=== PATIENT | female | born 1955 | race Caucasian/White ===

== ENCOUNTER 2023-07-20 07:10 | Outpatient (OUT) | payer MEDICARE, SELFPAY ==
[2023-07-20 08:28] LABS: Alanine Aminotransferase 35 U/L (14-59); Albumin Globulin Ratio 1.2; Albumin Level 3.8 g/dL (3.4-5.0); Alkaline Phosphatase 61 U/L (46-116); Anion Gap 10.3; Aspartate Amino Transferase 18 U/L (15-37); BUN Creatinine Ratio 12.1; Bilirubin Total 1.4 mg/dL (0.2-1.0); Calcium 9.1 mg/dL (8.5-10.1); Carbon Dioxide 32.7 mmol/L (21.0-32.0); Chloride 104 mmol/L (98-107); Chol HDL Ratio 2.9; Cholesterol 186 mg/dL (<=200); Estimated GFR (African America >60 (>=60); Estimated GFR (Non-African Ame >60 (>=60); Globulin 3.3 g/dL; Glucose 110 mg/dL (74-106); HDL Cholesterol 65 mg/dL (40-60); Sodium 143 mmol/L (136-145); Total Protein 7.1 g/dL (6.4-8.2); Triglycerides 47 mg/dL (<=150); VLDL CHOLESTEROL 9.4 mg/dL
== END 2023-07-20 07:11 | disposition home or self-care (01) ==
PROVIDERS: Visit Provider Nurse Practitioner Family
DX: E78.2 Mixed hyperlipidemia (principal); I10 Essential (primary) hypertension
CPT/HCPCS: 36415; 80053; 80061

== ENCOUNTER 2023-07-20 07:15 | Outpatient (OUT) | payer MEDICARE, SELFPAY ==
[2023-07-20 07:34] LABS: Basophils Absolute Auto 0.1 10^3/uL (0.0-0.1); Basophils Percent Auto 1.2 % (0.2-2.0); Eosinophils Absolute Auto 0.1 10^3/uL (0.0-0.7); Eosinophils Percent Auto 3.1 % (0.9-7.0); Hematocrit 39.4 % (36.0-48.0); Hemoglobin 13.2 g/dL (12.0-16.0); Lymphocytes Absolute Auto 1.5 10^3/uL (1.2-3.8); Lymphocytes Percent Auto 35.2 % (20.5-60.0); Mean Corpuscular HGB Conc 33.5 g/dL (29.9-35.2); Mean Corpuscular Hemoglobin 32.1 pg (26.7-34.0); Mean Corpuscular Volume 95.9 fL (81.0-99.0); Mean Platelet Volume 9.4 fL (9.5-13.5); Monocytes Absolute Auto 0.4 10^3/uL (0.3-0.8); Neutrophils Absolute Auto 2.2 10^3/uL (1.4-6.5); Neutrophils Percent Auto 51.5 % (43.0-75.0); Platelet Count 215 10^3/uL (150-450); Red Blood Count 4.11 10^6/uL (4.20-5.40); White Blood Count 4.2 10^3/uL (4.0-11.0)
[2023-07-20 07:53] LABS: Estimated Average Glucose 114 mg/dL; Glycohemoglobin A1C 5.6 % (4.5-6.2)
== END 2023-07-20 07:16 | disposition home or self-care (01) ==
LOC: LAB 07:15
DX: Z00.00 Encounter for general adult medical examination without abnormal findings (principal); E78.2 Mixed hyperlipidemia; I10 Essential (primary) hypertension
CPT/HCPCS: 36415; 80053; 80061; 83036; 84443; 85025

== ENCOUNTER 2024-02-01 07:06 | Outpatient (OUT) | payer MEDICARE, SELFPAY ==
--- OUTSIDE RECORDS SUMMARY | 2024-02-01 07:11 | XMS_ITS | CCD ---
Author Organization [facility] Care Team Providers Care Video Conference Specialist Name Role Phone Becky Holder Unavailable GEORGE Holder Primary Care Provider GEORGE Holder Attending Provider [phone] MD Sylvie Merritt Emergency Provider [phone] MD Jessica Chawla Jr Emergency Provider MD Selma Almendarez Admit Provider MD Selma Almendarez Attending Provider DO Stephane Juárez Attending Provider GEORGE Holder Primary Care Provider GEORGE Holder Attending Provider [phone] MD Sylvie Merritt Emergency Provider [phone] MD Jessica Chawla Jr Emergency Provider MD Selma Almendarez Admit Provider DO Stephane Juárez Attending Provider MD Henrik Shafer V Attending Provider Chrissy Herrera Unavailable GEORGE Holder Primary Care Provider MD Henrik Shafer V Attending Provider Becky Holder Primary Care Unavailable Henrik Shafer V Admitting Unavailable Henrik Shafer V Attending Unavailable Becky Holder Admitting Unavailable Kaple, Becky Primary Care Unavailable Becky Holder Attending Unavailable Kaple, Becky Primary Care Unavailable Henrik Shafer V Admitting Unavailable Henrik Shafer V Attending Unavailable Stephane Juárez Attending Unavailable Selma Almendarez Admitting Unavailable Kaple, Becky Primary Care Unavailable Becky Holder Attending Unavailable Gallo, Becky Admitting Unavailable Kaple, Becky Primary Care Unavailable Stephane Juárez Admitting Unavailable Stephane Juárez Attending Unavailable Kaple, Becky Primary Care Unavailable KapleBecky Attending Unavailable Kaple, Becky Admitting Unavailable Kaple, Becky Primary Care Unavailable Becky Holder Attending Unavailable Gallo, Becky Admitting Unavailable Kaple, Becky Primary Care Unavailable Sylvie Merritt Admitting Unavailable Sylvie Merritt Attending Unavailable Gallo, Becky Primary Care Unavailable MIRTHA MARS Attending Unavailable MIRTHA MARS Attending Unavailable MARY CANTU Referring Unavailable MARY CANTU Attending Unavailable Medications Current Medications Medication Drug Class(es) Dates Sig (Normalized) Sig (Original) amLODIPine 5 mg oral tablet (20 sources) Dihydropyridine Calcium Channel Bella Start: 04-19-2022 take 10 mg by mouth at bedtime Amlodipine Active 10 MG PO Bedtime April 19, 2022 12:41pm Start: 04-11-2022 take 1 tablet by chay th once daily amLODIPine Besylate 10 MG 1 tablet Orally Once a day at night for 30 days Mar, Active Start: 04-11-2022 End: 04-19-2022 take 5 mg by mouth at bedtime Amlodipine Discontinued 5 MG PO Bedtime April 17, 2022 1:00am April 19, 2022 12:43pm Ascorbic Acid (10 sources) Vitamin C Vitamin C Active atorvastatin 20 mg oral tablet (20 sources) HMG-CoA Reductase Inhibitor Start: 2022 take 20 mg by mouth once daily Atorvastatin Active 20 MG PO Daily April 10, 2022 1:00am Biotin (15 sources) Biotin Active carvedilol 25 mg oral tablet (20 sources) alpha-Adrenergic Bella, beta-Adrenergic Bella Start: 2022 take 25 mg by mouth twice daily Carvedilol Active 25 MG PO Twice daily April 10, 2022 1:00am hydroCHLOROthiazide 12.5 mg oral capsule (12 sources) Thiazide Diuretic Start: 2022 take 1 capsule by mouth once daily in the morning as needed hydroCHLOROthiazide 12.5 MG 1 capsule in the morning Orally Once a day PRN ONLY for 30 days Apr, Active lisinopril 20 mg oral tablet (19 sources) Angiotensin Converting Enzyme Inhibitor Start: 2022 take 20 mg by mouth once daily Lisinopril Active 20 MG PO Daily April 19, 2022 1:00am take 1 tablet by chay th every twenty-four hours Lisinopril 30 MG 1 tablet Orally Once a day Active magnesium oxide 400 mg oral tablet (6 sources) Start: 04-19-2022 take 400 mg by mouth once daily Magnesium Oxide Active 400 MG PO Daily April 19, 2022 1:00am Multivitamin Adult - (15 sources) take 1 tablet by mouth once daily Multivitamin Adult - 1 tablet Orally Once a day Active Multivitamin Rodrick lt - as directed Orally Active Vitamin D3 (10 sources) Vitamin D3 Activ e Zinc (10 sources) Zinc Active Completed/Discontinued Medications Medication Drug Class(es) Dates Sig (Normalized) Sig (Original) hydroCHLOROthiazide 25 mg / lisinopril 20 mg oral tablet (10 sources) Thiazide Diuretic, Angiotensin Converting Enzyme Inhibitor Start: 04-10-2022 End: 04-19-2022 take 1 tablet by mouth once daily Lisinopril-Hydroc hlorothiazide Discontinued 1 TAB PO Daily April 10, 2022 1:00am April 19, 2022 12:43pm Problems Active Problems Problem Classification Problem Date Documented Da te Episodic/Chronic Conduction disorders (16 sources) Left bundle branch block; Translations: [Left bundle-branch block, unspecified] Onset: 03-26-2023 Chronic Diabetes mellitus without complication (20 sources) Prediabetes; Translations: [Other abnormal glucose] Onset: 03-06-2021 Resolved: 03-06-2021 Episodic Disorders of lipid metabolism (20 sources) Mixed hyperlipidemia; Translations: [Mixed hyperlipidemia] Onset: 03-06-2021 Resolved: 03-06-2021 Chronic Essential hypertension (20 sources) Essential hypertension; Translations: [Essential (primary) hypertension] Onset: 03-06-2021 Resolved: 03-06-2021 Chronic Osteoarthritis (15 sources) Arthritis of left knee; Translations: [Unilateral primary osteoarthritis, left knee] Chronic Other aftercare (1 source) Encounter for follow-up examination after completed treatment for conditions other than malignant neoplasm Episodic Other liver diseases (7 sources) Increased bilirubin level; Translations: [Unspecified jaundice] 04-17-2022 Episodic Other nutritional; endocrine; and metabolic disorders (15 sources) Obese class I; Translations: [Body mass index (BMI) 33.0-33.9, adult] Chronic Other nutritional; endocrine; and metabolic disorders (2 sources) Body mass index (BMI) 33.0-33.9, adult Onset: 03-06-2021 Resolved: 03-06-2021 Chronic Other nutritional; endocrine; and metabolic disorders (6 sources) Body mass index 30+ - obesity; Translations: [Obesity, unspecified] Chronic Other nutritional; endocrine; and metabolic disorders (1 source) Obesity, unspecified Chronic Other screening for suspected conditions (not mental disorders or infectious disease) (20 sources) Encounter for screening for malignant neoplasm of colon; Translations: [Encounter for screening mammogram for malignant neoplasm of breast] Onset: 03-06-2021 Resolved: 03-06-2021 Episodic Residual codes; unclassified (2 sources) Asymptomatic menopausal state Onset: 03-06-2021 Resolved: 03-06-2021 Episodic Residual codes; unclassified (2 sources) Body mass index 20-24 - normal; Translations: [Body mass index (BMI) 23.0-23.9, adult] Episodic Residual codes; unclassified (1 source) Body mass index (BMI) 23.0-23.9, adult Episodic Past or Other Problems Problem Classification Problem Date Documented Da te Episodic/Chronic Fluid and electrolyte disorders (20 sources) Acute hyponatremia; Translations: [Hypo-osmolality and hyponatremia] Onset: 04-18-2022 04-17-2022 Episodic Other liver diseases (9 sources) Unspecified jaundice; Translations: [Disorders of bilirubin excretion] Onset: 03-06-2021 Resolved: 03-06-2021 Episodic Results Test Name Value Interpretation Reference Range Facility Office Visiton 07-23-2023 Follow-up visit [id number] Elma Kessler 1955 F Date Provider Department Center 07/23/2023 MIRTHA MCCULLOUGH CARD [facility] Family History Problem Relation Age of Onset Brain cancer Mother Heart attack Father 39 Sudden Father Family Status - Relation Status Age at Mother Father Level of Service:02041 MS OFFICE/OUTPATIENT ESTABLISHED LOW MDM 20 MIN Reason for Visit and Comments: Hypertension [572665] Hyperlipidemia [182] [facility] BI MAMMOGRAM SCREENING TOMOS YNTHESIS BILATERALon 07-08-2023 BI MAMMOGRAM SCREENING TOMOSYNTHESIS BILATERAL This is a summary report. The complete report is available in the patient's medical record. If you cannot access the medical record, please contact the sending organization for a detailed fax or copy. EXAM: BI MAMMOGRAM SCREENING TOMOSYNTHESIS BILATERAL 07/08/2023 10:25 AM HISTORY: Screening. COMPARISON: 05/19/2018 TECHNIQUE: Bilateral digital tomosynthesis MLO and CC views of the breasts were obtained, with creation of synthetic 2D views. Computer aided detection was utilized using [employer]. FINDINGS: The breasts are heterogeneously dense, which may obscure small masses. No suspicious masses, architectural distortion, or calcifications in either breast. IMPRESSION: No mammographic evidence of malignancy. BI-RADS 1: Negative Recommendation: Routine Screening Mammogram in 1 Year Breast Laterality: Bilateral A letter of notification will be sent to the patient regarding the results. Electronically signed: Kavon Florence. Normal [facility] Office Visiton 05-17-2023 Follow-up visit [id number] Elma Kessler. 1955 Date Provider Department Center 05/17/2023 07032-OEIYMARY CANTU [facility] INT MED Comprehensiv Family History Problem Relation Age of Onset Brain cancer Mother Heart attack Father 39 Sudden Father Family Status - Relation Status Age at Mother Father Level of Service:07705 MS INITIAL PREVENTIVE MEDICINE NEW PATIENT 65YRS&> Reason for Visit and Comments: Establish Care [42] [facility] Office Visiton 03-26-2023 Follow-up visit [id number] Elma Kessler. 1955 F Date Provider Department Center 03/26/2023 MIRTHA MCCULLOUGH [facility] Family History Problem Relation Age of Onset Heart attack Father 39 Sudden Father Family Status - Relation Status Age at Father Level of Service:52208 MS OFFICE/OUTPATIENT ESTABLISHED LOW MDM 20 MIN Reason for Visit and Comments: Hypertension [668110] Normal [facility] A1C HEMOGLOBINon 11-12-2022 HbA1c (Bld) [Mass fraction] 5.6 % [employer] [facility] [employer] Other HbA1c (Bld) [Mass fraction]o n 11-12-2022 A1C HEMOGLOBIN [facility] [employer] Other Basic Metabolic Panelon 10-19 Anion gap [Moles/Vol] 10.7 mmol/L Normal 6.0-15.0 [facility] Comment on above: Performed By: #### C MP #### [facility] [address] Calcium [Mass/Vol] 9.5 mg/dL Normal 8.6-10.3 [facility] Comment on above: Result Comment: PERF ORMED BY: [facility] [address] [place] [address] PATHOLOGIST SOFTWARE QUALITY ENGINEER PRIYA CHERRY M.D. Performed By: #### C MP #### [facility] [address] [place] [address] [place] Chloride [Moles/Vol] 102 mmol/L Normal 98-107 [facility] Comment on above: Performed By: #### C MP #### [facility] [address] [place] [address] [place] CO2 [Moles/Vol] 32.7 mmol/L High 21.0-31.0 [facility] Comment on above: Performed By: #### C MP #### [facility] [address] [place] [address] [place] Creatinine [Mass/Vol] 0.57 mg/dL Low 0.60-1.20 [facility] Comment on above: Performed By: #### C MP #### [facility] [address] [place] [address] [place] GFR/1.73 sq M.predicted MDRD (S/P/Bld) [Vol rate/Area] mL/min/{1.73_m2} Normal [facility] Comment on above: Performed By: #### C MP #### [facility] [address] Glucose [Mass/Vol] 99 mg/dL Normal 70-100 [facility] Comment on above: Result Comment: [place] Glucose Reference Range is dependent on time and content of last meal. Glucose of more than 200 mg/dL in a nonstressed, ambulatory subject supports the diagnosis of Diabetes Mellitus. ADA recommended reference range Performed By: #### C MP #### [facility] [address] Potassium [Moles/Vol] 4.4 mmol/L Normal 3.5-5.1 [facility] Comment on above: Performed By: #### C MP #### [facility] [address] Sodium [Moles/Vol] 141 mmol/L Normal 136-145 [facility] Comment on above: Performed By: #### C MP #### [facility] [address] Urea nitrogen [Mass/Vol] 10 mg/dL Normal 7-25 [facility] Comment on above: Performed By: #### C MP #### [facility] [address] Calcium [Mass/volume] in Ser um or PlasmaOrdered By: Henrik Shafer on 10-30-2022 Calcium [Mass/Vol] 9.5 mg/dL 8.6-10.3 [facility] Carbon dioxide, total [Moles /volume] in Serum or PlasmaOrdered By: Henrik Shafer on 10-30-2022 CO2 [Moles/Vol] 32.7 mmol/L 21.0-31.0 [facility] Chloride [Moles/volume] in S raul or PlasmaOrdered By: Henrik Shafer on 10-30-2022 Chloride [Moles/Vol] 102 mmol/L 98-107 [facility] Creatinine [Mass/volume] in Serum or PlasmaOrdered By: Henrik Shafer on 10-30-2022 Creatinine [Mass/Vol] 0.57 mg/dL 0.60-1.20 [facility] Glucose [Mass/volume] in Ser um or PlasmaOrdered By: Henrik Shafer on 10-30-2022 Glucose [Mass/Vol] 99 mg/dL 70-100 [facility] Comment on above: ADA recommended refe rence rangeRandom Glucose Reference Range is dependent on time and content of last meal. Glucose of more than 200 mg/dL in a nonstressed, ambulatory subject supports the diagnosis of Diabetes Mellitus. No Panel InformationOrdered By: Henrik Shafer on 10-30-2022 Estimated GFR (CKD-EPI) > 60.0 mL/Min [facility] Creatinine Clearance (Chem N/A [facility] Potassium [Moles/volume] in Serum or PlasmaOrdered By: Henrik Shafer on 10-30-2022 Potassium [Moles/Vol] 4.4 mmol/L 3.5-5.1 [facility] Serum or plasma anion gap de terminationOrdered By: Henrik Shafer on 10-30-2022 Anion gap [Moles/Vol] 10.7 mmol/L 6.0-15.0 [facility] Sodium [Moles/volume] in Ser um or PlasmaOrdered By: Henrik Shafer on 10-30-2022 Sodium [Moles/Vol] 141 mmol/L 136-145 [facility] Urea nitrogen [Mass/volume] in Serum or PlasmaOrdered By: Henrik Shafer on 10-30-2022 Urea nitrogen [Mass/Vol] 10 mg/dL 7-25 [facility] Comprehensive Metabolic Pane nettie 07-09-2022 Albumin [Mass/Vol] 4.1 g/dL Normal 3.5-5.7 [facility] Comment on above: Order Comment: PT FA STED 12 HOURS Reason for Exam Hypertension Performed By: #### M GUERDA Young #### [address] Albumin/Globulin [Mass ratio] 1.6 {ratio} Normal [facility] Comment on above: Order Comment: PT FA STED 12 HOURS Reason for Exam Hypertension Performed By: #### M G, BMP #### [facility] [address] [place] [id number] [place] ALP [Catalytic activity/Vol] 66 U/L Normal 34-104 [facility] Comment on above: Order Comment: PT FA STED 12 HOURS Reason for Exam Hypertension Result Comment: PERF ORMED BY: [place] [address] PATHOLOGIST SOFTWARE QUALITY ENGINEER PRIYA CHERRY M.D. Performed By: #### M G, BMP #### [facility] [address] ALT [Catalytic activity/Vol] 22 U/L Normal 7-52 [facility] Comment on above: Order Comment: PT FA STED 12 HOURS Reason for Exam Hypertension Performed By: #### M G, BMP #### [address] Anion gap [Moles/Vol] 11.5 mmol/L Normal 6.0-15.0 [facility] Comment on above: Order Comment: PT FA STED 12 HOURS Reason for Exam Hypertension Performed By: #### M G, BMP #### [facility] [address] [place], [place] [id number] [place] AST [Catalytic activity/Vol] 16 U/L Normal 13-39 [facility] Comment on above: Order Comment: PT FA STED 12 HOURS Reason for Exam Hypertension Performed By: #### M G, BMP #### [facility] [address] [place] [address] [place] Bilirubin [Mass/Vol] 1.4 mg/dL High 0.3-1.0 [facility] Comment on above: Order Comment: PT FA STED 12 HOURS Reason for Exam Hypertension Result Comment: Samp les from patients who have taken Naproxen have shown spurious elevation in Total Bilirubin levels. A metabolite of Naproxen, O-desmethylnaproxen, has been shown to interfere with the Jendrnehaik-Grof method for measuring Total Bilirubin. Performed By: #### M G, BMP #### [facility] [address] [place] [address] [place] Calcium [Mass/Vol] 9.4 mg/dL Normal 8.6-10.3 [facility] Comment on above: Order Comment: PT FA STED 12 HOURS Reason for Exam Hypertension Performed By: #### M G, BMP #### [facility] [address] [place] [address] [place] Chloride [Moles/Vol] 104 mmol/L Normal 98-107 [facility] Comment on above: Order Comment: PT FA STED 12 HOURS Reason for Exam Hypertension Performed By: #### M G, BMP #### [facility] [address] [place] [address] [place] CO2 [Moles/Vol] 30.0 mmol/L Normal 21.0-31.0 [facility] Comment on above: Order Comment: PT FA STED 12 HOURS Reason for Exam Hypertension Performed By: #### M G, BMP #### [facility] [address] [place] [address] [place] Creatinine [Mass/Vol] 0.68 mg/dL Normal 0.60-1.20 [facility] Comment on above: Order Comment: PT FA STED 12 HOURS Reason for Exam Hypertension Performed By: #### M G, BMP #### [facility] [address] [place] [id number] [place] GFR/1.73 sq M.predicted MDRD (S/P/Bld) [Vol rate/Area] mL/min/{1.73_m2} [facility] Comment on above: Order Comment: PT FA STED 12 HOURS Reason for Exam Hypertension Performed By: #### M G, BMP #### [facility] [address] [place] [id number] [place] Globulin (S) [Mass/Vol] 2.5 g/dL [facility] Comment on above: Order Comment: PT FA STED 12 HOURS Reason for Exam Hypertension Performed By: #### M G, BMP #### [facility] [address] [place] [id number] [place] Glucose [Mass/Vol] 95 mg/dL Normal 70-100 [facility] Comment on above: Order Comment: PT FA STED 12 HOURS Reason for Exam Hypertension Result Comment: [place] Glucose Reference Range is dependent on time and content of last meal. Glucose of more than 200 mg/dL in a nonstressed, ambulatory subject supports the diagnosis of Diabetes Mellitus. ADA recommended reference range Performed By: #### M G, BMP #### [facility] [address] [place] [address] [place] Potassium [Moles/Vol] 4.5 mmol/L Normal 3.5-5.1 [facility] Comment on above: Order Comment: PT FA STED 12 HOURS Reason for Exam Hypertension Performed By: #### M G, BMP #### [facility] [address] [place] [address] Protein [Mass/Vol] 6.6 g/dL Normal 6.4-8.9 [facility] Comment on above: Order Comment: PT FA STED 12 HOURS Reason for Exam Hypertension Performed By: #### M G, BMP #### [facility] [address] [place] [address] [place] Sodium [Moles/Vol] 141 mmol/L Normal 136-145 [facility] Comment on above: Order Comment: PT FA STED 12 HOURS Reason for Exam Hypertension Performed By: #### M G, BMP #### [facility] [address] [place], [place] [id number] [place] Urea nitrogen [Mass/Vol] 15 mg/dL Normal 7-25 [facility] Comment on above: Order Comment: PT FA STED 12 HOURS Reason for Exam Hypertension Performed By: #### M G, BMP #### [facility] [address] [place] [address] US renal doppleron 3 US renal doppler [facility] [place] [address] [place] [address] Ultrasound Report Signed Patient: Phan Kessler MR#: [id number] : 1955 Acct:[id number] Age/Sex: 66 / F ADM Date: 05/29/22 Loc: Room: Type: [facility] Attending Dr: Henrik Shafer MD Ordering Provider: Henrik Shafer MD Date of Service: 05/29/22 US/US renal doppler: I10 Copies to: Henrik Shafer MD Bilateral renal artery duplex examination Indication for study: Hypertension PROCEDURE: Color-flow duplex scanning is used to interrogate the aorta, mesenteric, and renal arteries. The aorta is normal in diameter of 15 mm. Peak systolic velocity of the aorta is 143 cm/s. There is a crji-gv-hxdrzubu flow disturbance across the celiac origin with a peak systolic velocity of 239 cm/s. There is a yfzw-wf-fhwbrwdn flow disturbance across the superior mesenteric artery the peak systolic velocity of 387 cm/s suggesting moderate stenosis. Right renal parenchymal height is 9.6 cm with a cortical thickness of 0.9 cm. Left renal parenchymal height is 9.8 cm with a cortical thickness of just under 12 mm. Velocities across right renal artery range from a low of 148 mm midsegment to 157 in this distal segment. Velocities across the left renal artery measure from a low of 99 to a high of 190 cm/s. Arcuate artery velocities in the proximal the right kidney at between 60 and 21 cm/s. Arterial velocities in the left renal parenchyma between 19 and 24 cm/s. Both renal veins are patent. 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 Both kidneys are similar in height with no significant focal stenosis noted in either renal artery. However, the cortical thickness of the right renal kidney is slightly diminished. Impression dictated by: Yoel Bobby M.D.05/30/2022 4:23 PM Dictation Location: [place] [address] Tech: Ekta Sherman Transcribed By: RUPINDER 05/30/22 162 Dictated By: Yoel Bobby MD 05/30/22 1614 Signed By: 05/30/22 1623 Normal [facility] Alanine aminotransferase [En zymatic activity/volume] in Serum or PlasmaOrdered By: Becky Holder on 05-04-2022 ALT [Catalytic activity/Vol] 38 U/L 7-52 [facility] Albumin [Mass/volume] in Ser um or Plasma by Bromocresol green (BCG) dye binding methoOrdered By: Becky Holder on 05-04-2022 Albumin BCG dye [Mass/Vol] 4.6 g/dL 3.5-5.7 [facility] Alkaline phosphatase [Enzyma tic activity/volume] in Serum or PlasmaOrdered By: Becky Holder on 05-04-2022 ALP [Catalytic activity/Vol] 65 U/L 34-104 [facility] Aspartate aminotransferase [ Enzymatic activity/volume] in Serum or PlasmaOrdered By: Becky Holder on 05-04-2022 AST [Catalytic activity/Vol] 17 U/L 13-39 [facility] Bilirubin.total [Mass/volume ] in Serum or PlasmaOrdered By: Becky Holder on 05-04-2022 Bilirubin [Mass/Vol] 1.3 mg/dL 0.3-1.0 [facility] Comment on above: Samples from patient s who have taken Naproxen have shown spurious elevation in Total Bilirubin levels. A metabolite of Naproxen, O-desmethylnaproxen, has been shown to interfere with the Alex method for measuring Total Bilirubin. Calcium [Mass/volume] in Ser um or PlasmaOrdered By: Becky Holder on 05-04-2022 Calcium [Mass/Vol] 9.6 mg/dL 8.6-10.3 [facility] Carbon dioxide, total [Moles /volume] in Serum or PlasmaOrdered By: Becky Holder on 05-04-2022 CO2 [Moles/Vol] 28.6 mmol/L 21.0-31.0 [facility] Chloride [Moles/volume] in S raul or PlasmaOrdered By: Becky Holder on 05-04-2022 Chloride [Moles/Vol] 98 mmol/L 98-107 [facility] Comprehensive Metabolic Pane nettie 05-04-2022 Albumin [Mass/Vol] 4.766363 g/dL Normal 3.5-5.7 g/dL [employer] [facility] [employer] Other Bilirubin [Mass/Vol] 1.2904827 mg/dL High 0.3- 1.0 mg/dL [employer] Other Calcium [Mass/Vol] 9.4703929 mg/dL Normal 8.6-10 .3 mg/dL [employer] Other CO2 [Moles/Vol] 28.28143774 mmol/L Normal 21.0-3 1.0 mmol/L [employer] [facility] [employer] Other Creatinine [Mass/Vol] 0.76908610 mg/dL Normal 0. 60-1.20 mg/dL [employer] Other Potassium [Moles/Vol] 4.08391537 mmol/L Normal 3 .5-5.1 mmol/L [employer] Other Protein [Mass/Vol] 7.461034 g/dL Normal 6.4-8.9 g/dL [employer] Other Comprehensive Metabolic Panel 2.6 g/dL [facility] [employer] Other Albumin [Mass/Vol] 4.6 g/dL Normal 3.5-5.7 [place] [facility] [facility] Comment on above: Order Comment: PT NO T FASTING Reason for Exam Essential (primary) hypertension;Acute hyponatremia;Hypokale Performed By: #### C MP #### [facility] [address] Albumin/Globulin [Mass ratio] 1.8 {ratio} Normal [facility] Comment on above: Order Comment: PT NO T FASTING Reason for Exam Essential (primary) hypertension;Acute hyponatremia;Hypokale Performed By: #### C MP #### [facility] [address] ALP [Catalytic activity/Vol] 65 U/L Normal 34-104 [facility] Comment on above: Order Comment: PT NO T FASTING Reason for Exam Essential (primary) hypertension;Acute hyponatremia;Hypokale Result Comment: PERF ORMED BY: [place] [id number] PATHOLOGIST SOFTWARE QUALITY ENGINEER PRIYA CHERRY M.D. Performed By: #### C MP #### [facility] [address] ALT [Catalytic activity/Vol] 38 U/L Normal 7-52 [facility] Comment on above: Order Comment: PT NO T FASTING Reason for Exam Essential (primary) hypertension;Acute hyponatremia;Hypokale Performed By: #### C MP #### [facility] [address] Anion gap [Moles/Vol] 14.9 mmol/L Normal 6.0-15.0 [facility] Comment on above: Order Comment: PT NO T FASTING Reason for Exam Essential (primary) hypertension;Acute hyponatremia;Hypokale Performed By: #### C MP #### [facility] [address] AST [Catalytic activity/Vol] 17 U/L Normal 13-39 [facility] Comment on above: Order Comment: PT NO T FASTING Reason for Exam Essential (primary) hypertension;Acute hyponatremia;Hypokale Performed By: #### C MP #### [address] Bilirubin [Mass/Vol] 1.3 mg/dL High 0.3-1.0 [facility] Comment on above: Order Comment: PT NO T FASTING Reason for Exam Essential (primary) hypertension;Acute hyponatremia;Hypokale Result Comment: Samp les from patients who have taken Naproxen have shown spurious elevation in Total Bilirubin levels. A metabolite of Naproxen, O-desmethylnaproxen, has been shown to interfere with the Jendrnehaik-Grof method for measuring Total Bilirubin. Performed By: #### C MP #### [address] Calcium [Mass/Vol] 9.6 mg/dL Normal 8.6-10.3 [facility] Comment on above: Order Comment: PT NO T FASTING Reason for Exam Essential (primary) hypertension;Acute hyponatremia;Hypokale Performed By: #### C MP #### [facility] [address] [place] [address] [place] Chloride [Moles/Vol] 98 mmol/L Normal 98-107 [facility] Comment on above: Order Comment: PT NO T FASTING Reason for Exam Essential (primary) hypertension;Acute hyponatremia;Hypokale Performed By: #### C MP #### [address] CO2 [Moles/Vol] 28.6 mmol/L Normal 21.0-31.0 [facility] Comment on above: Order Comment: PT NO T FASTING Reason for Exam Essential (primary) hypertension;Acute hyponatremia;Hypokale Performed By: #### C MP #### [facility] [address] Creatinine [Mass/Vol] 0.70 mg/dL Normal 0.60-1.20 [facility] Comment on above: Order Comment: PT NO T FASTING Reason for Exam Essential (primary) hypertension;Acute hyponatremia;Hypokale Performed By: #### C MP #### [facility] [address] [place] [address] [place] GFR/1.73 sq M.predicted MDRD (S/P/Bld) [Vol rate/Area] mL/min/{1.73_m2} [facility] Comment on above: Order Comment: PT NO T FASTING Reason for Exam Essential (primary) hypertension;Acute hyponatremia;Hypokale Performed By: #### C MP #### [facility] [address] Globulin (S) [Mass/Vol] 2.6 g/dL [facility] Comment on above: Order Comment: PT NO T FASTING Reason for Exam Essential (primary) hypertension;Acute hyponatremia;Hypokale Performed By: #### C MP #### [facility] [address] Glucose [Mass/Vol] 109 mg/dL Normal 74-109 [facility] Comment on above: Order Comment: PT NO T FASTING Reason for Exam Essential (primary) hypertension;Acute hyponatremia;Hypokale Result Comment: [place] Glucose Reference Range is dependent on time and content of last meal. Glucose of more than 200 mg/dL in a nonstressed, ambulatory subject supports the diagnosis of Diabetes Mellitus. ADA recommended reference range Performed By: #### C MP #### [facility] [address] Potassium [Moles/Vol] 4.5 mmol/L Normal 3.5-5.1 [facility] Comment on above: Order Comment: PT NO T FASTING Reason for Exam Essential (primary) hypertension;Acute hyponatremia;Hypokale Performed By: #### C MP #### [facility] [address] Protein [Mass/Vol] 7.2 g/dL Normal 6.4-8.9 [facility] Comment on above: Order Comment: PT NO T FASTING Reason for Exam Essential (primary) hypertension;Acute hyponatremia;Hypokale Performed By: #### C MP #### [facility] [address] Sodium [Moles/Vol] 137 mmol/L Normal 136-145 [facility] Comment on above: Order Comment: PT NO T FASTING Reason for Exam Essential (primary) hypertension;Acute hyponatremia;Hypokale Performed By: #### C MP #### [facility] [address] Urea nitrogen [Mass/Vol] 13 mg/dL Normal 7-25 [facility] Comment on above: Order Comment: PT NO T FASTING Reason for Exam Essential (primary) hypertension;Acute hyponatremia;Hypokale Performed By: #### C MP #### [facility] [address] Creatinine [Mass/volume] in Serum or PlasmaOrdered By: Becky Holder on 05-04-2022 Creatinine [Mass/Vol] 0.70 mg/dL 0.60-1.20 [facility] Globulin Calc (S) [Mass/Vol] Ordered By: Becky Holder on 05-04-2022 Globulin (S) [Mass/Vol] 2.6 g/dL [facility] Glucose [Mass/volume] in Ser um or PlasmaOrdered By: Becky Holder on 05-04-2022 Glucose [Mass/Vol] 109 mg/dL 74-109 [facility] Comment on above: ADA recommended refe rence rangeRandom Glucose Reference Range is dependent on time and content of last meal. Glucose of more than 200 mg/dL in a nonstressed, ambulatory subject supports the diagnosis of Diabetes Mellitus. Laboratory - Chemistry and C hemistry - challengeOrdered By: Becky Holder on 05-04-2022 GFR/1.73 sq M.predicted MDRD (S/P/Bld) [Vol rate/Area] mL/min/{1.73_m2} [facility] No Panel InformationOrdered By: Becky Holder on 05-04-2022 Pharmacy Creatinine Clearance (Chem N/A [facility] Potassium [Moles/volume] in Serum or PlasmaOrdered By: Becky Holder on 05-04-2022 Potassium [Moles/Vol] 4.5 mmol/L 3.5-5.1 [facility] Protein [Mass/volume] in Ser um or PlasmaOrdered By: Becky Holder on 05-04-2022 Protein [Mass/Vol] 7.2 g/dL 6.4-8.9 [facility] Serum or plasma albumin/glob ulin mass ratioOrdered By: Becky Holder on 05-04-2022 Albumin/Globulin [Mass ratio] 1.8 {ratio} [facility] Serum or plasma anion gap de terminationOrdered By: Becky Holder on 05-04-2022 Anion gap [Moles/Vol] 14.9 mmol/L 6.0-15.0 [facility] Sodium [Moles/volume] in Ser um or PlasmaOrdered By: Becky Holder on 05-04-2022 Sodium [Moles/Vol] 137 mmol/L 136-145 [facility] Urea nitrogen [Mass/volume] in Serum or PlasmaOrdered By: Becky Holder on 05-04-2022 Urea nitrogen [Mass/Vol] 13 mg/dL 09-11 [facility] Alanine aminotransferase [En zymatic activity/volume] in Serum or PlasmaOrdered By: Becky Holder on 04-30-2022 ALT [Catalytic activity/Vol] 42 U/L [facility] Albumin [Mass/volume] in Ser um or Plasma by Bromocresol green (BCG) dye binding methoOrdered By: Becky Holder on 04-30-2022 Albumin BCG dye [Mass/Vol] 4.4 g/dL 3.5-5.7 [facility] Alkaline phosphatase [Enzyma tic activity/volume] in Serum or PlasmaOrdered By: Becky Holder on 04-30-2022 ALP [Catalytic activity/Vol] 65 U/L 34-104 [facility] Aspartate aminotransferase [ Enzymatic activity/volume] in Serum or PlasmaOrdered By: Becky Holder on 04-30-2022 AST [Catalytic activity/Vol] 23 U/L 13-39 [facility] Bilirubin.total [Mass/volume ] in Serum or PlasmaOrdered By: Becky Holder on 04-30-2022 Bilirubin [Mass/Vol] 1.0 mg/dL 0.3-1.0 [facility] Calcium [Mass/volume] in Ser um or PlasmaOrdered By: Becky Holder on 04-30-2022 Calcium [Mass/Vol] 9.7 mg/dL 8.6-10.3 [facility] Carbon dioxide, total [Moles /volume] in Serum or PlasmaOrdered By: Becky Holder on 04-30-2022 CO2 [Moles/Vol] 30.6 mmol/L 21.0-31.0 [facility] Chloride [Moles/volume] in S raul or PlasmaOrdered By: Becky Holder on 04-30-2022 Chloride [Moles/Vol] 102 mmol/L 98-107 [facility] Comprehensive Metabolic Pane nettie 04-30-2022 Albumin [Mass/Vol] 4.4 g/dL Normal 3.5-5.7 [facility] Comment on above: Order Comment: PT NO T FASTING Reason for Exam Essential (primary) hypertension;Acute hyponatremia;Hypokale Performed By: #### C MP #### [facility] [address] Albumin/Globulin [Mass ratio] 1.8 {ratio} Normal [facility] Comment on above: Order Comment: PT NO T FASTING Reason for Exam Essential (primary) hypertension;Acute hyponatremia;Hypokale Performed By: #### C MP #### [facility] [address] [place] [id number] [facility] ALP [Catalytic activity/Vol] 65 U/L Normal 34-104 [facility] Comment on above: Order Comment: PT NO T FASTING Reason for Exam Essential (primary) hypertension;Acute hyponatremia;Hypokale Result Comment: PERF ORMED BY: [place] [address] PATHOLOGIST SOFTWARE QUALITY ENGINEER PRIYA CHERRY M.D. Performed By: #### C MP #### [facility] [address] ALT [Catalytic activity/Vol] 42 U/L Normal 7-52 [facility] Comment on above: Order Comment: PT NO T FASTING Reason for Exam Essential (primary) hypertension;Acute hyponatremia;Hypokale Performed By: #### C MP #### [facility] [address] Anion gap [Moles/Vol] 11.8 mmol/L Normal 6.0-15.0 [facility] Comment on above: Order Comment: PT NO T FASTING Reason for Exam Essential (primary) hypertension;Acute hyponatremia;Hypokale Performed By: #### C MP #### [facility] [address] AST [Catalytic activity/Vol] 23 U/L Normal 13-39 [facility] Comment on above: Order Comment: PT NO T FASTING Reason for Exam Essential (primary) hypertension;Acute hyponatremia;Hypokale Performed By: #### C MP #### [facility] [address] Bilirubin [Mass/Vol] 1.0 mg/dL Normal 0.3-1.0 [facility] Comment on above: Order Comment: PT NO T FASTING Reason for Exam Essential (primary) hypertension;Acute hyponatremia;Hypokale Performed By: #### C MP #### [facility] [address] [place] [address] [place] Calcium [Mass/Vol] 9.7 mg/dL Normal 8.6-10.3 [facility] Comment on above: Order Comment: PT NO T FASTING Reason for Exam Essential (primary) hypertension;Acute hyponatremia;Hypokale Performed By: #### C MP #### [facility] [address] [place] [address] [place] Chloride [Moles/Vol] 102 mmol/L Normal 98-107 [facility] Comment on above: Order Comment: PT NO T FASTING Reason for Exam Essential (primary) hypertension;Acute hyponatremia;Hypokale Performed By: #### C MP #### [facility] [address] CO2 [Moles/Vol] 30.6 mmol/L Normal 21.0-31.0 [facility] Comment on above: Order Comment: PT NO T FASTING Reason for Exam Essential (primary) hypertension;Acute hyponatremia;Hypokale Performed By: #### C MP #### [facility] [address] Creatinine [Mass/Vol] 0.65 mg/dL Normal 0.60-1.20 [facility] Comment on above: Order Comment: PT NO T FASTING Reason for Exam Essential (primary) hypertension;Acute hyponatremia;Hypokale Performed By: #### C MP #### [address] GFR/1.73 sq M.predicted MDRD (S/P/Bld) [Vol rate/Area] mL/min/{1.73_m2} [facility] Comment on above: Order Comment: PT NO T FASTING Reason for Exam Essential (primary) hypertension;Acute hyponatremia;Hypokale Performed By: #### C MP #### [facility] [address] Globulin (S) [Mass/Vol] 2.5 g/dL [facility] Comment on above: Order Comment: PT NO T FASTING Reason for Exam Essential (primary) hypertension;Acute hyponatremia;Hypokale Performed By: #### C MP #### [facility] [address] Glucose [Mass/Vol] 115 mg/dL High 74-109 [facility] Comment on above: Order Comment: PT NO T FASTING Reason for Exam Essential (primary) hypertension;Acute hyponatremia;Hypokale Result Comment: [place] Glucose Reference Range is dependent on time and content of last meal. Glucose of more than 200 mg/dL in a nonstressed, ambulatory subject supports the diagnosis of Diabetes Mellitus. ADA recommended reference range Performed By: #### C MP #### [facility] [address] Potassium [Moles/Vol] 5.4 mmol/L High 3.5-5.1 [facility] Comment on above: Order Comment: PT NO T FASTING Reason for Exam Essential (primary) hypertension;Acute hyponatremia;Hypokale Performed By: #### C MP #### [facility] [address] Protein [Mass/Vol] 6.9 g/dL Normal 6.4-8.9 [facility] Comment on above: Order Comment: PT NO T FASTING Reason for Exam Essential (primary) hypertension;Acute hyponatremia;Hypokale Performed By: #### C MP #### [facility] [address] Sodium [Moles/Vol] 139 mmol/L Normal 136-145 [facility] Comment on above: Order Comment: PT NO T FASTING Reason for Exam Essential (primary) hypertension;Acute hyponatremia;Hypokale Performed By: #### C MP #### [facility] [address] [place] [address] [place] Urea nitrogen [Mass/Vol] 15 mg/dL Normal 7-25 [facility] Comment on above: Order Comment: PT NO T FASTING Reason for Exam Essential (primary) hypertension;Acute hyponatremia;Hypokale Performed By: #### C MP #### [address] Albumin [Mass/Vol] 4.675824 g/dL Normal 3.5-5.7 g/dL [employer] Other Bilirubin [Mass/Vol] 1.8359143 mg/dL Normal 0.3- 1.0 mg/dL [employer] Other Calcium [Mass/Vol] 9.7397706 mg/dL Normal 8.6-10 .3 mg/dL [employer] Other CO2 [Moles/Vol] 30.11546055 mmol/L Normal 21.0-3 1.0 mmol/L [employer] Other Creatinine [Mass/Vol] 0.44999603 mg/dL Normal 0. 60-1.20 mg/dL [employer] Other Potassium [Moles/Vol] 5.62182127 mmol/L High 3 .5-5.1 mmol/L [employer] Other Protein [Mass/Vol] 6.605606 g/dL Normal 6.4-8.9 g/dL [employer] Other Comprehensive Metabolic Panel 2.5 g/dL [employer] [facility] [employer] Other Creatinine [Mass/volume] in Serum or PlasmaOrdered By: Becky Holder on 04-30-2022 Creatinine [Mass/Vol] 0.65 mg/dL 0.60-1.20 [facility] Globulin Calc (S) [Mass/Vol] Ordered By: Becky Holder on 04-30-2022 Globulin (S) [Mass/Vol] 2.5 g/dL [facility] Glucose [Mass/volume] in Ser um or PlasmaOrdered By: Becky Holder on 04-30-2022 Glucose [Mass/Vol] 115 mg/dL 74-109 [facility] Comment on above: ADA recommended refe rence rangeRandom Glucose Reference Range is dependent on time and content of last meal. Glucose of more than 200 mg/dL in a nonstressed, ambulatory subject supports the diagnosis of Diabetes Mellitus. Laboratory - Chemistry and C hemistry - challengeOrdered By: Becky Holder on 04-30-2022 GFR/1.73 sq M.predicted MDRD (S/P/Bld) [Vol rate/Area] mL/min/{1.73_m2} [facility] No Panel InformationOrdered By: Becky Holder on 04-30-2022 Pharmacy Creatinine Clearance (Chem N/A [facility] Potassium [Moles/volume] in Serum or PlasmaOrdered By: Becky Holder on 04-30-2022 Potassium [Moles/Vol] 5.4 mmol/L 3.5-5.1 [facility] Protein [Mass/volume] in Ser um or PlasmaOrdered By: Becky Holder on 04-30-2022 Protein [Mass/Vol] 6.9 g/dL 6.4-8.9 [facility] Serum or plasma albumin/glob ulin mass ratioOrdered By: Becky Holder on 04-30-2022 Albumin/Globulin [Mass ratio] 1.8 {ratio} [facility] Serum or plasma anion gap de terminationOrdered By: Becky Holder on 04-30-2022 Anion gap [Moles/Vol] 11.8 mmol/L 6.0-15.0 [facility] Sodium [Moles/volume] in Ser um or PlasmaOrdered By: Becky Holder on 04-30-2022 Sodium [Moles/Vol] 139 mmol/L 136-145 [facility] Urea nitrogen [Mass/volume] in Serum or PlasmaOrdered By: Becky Holder on 04-30-2022 Urea nitrogen [Mass/Vol] 15 mg/dL 7-25 [facility] Basic Metabolic Panelon Anion gap [Moles/Vol] 13.4 mmol/L Normal 6.0-15.0 [facility] Comment on above: Order Comment: PT IS NON FASTING Performed By: #### Sushil Young, BMP #### [facility] [address] [place] [address] Calcium [Mass/Vol] 9.3 mg/dL Normal 8.2-10.2 [facility] Comment on above: Order Comment: PT IS NON FASTING Result Comment: PERF ORMED BY: [facility] [address] [place] [address] PATHOLOGIST SOFTWARE QUALITY ENGINEER PRIYA CHERRY M.D. Performed By: #### Sushil Young, BMP #### [facility] [address] Chloride [Moles/Vol] 100 mmol/L Normal 95-114 [facility] Comment on above: Order Comment: PT IS NON FASTING Performed By: #### Sushil Young, BMP #### [facility] [address] [place] [id number] [facility] CO2 [Moles/Vol] 29.9 mmol/L Normal 22.0-30.0 [facility] Comment on above: Order Comment: PT IS NON FASTING Performed By: #### M G, BMP #### [facility] [address] Creatinine [Mass/Vol] 0.67 mg/dL Normal 0.44-1.03 [facility] Comment on above: Order Comment: PT IS NON FASTING Performed By: #### M G, BMP #### [facility] [address] Estimated GFR ( Inessa > 60 [facility] Comment on above: Order Comment: PT IS NON FASTING Result Comment: GFR estimated reference range: According to KDOQI guidelines, <60 ml/min/1.73m2 is sufficient to diagnose a patient with chronic kidney disease. Performed By: #### M G, BMP #### [facility] [address] Estimated GFR (Non- Am > 60 [facility] Comment on above: Order Comment: PT IS NON FASTING Performed By: #### M G, BMP #### [facility] [address] Glucose [Mass/Vol] 111 mg/dL High 70-100 [facility] Comment on above: Order Comment: PT IS NON FASTING Result Comment: [place] om Glucose Reference Range is dependent on time and content of last meal. Glucose of more than 200 mg/dL in a nonstressed, ambulatory subject supports the diagnosis of Diabetes Mellitus. ADA recommended reference range Performed By: #### M G, BMP #### [facility] [address] [place] [id number] [place] Potassium [Moles/Vol] 5.3 mmol/L High 3.5-5.1 [facility] Comment on above: Order Comment: PT IS NON FASTING Performed By: #### M G, BMP #### [facility] [address] [place] [id number] [place] Sodium [Moles/Vol] 138 mmol/L Normal 136-146 [facility] Comment on above: Order Comment: PT IS NON FASTING Performed By: #### M G, BMP #### [facility] [address] [place] [id number] [place] Urea nitrogen [Mass/Vol] 11 mg/dL Normal 9-23 [facility] Comment on above: Order Comment: PT IS NON FASTING Performed By: #### M G, BMP #### [facility] [address] [place] [id number] [place] Calcium [Mass/volume] in Ser um or PlasmaOrdered By: Stephane Juárez on 04-23-2022 Calcium [Mass/Vol] 9.3 mg/dL 8.2-10.2 [facility] Carbon dioxide, total [Moles /volume] in Serum or PlasmaOrdered By: Stephane Juárez on 04-23-2022 CO2 [Moles/Vol] 29.9 mmol/L 22.0-30.0 [facility] Chloride [Moles/volume] in S raul or PlasmaOrdered By: Stephane Juárez on 04-23-2022 Chloride [Moles/Vol] 100 mmol/L 95-114 [facility] Creatinine and Glomerular fi ltration rate.predicted panel (S/P/Bld)Ordered By: Stephane Juárez on 04-23-2022 Creatinine [Mass/Vol] 0.67 mg/dL 0.44-1.03 [facility] Estimated glomerular filtrat ion rate (GFR) non- AmericanOrdered By: Stephane Juárez on 04-23-2022 GFR/1.73 sq M.predicted among non-blacks MDRD (S/P/Bld) [Vol rate/Area] > 60 mL/Min [facility] Glucose [Mass/volume] in Ser um or PlasmaOrdered By: Stephane Juárez on 04-23-2022 Glucose [Mass/Vol] 111 mg/dL 70-100 [facility] Comment on above: ADA recommended refe rence rangeRandom Glucose Reference Range is dependent on time and content of last meal. Glucose of more than 200 mg/dL in a nonstressed, ambulatory subject supports the diagnosis of Diabetes Mellitus. No Panel InformationOrdered By: Stephane Juárez on 04-23-2022 Estimated GFR () > 60 mL/Min [facility] Comment on above: GFR estimated refere nce range: According to KDOQI guidelines, <60 ml/min/1.73m2 is sufficient to diagnose a patient with chronic kidney disease. Pharmacy Creatinine Clearance (Chem N/A [facility] Potassium [Moles/volume] in Serum or PlasmaOrdered By: Stephane Juárez on 04-23-2022 Potassium [Moles/Vol] 5.3 mmol/L 3.5-5.1 [facility] Serum or plasma anion gap de terminationOrdered By: Stephane Juárez on 04-23-2022 Anion gap [Moles/Vol] 13.4 mmol/L 6.0-15.0 [facility] Sodium [Moles/volume] in Ser um or PlasmaOrdered By: Stephane Juárez on 04-23-2022 Sodium [Moles/Vol] 138 mmol/L 136-146 [facility] Urea nitrogen [Mass/volume] in Serum or PlasmaOrdered By: Stephane Juárez on 04-23-2022 Urea nitrogen [Mass/Vol] 11 mg/dL 9-23 [facility] Basic Metabolic Panelon Anion gap [Moles/Vol] 12.0 mmol/L Normal 6.0-15.0 [facility] Comment on above: Performed By: #### Sushil Young, BMP #### [facility] [address] [place] [id number] [place] Calcium [Mass/Vol] 8.9 mg/dL Normal 8.2-10.2 [facility] Comment on above: Performed By: #### Sushil Young, BMP #### [facility] [address] [place] [address] [place] Chloride [Moles/Vol] 96 mmol/L Normal 95-114 [facility] Comment on above: Performed By: #### Sushil Young, BMP #### [facility] [address] [place] [address] [place] CO2 [Moles/Vol] 29.6 mmol/L Normal 22.0-30.0 [facility] Comment on above: Performed By: #### Sushil Young, BMP #### [facility] [address] Creatinine [Mass/Vol] 0.71 mg/dL Normal 0.44-1.03 [facility] Comment on above: Performed By: #### Sushil Young, BMP #### [facility] [address] [place] [id number] [place] Creatinine Clr Calc Pharmacy 71.72 [facility] Comment on above: Performed By: #### Sushil Young, BMP #### [place] [address] [place] Estimated GFR ( Inessa > 60 [facility] Comment on above: Result Comment: GFR estimated reference range: According to KDOQI guidelines, <60 ml/min/1.73m2 is sufficient to diagnose a patient with chronic kidney disease. Performed By: #### Sushil Young, BMP #### [address] Estimated GFR (Non- Am > 60 [facility] Comment on above: Performed By: #### Sushil Young, BMP #### [place] [address] [place] Glucose [Mass/Vol] 108 mg/dL High 70-100 [facility] Comment on above: Result Comment: [place] Glucose Reference Range is dependent on time and content of last meal. Glucose of more than 200 mg/dL in a nonstressed, ambulatory subject supports the diagnosis of Diabetes Mellitus. ADA recommended reference range Performed By: #### Sushil Young, BMP #### [place] [address] [place] Potassium [Moles/Vol] 4.6 mmol/L Normal 3.5-5.1 [facility] Comment on above: Performed By: #### Sushil Young, BMP #### [address] Sodium [Moles/Vol] 133 mmol/L Significant change down 136-146 [facility] Comment on above: Performed By: #### Sushil Young, BMP #### [place] [address] [place] Urea nitrogen [Mass/Vol] 11 mg/dL Normal 11-10 [facility] Comment on above: Performed By: #### M G, BMP #### [address] Calcium [Mass/volume] in Ser um or PlasmaOrdered By: Stephane Juárez on 04-19-2022 Calcium [Mass/Vol] 8.9 mg/dL 8.2-10.2 [facility] Carbon dioxide, total [Moles /volume] in Serum or PlasmaOrdered By: Stephane Juárez on 04-19-2022 CO2 [Moles/Vol] 29.6 mmol/L 22.0-30.0 [facility] Chloride [Moles/volume] in S raul or PlasmaOrdered By: Stephane Juárez on 04-19-2022 Chloride [Moles/Vol] 96 mmol/L 95-114 [facility] Creatinine and Glomerular fi ltration rate.predicted panel (S/P/Bld)Ordered By: Stephane Juárez on 04-19-2022 Creatinine [Mass/Vol] 0.71 mg/dL 0.44-1.03 [facility] ECG 12 lead ECGon 04-19-2022 ECG 12 lead ECG [facility] Main [place] [address] [place] [address] Electrocardiograph Report Signed Patient: Phan Kessler MR#: [id number] : 1955 Acct:[id number] Age/Sex: 66 / F ADM Date: 04/17/22 Loc: Room: [address] [place] [address] Type: DIS INOo Attending Dr: Stephane Juárez DO Ordering Provider: Stephane Juárez DO Date of Service: 04/19/2204/12/499 ECG/ECG 12 lead ECG: abn Copies to: Test Reason : Blood Pressure : / mmHG Vent. Rate : 065 BPM Atrial Rate : 065 BPM P-R Int : 192 ms QRS Dur : 162 ms QT Int : 460 ms P-R-T Axes : 047 -22 125 degrees QTc Int : 478 ms Normal sinus rhythm Left bundle branch block Abnormal ECG When compared with ECG of 18-APR-2022 15:37, (Unconfirmed) No significant change was found Confirmed by JESSICA MADRID MD ([id number]) on 04/19/2022 9:30:45 PM Referred By: Electronically Signed By:JESSICA MADRID MD Transcribed By: MUS Signed By Jessica Madrid MD 2130 Normal [facility] Estimated glomerular filtrat ion rate (GFR) non- AmericanOrdered By: Stephane Juárez on 04-19-2022 GFR/1.73 sq M.predicted among non-blacks MDRD (S/P/Bld) [Vol rate/Area] > 60 mL/Min [facility] Glucose [Mass/volume] in Ser um or PlasmaOrdered By: Stephane Juárez on 04-19-2022 Glucose [Mass/Vol] 108 mg/dL 70-100 [facility] Comment on above: ADA recommended refe rence rangeRandom Glucose Reference Range is dependent on time and content of last meal. Glucose of more than 200 mg/dL in a nonstressed, ambulatory subject supports the diagnosis of Diabetes Mellitus. Laboratory - Chemistry and C hemistry - challengeOrdered By: Stephane Juárez on 04-19-2022 Magnesium [Mass/Vol] 2.2 mg/dL 1.6-2.6 [facility] Magnesiumon 04-19-2022 Magnesium [Mass/Vol] 2.2 mg/dL Normal 1.6-2.6 [facility] Comment on above: Result Comment: PERF ORMED BY: [place] [id number] PATHOLOGIST SOFTWARE QUALITY ENGINEER PRIYA CHERRY M.D. Performed By: #### M Hector, BMP #### [address] No Panel InformationOrdered By: Stephane Juárez on 04-19-2022 Estimated GFR () > 60 mL/Min [facility] Comment on above: GFR estimated refere nce range: According to KDOQI guidelines, <60 ml/min/1.73m2 is sufficient to diagnose a patient with chronic kidney disease. Pharmacy Creatinine Clearance (Chem 71.72 [facility] Potassium [Moles/volume] in Serum or PlasmaOrdered By: Stephane Juárez on 04-19-2022 Potassium [Moles/Vol] 4.6 mmol/L 3.5-5.1 [facility] Serum or plasma anion gap de terminationOrdered By: Stephane Juárez on 04-19-2022 Anion gap [Moles/Vol] 12.0 mmol/L 6.0-15.0 [facility] Sodium [Moles/volume] in Ser um or PlasmaOrdered By: Stephane Juárez on 04-19-2022 Sodium [Moles/Vol] 133 mmol/L 136-146 [facility] Comment on above: Delta: 125 on Urea nitrogen [Mass/volume] in Serum or PlasmaOrdered By: Stephane Juárez on 04-19-2022 Urea nitrogen [Mass/Vol] 11 mg/dL 11-10 [facility] Aldosteroneon 04-18-2022 Aldosterone 10.7 ng/dL Normal 0.0-30.0 [facility] Comment on above: Result Comment: This test was developed and its performance characteristics determined by [employer]. It has not been cleared or approved by the Food and Drug Administration. Performed at: [address] [id number] Crew Attendant: Fatemeh Ramíerz MD, Phone: [phone] PERFORMED BY: [place] [id number] PATHOLOGIST SOFTWARE QUALITY ENGINEER PRIYA CHERRY M.D. Performed By: #### U A #### [facility] [address] [place] [address] Basic Metabolic Panelon Anion gap [Moles/Vol] 14.5 mmol/L Normal 6.0-15.0 [facility] Comment on above: Performed By: #### R ENACT, ALD #### [facility] , #### BMP, MG, JB, BILTD #### [facility] [address] [place] [address] Calcium [Mass/Vol] 8.6 mg/dL Normal 8.2-10.2 [facility] Comment on above: Performed By: #### R ENACT, ALD #### [facility] , #### BMP, MG, JB, BILTD #### [facility] [address] Chloride [Moles/Vol] 86 mmol/L Low 95-114 [facility] Comment on above: Performed By: #### R ENACT, ALD #### [facility] , #### BMP, MG, JB, BILTD #### [facility] [address] [place] [address] CO2 [Moles/Vol] 27.5 mmol/L Normal 22.0-30.0 [facility] Comment on above: Performed By: #### R ENACT, ALD #### [facility] , #### BMP, MG, JB, BILTD #### [facility] [address] [place] [address] Creatinine [Mass/Vol] 0.53 mg/dL Normal 0.44-1.03 [facility] Comment on above: Performed By: #### R ENACT, ALD #### [facility] , #### BMP, MG, JB, BILTD #### [facility] [address] [place] [address] Creatinine Clr Calc Pharmacy 72.03 [facility] Comment on above: Performed By: #### R ENACT, ALD #### [facility] , #### BMP, MG, JB, BILTD #### [facility] [address] [place] [address] Estimated GFR ( Inessa > 60 [facility] Comment on above: Result Comment: GFR estimated reference range: According to KDOQI guidelines, <60 ml/min/1.73m2 is sufficient to diagnose a patient with chronic kidney disease. Performed By: #### R ENACT, ALD #### [facility] , #### BMP, MG, JB, BILTD #### [facility] [address] [place] [address] Estimated GFR (Non- Am > 60 Normal [facility] Comment on above: Performed By: #### R ENACT, ALD #### [facility] , #### BMP, MG, JB, BILTD #### [address] Glucose [Mass/Vol] 106 mg/dL High 70-100 [facility] Comment on above: Result Comment: [facility] Glucose Reference Range is dependent on time and content of last meal. Glucose of more than 200 mg/dL in a nonstressed, ambulatory subject supports the diagnosis of Diabetes Mellitus. ADA recommended reference range Performed By: #### R ENACT, ALD #### [facility] , #### BMP, MG, JB, BILTD #### [address] Potassium [Moles/Vol] 3.0 mmol/L Low 3.5-5.1 [facility] Comment on above: Performed By: #### R ENACT, ALD #### [facility] , #### BMP, MG, JB, BILTD #### [facility] [address] [place] [address] Sodium [Moles/Vol] 125 mmol/L Low 136-146 [facility] Comment on above: Performed By: #### R ENACT, ALD #### [facility] , #### BMP, MG, JB, BILTD #### [facility] [address] [place] [address] Urea nitrogen [Mass/Vol] 8 mg/dL Low 9-23 [facility] Comment on above: Performed By: #### R ENACT, ALD #### [facility] , #### BMP, MG, JB, BILTD #### [address] Anion gap [Moles/Vol] 16.7 mmol/L High 6.0-15.0 [facility] Comment on above: Performed By: #### B MP #### [address] Calcium [Mass/Vol] 8.5 mg/dL Normal 8.2-10.2 [facility] Comment on above: Performed By: #### B MP #### [address] Chloride [Moles/Vol] 84 mmol/L Low 95-114 [facility] Comment on above: Performed By: #### B MP #### [address] CO2 [Moles/Vol] 25.3 mmol/L Normal 22.0-30.0 [facility] Comment on above: Performed By: #### B MP #### [address] Creatinine [Mass/Vol] 0.64 mg/dL Normal 0.44-1.03 [facility] Comment on above: Performed By: #### B MP #### [address] Creatinine Clr Calc Pharmacy 70.81 [facility] Comment on above: Result Comment: PERF ORMED BY: [place] [id number] PATHOLOGIST SOFTWARE QUALITY ENGINEER PRIYA CHERRY M.D. Performed By: #### B MP #### [address] Estimated GFR ( Inessa > 60 [facility] Comment on above: Result Comment: GFR estimated reference range: According to KDOQI guidelines, <60 ml/min/1.73m2 is sufficient to diagnose a patient with chronic kidney disease. Performed By: #### B MP #### [address] Estimated GFR (Non- Am > 60 [facility] Comment on above: Performed By: #### B MP #### [facility] [address] Glucose [Mass/Vol] 104 mg/dL High 70-100 [facility] Comment on above: Result Comment: [facility] Glucose Reference Range is dependent on time and content of last meal. Glucose of more than 200 mg/dL in a nonstressed, ambulatory subject supports the diagnosis of Diabetes Mellitus. ADA recommended reference range Performed By: #### B MP #### [facility] [address] Potassium [Moles/Vol] 3.0 mmol/L Low 3.5-5.1 [facility] Comment on above: Performed By: #### B MP #### [address] Sodium [Moles/Vol] 123 mmol/L Off scale low 136-146 [facility] Comment on above: Performed By: #### B MP #### [address] Urea nitrogen [Mass/Vol] 9 mg/dL Normal 9-23 [facility] Comment on above: Performed By: #### B MP #### [address] Bilirubin, Total and Directo n 04-18-2022 Bilirubin [Mass/Vol] 1.5 mg/dL High 0.3-1.2 [facility] Comment on above: Result Comment: Samp les from patients who have taken Naproxen have shown spurious elevation in Total Bilirubin levels. A metabolite of Naproxen, O-desmethylnaproxen, has been shown to interfere with the Jendrnehaik-Nicole method for measuring Total Bilirubin. Performed By: #### R ENACT, ALD #### [facility] , #### BMP, MG, JB, BILTD #### [facility] [address] Bilirubin,Indirect 1.3 mg/dL Normal [facility] Comment on above: Performed By: #### R ENACT, ALD #### [facility] , #### BMP, MG, JB, BILTD #### [facility] [address] [place] [address] Bilirubin.indirect [Mass/Vol] 0.2 mg/dL Normal 0.0-0.4 [facility] Comment on above: Performed By: #### R ENACT, ALD #### [facility] , #### BMP, MG, JB, BILTD #### [facility] [address] [place] [address] Bilirubin.direct [Mass/volum e] in Serum or PlasmaOrdered By: Selma Almendarez on 04-18-2022 Bilirubin.direct [Mass/Vol] 0.2 mg/dL 0.0-0.4 [facility] Bilirubin.total [Mass/volume ] in Serum or PlasmaOrdered By: Selma Almendarez on 04-18-2022 Bilirubin [Mass/Vol] 1.5 mg/dL 0.3-1.2 [facility] Comment on above: Samples from patient s who have taken Naproxen have shown spurious elevation in Total Bilirubin levels. A metabolite of Naproxen, O-desmethylnaproxen, has been shown to interfere with the Jendrnehaik-Grof method for measuring Total Bilirubin. Cortisolon 04-18-2022 Cortisol 11.0 ug/dL Normal [facility] Comment on above: Result Comment: Refe rence range: AM 6 - 24 ug/dl PM <10 ug/dl PERFORMED BY: [place] [id number] PATHOLOGIST SOFTWARE QUALITY ENGINEER PRIYA CHERRY M.D. Performed By: #### R ENACT, ALD #### [facility] , #### BMP, MG, JB, BILTD #### [facility] [address] [place] [address] ECG 12 lead ECGon 04-18-2022 ECG 12 lead ECG [facility] Main [place] [address] [place] [address] Electrocardiograph Report Signed Patient: Phan Kessler MR#: [id number] : 1955 Acct:[id number] Age/Sex: 66 / F ADM Date: 04/17/22 Loc: 3T Room: [address] [place] [address] Type: DIS INOo Attending Dr: Stephane Juárez DO Ordering Provider: Stephane Juárez DO Date of Service: 04/18/2203/12/1517 ECG/ECG 12 lead ECG: qtc measurement Copies to: Test Reason : Blood Pressure : / mmHG Vent. Rate : 073 BPM Atrial Rate : 073 BPM P-R Int : 156 ms QRS Dur : 152 ms QT Int : 442 ms P-R-T Axes : 059 -29 119 degrees QTc Int : 486 ms Normal sinus rhythm Left bundle branch block Abnormal ECG When compared with ECG of 18-APR-2022 08:37, No significant change was found Confirmed by JESSICA MADRID MD ([id number]) on 04/19/2022 9:30:34 PM Referred By: Electronically Signed By:JESSICA MADRID MD Transcribed By: MUS Signed By Jessica Madrid MD 2130 Normal [facility] ECG 12 lead ECG [facility] Main [place] [address] [place] [address] Electrocardiograph Report Signed Patient: Phan Kessler MR#: [id number] : 1955 Acct:[id number] Age/Sex: 66 / F ADM Date: 04/17/22 Loc: Room: [address] [place] [address] Type: ADM INOo Attending Dr: Stephane Juárez DO Ordering Provider: Selma Almendarez MD Date of Service: 04/18/2203/12/499 ECG/ECG 12 lead ECG: follow up Copies to: Test Reason : Blood Pressure : / mmHG Vent. Rate : 078 BPM Atrial Rate : 078 BPM P-R Int : 168 ms QRS Dur : 172 ms QT Int : 452 ms P-R-T Axes : 051 -24 124 degrees QTc Int : 515 ms Normal sinus rhythm Left bundle branch block Abnormal ECG When compared with ECG of 17-APR-2022 21:39, No significant change was found Confirmed by JESSICA MADRID MD ([id number]) on 04/18/2022 10:34:37 AM Referred By: Electronically Signed By:JESSICA MADRID MD Transcribed By: MUS Signed By Jessica Madrid MD 1034 Normal [facility] echo transthoracicon [facility] echo transthoracic [facility] Main [place] [address] [place] [address] Echocardiogram Signed Patient: Phan Kessler MR#: [id number] : 1955 Acct:[id number] Age/Sex: 66 / F ADM Date: 04/17/22 Loc: Room: [address] [place] [address] Type: ADM INOo Attending Dr: Stephane Juárez DO Ordering Provider: Selma Almendarez MD Date of Service: 04/17/22 [facility] echo transthoracic: uncontrolled hypertension, lbbb Copies to: MD Ricky Gore MD BSA: 1.9 m2 BP: 137/83 mmHg HR: 95 Reason For Study: uncontrolled hypertension, lbbb History: HTN. HLD. Family history of CAD. Interpretation Summary Ejection Fraction = 55-60%. The left ventricular size, thickness and function are normal The left ventricular wall motion is normal. There is trace mitral regurgitation. There is trace tricuspid regurgitation. A variety of Doppler measurements indicate impaired left ventricular relaxation, which is associated with grade I/IV or mild diastolic dysfunction. There is no comparison study available. Procedure/Quality: A two-dimensional transthoracic echocardiogram with color flow, Doppler and injection of contrast agent Definity was performed. A two- dimensional transthoracic echocardiogram with color flow and Doppler was performed. Left Ventricle: The left ventricular size, thickness and function are normal. Ejection Fraction = 55-60%. A variety of Doppler measurements indicate impaired left ventricular relaxation, which is associated with grade I/IV or mild diastolic dysfunction. The left ventricular wall motion is normal. Left Atrium: The left atrium appears normal in size. Right Atrium: The right atrium appears normal in size. Right Ventricle: The right ventricular size, thickness and function are normal. Aortic Valve: The aortic valve is normal in structure and function. No aortic regurgitation is present. Mitral Valve: The mitral valve is normal in structure and function. There is trace mitral regurgitation. Tricuspid Valve: The tricuspid valve is normal in structure and function. There is trace tricuspid regurgitation. Pulmonic Valve: The pulmonic valve is normal in structure and function. Arteries: The aortic root is normal size. Pericardium/Pleura: No pericardial effusion seen. There is no pleural effusion. IVC/Hepatic Viens: The inferior vena cava is normal in size, with a normal collapsibility index. Measurements with Normals IVSd: 1.3 cm (0.7-1.1 cm)LVIDd: 3.9 cm (3.7-5.4 cm) LVPWd: 1.1 cm (0.7-1.1 cm)LVIDs: 2.5 cm (2.3-3.6 cm) LA dimension: 3.5 cm (2.3-4.0 cm)Ao root diam: 2.4 cm(2.0-3.6 cm) asc Aorta Diam: 2.7 cm(2.1-3.4cm) Doppler with Normals RVSP(TR): 31.7 mmHg (18-35mmHg) MV E max carlo: 67.7 cm/sec(0.8-1.3m/s) MV A max carlo: 89.5 cm/sec(0.0-0.0m/s) MV E/A: 0.76 (<1.5) MMode/2D Measurements Calculations RVDd: 3.3 cm FS: 37.3 % Ao root area: LVLd ap4: 7.9 cm TAPSE: 2.5 cm EDV(Teich): 4.6 cm2 EDV(MOD-sp4): RV S Carlo: 66.8 ml 62.1 ml 14.3 cm/sec ESV(Teich): LVLs ap4: 6.4 cm 21.4 ml ESV(MOD-sp4): EF(Teich): 67.9 % 20.1 ml EF(MOD-sp4): 67.6 % __ SV(MOD-sp4): LAV(MOD-sp4): LA A4 area: 13.8 cm2 42.0 ml 31.3 ml LA length (vol): 4.6 cm Doppler Measurements Calculations MV dec time: 0.17 sec E/E' lat: MV dec slope: TV max P.0 29.0 mmHg E/E' med: 388.4 cm/sec2 9.4 __ TR max carlo: 267.9 cm/sec TR max P.7 mmHg RAP systole: 3.0 mmHg Transcribed By: SCV Performed At: 04/18/22 1100 Signed By: Ricky Hart MD 04/18/22 1211 Normal [facility] Magnesiumon 04-18-2022 Magnesium [Mass/Vol] 2.0 mg/dL Normal 1.6-2.6 [facility] Comment on above: Performed By: #### R ENACT, ALD #### [facility] , #### BMP, MG, JB, BILTD #### [facility] [address] [place] [address] [place] Osmolality, Urineon 04-19-19 23 Osmolality, Urine 312 mosm Normal 250-900 [facility] Comment on above: Result Comment: PERF ORMED BY: [address] [place] [address] PATHOLOGIST SOFTWARE QUALITY ENGINEER PRIYA CHERRY M.D. Performed By: #### U A #### [facility] [address] Potassiumon 04-18-2022 Potassium [Moles/Vol] 4.5 mmol/L Significan t change down 3.5-5.1 [facility] Comment on above: Result Comment: PERF ORMED BY: [place] [id number] PATHOLOGIST SOFTWARE QUALITY ENGINEER PRIYA CHERRY M.D. Performed By: #### K #### [facility] [address] [place] [id number] [facility] Random cortisol measurementO rdered By: Selma Almendarez on 04-18-2022 Cortisol [Mass/Vol] 11.0 ug/dL [facility] Comment on above: Reference range: AM 6 - 24 ug/dl PM <10 ug/dl Renin Activityon 04-18-2022 Renin Activity 36.286 High 0.167-5.38 0 [facility] Comment on above: Result Comment: This test was developed and its performance characteristics determined by [employer]. It has not been cleared or approved by the Food and Drug Administration. Performed at: [place] [id number] Crew Attendant: Fatemeh Ramírez MD, Phone: [phone] Performed By: #### U A #### [place] [id number] [facility] Renin activityOrdered By: Shilo Almendarez on 04-18-2022 Renin (P) [Catalytic activity/Vol] 36.286 ng/mL/hr 0.167-5.38 0 [facility] Comment on above: This test was develo ped and its performance characteristicsdetermined by [employer]. It has not been cleared orapproved by the Food and Drug Administration.Performed at: [address] [id number] Director: Fatemeh Ramírez MD, Phone: [phone] Serum or plasma aldosterone measurement (mass/volume)Ordered By: Selma Almendarez on 04-18-2022 Aldosterone [Mass/Vol] 10.7 ng/dL 0.0-30.0 [facility] Comment on above: This test was develo ped and its performance characteristicsdetermined by [employer]. It has not been cleared orapproved by the Food and Drug Administration.Performed at: [address] [id number] Director: Fatemeh Ramírez MD, Phone: [phone] Serum or plasma non-glucuron idated bilirubin measurement (mass/volume)Ordered By: Selma Almendarez on 04-18-2022 Bilirubin.indirect [Mass/Vol] 1.3 mg/dL [facility] Sodium, Urineon 04-18-2022 Sodium (U) [Moles/Vol] 46.0 mmol/L Normal [facility] Comment on above: Result Comment: No r eference range established PERFORMED BY: [place] [id number] PATHOLOGIST SOFTWARE QUALITY ENGINEER PRIYA CHERRY M.D. Performed By: #### U A #### [facility] [address] [place] [address] Urinalysison 04-18-2022 Appearance (U) Clear Normal Clear [facility] Comment on above: Order Comment: Name Collection Type:: Clean-Voided Midstream Performed By: #### U A #### [address] Bilirubin,Urine Negative Normal Negative [facility] Comment on above: Order Comment: Name Collection Type:: Clean-Voided Midstream Performed By: #### U A #### [address] Color (U) Yellow Normal Yellow [facility] Comment on above: Order Comment: Name Collection Type:: Clean-Voided Midstream Performed By: #### U A #### [facility] [address] [place] [address] Glucose Ql (U) Normal Normal Normal [facility] Comment on above: Order Comment: Name Collection Type:: Clean-Voided Midstream Performed By: #### U A #### [facility] [address] [place] [address] Ketones Ql (U) 4+ High Negative [facility] Comment on above: Order Comment: Name Collection Type:: Clean-Voided Midstream Performed By: #### U A #### [facility] [address] [place] [address] Leukocyte esterase Test strip Ql (U) Negative Normal Negative [facility] Comment on above: Order Comment: Name Collection Type:: Clean-Voided Midstream Performed By: #### U A #### [facility] [address] [place] [address] [place] Nitrite,Urine Negative Normal Negative [facility] Comment on above: Order Comment: Name Collection Type:: Clean-Voided Midstream Performed By: #### U A #### [address] Occult Blood,Urine Negative Normal Negative [facility] Comment on above: Order Comment: Name Collection Type:: Clean-Voided Midstream Result Comment: PERF ORMED BY: [place] [id number] PATHOLOGIST SOFTWARE QUALITY ENGINEER PRIYA CHERRY M.D. Performed By: #### U A #### [address] pH (U) 5.5 [pH] Normal 5.0-9.0 [facility] Comment on above: Order Comment: Name Collection Type:: Clean-Voided Midstream Performed By: #### U A #### [address] Protein,Urine Negative Normal Negative [facility] Comment on above: Order Comment: Name Collection Type:: Clean-Voided Midstream Performed By: #### U A #### [address] Specificy [place],Urine 1.008 Normal 1.001-1.03 0 [facility] Comment on above: Order Comment: Name Collection Type:: Clean-Voided Midstream Performed By: #### U A #### [address] Urobilinogen,Urine Normal Normal Normal [facility] Comment on above: Order Comment: Name Collection Type:: Clean-Voided Midstream Performed By: #### U A #### [place] [address] [place] Albumin [Mass/volume] in Bod y fluidOrdered By: Jessica Chawla on 04-17-2022 Albumin (Body fld) [Mass/Vol] 4.2 g/dL 3.2-5.5 [facility] Alkaline phosphatase [Enzyma tic activity/volume] in Serum or PlasmaOrdered By: Jessica Chawla on 04-17-2022 ALP [Catalytic activity/Vol] 66 U/L 32-92 [facility] Aspartate aminotransferase [ Enzymatic activity/volume] in Serum or PlasmaOrdered By: Jessica Chawla on 04-17-2022 AST [Catalytic activity/Vol] 22 U/L 10-42 [facility] Basophils Auto (Bld) [#/Vol] Ordered By: Jessica Chawla on 04-17-2022 Basophils (Bld) [#/Vol] 0.0 10*3/uL 0.0-0.2 [facility] Basophils/100 WBC Auto (Bld) Ordered By: Jessica Chawla on 04-17-2022 Basophils/100 WBC (Bld) 0.4 % . [facility] Bilirubin Test strip Ql (U)O rdered By: Jessica Chawla on 04-17-2022 Bilirubin Ql (U) Negative Negative [facility] Bilirubin.total [Mass/volume ] in Serum or PlasmaOrdered By: Jessica Chawla on 04-17-2022 Bilirubin [Mass/Vol] 1.9 mg/dL 0.3-1.2 [facility] Comment on above: Samples from patient s who have taken Naproxen have shown spurious elevation in Total Bilirubin levels. A metabolite of Naproxen, O-desmethylnaproxen, has been shown to interfere with the Sharlene-Nicole method for measuring Total Bilirubin. Calcium [Mass/volume] in Ser um or PlasmaOrdered By: Jessica Chawla on 04-17-2022 Calcium [Mass/Vol] 9.3 mg/dL 8.2-10.2 [facility] Carbon dioxide, total [Moles /volume] in Serum or PlasmaOrdered By: Jessica Chawla on 04-17-2022 CO2 [Moles/Vol] 25.5 mmol/L 22.0-30.0 [facility] Chloride [Moles/volume] in S raul or PlasmaOrdered By: Jessica Chawla on 04-17-2022 Chloride [Moles/Vol] 80 mmol/L 95-114 [facility] Color Auto (U)Ordered By: Juli Chawla on 04-17-2022 Color (U) Yellow Yellow [facility] Complete Blood Count Auto Di ffon 04-17-2022 Basophils (Bld) [#/Vol] 0.0 10*3/uL Normal 0.0-0.2 [facility] Comment on above: Result Comment: PERF ORMED BY: [place] [id number] PATHOLOGIST SOFTWARE QUALITY ENGINEER PRIYA CHERRY M.D. Performed By: #### C MP #### [address] Basophils/100 WBC (Bld) 0.4 % Normal . [facility] Comment on above: Performed By: #### C MP #### [address] Eosinophils (Bld) [#/Vol] 0.0 10*3/uL Normal 0.0-0.45 [facility] Comment on above: Performed By: #### C MP #### [address] Eosinophils/100 WBC (Bld) 0.4 % Normal . [facility] Comment on above: Performed By: #### C MP #### [address] Erythrocyte distribution width (RBC) [Ratio] 12.2 % Normal 11.9-15.3 [facility] Comment on above: Performed By: #### C MP #### [address] Hematocrit (Bld) [Volume fraction] 45.0 % Normal 34.0-46.4 [facility] Comment on above: Performed By: #### C MP #### [address] Hemoglobin (Bld) [Mass/Vol] 15.2 g/dL Normal 11.8-15.4 [facility] Comment on above: Performed By: #### C MP #### [address] Lymphocytes (Bld) [#/Vol] 1.4 10*3/uL Normal 1.00-4.8 [facility] Comment on above: Performed By: #### C MP #### [address] Lymphocytes/100 WBC (Bld) 18.4 % Normal . [facility] Comment on above: Performed By: #### C MP #### [address] MCH (RBC) [Entitic mass] 30.9 pg Normal 24.7-34.3 [facility] Comment on above: Performed By: #### C MP #### [address] MCV (RBC) [Entitic vol] 91.6 fL Normal 80-100 [facility] Comment on above: Performed By: #### C MP #### [address] Mean Corpuscular HGB Conc 33.8 g/dL Normal 32.0-35.0 [facility] Comment on above: Performed By: #### C MP #### [address] Monocytes (Bld) [#/Vol] 0.8 10*3/uL Normal 0.0-0.8 [facility] Comment on above: Performed By: #### C MP #### [address] Monocytes/100 WBC (Bld) 20.03 % High 0.00-20.00 [facility] Comment on above: Result Comment: For adults in ED, MDW > 20.0 may be associated with a higher risk of sepsis during the first 12 hrs of hospital admission Performed By: #### C MP #### [place] [address] [place] Monocytes/100 WBC (Bld) 10.8 % Normal . [facility] Comment on above: Performed By: #### C MP #### [address] Neutrophils (Bld) [#/Vol] 5.3 10*3/uL Normal 1.8-7.7 [facility] Comment on above: Performed By: #### C MP #### [address] Neutrophils/100 WBC (Bld) 70.0 % Normal . [facility] Comment on above: Performed By: #### C MP #### [address] NRBC% 0.1 /100{WBC} Normal 0-0.5 [facility] Comment on above: Performed By: #### C MP #### [address] Platelet mean volume (Bld) [Entitic vol] 8.2 fL Normal 6.3-10.7 [facility] Comment on above: Performed By: #### C MP #### [address] Platelets (Bld) [#/Vol] 242 10*3/uL Normal 150-450 [facility] Comment on above: Performed By: #### C MP #### [address] RBC (Bld) [#/Vol] 4.91 10*6/uL Normal 3.60-5.00 [facility] Comment on above: Performed By: #### C MP #### [address] WBC (Bld) [#/Vol] 7.5 10*3/uL Normal 3.8-11.6 [facility] Comment on above: Performed By: #### C MP #### [address] Comprehensive Metabolic Pane nettie 04-17-2022 Albumin [Mass/Vol] 4.2 g/dL Normal 3.2-5.5 [facility] Comment on above: Performed By: #### C MP #### [address] Albumin/Globulin [Mass ratio] 1.4 {ratio} Normal [facility] Comment on above: Performed By: #### C MP #### [address] ALP [Catalytic activity/Vol] 66 U/L Normal 32-92 [facility] Comment on above: Performed By: #### C MP #### [address] ALT [Catalytic activity/Vol] 29 U/L Normal 10-60 [facility] Comment on above: Performed By: #### C MP #### [address] Anion gap [Moles/Vol] 20.8 mmol/L High 6.0-15.0 [facility] Comment on above: Performed By: #### C MP #### [address] AST [Catalytic activity/Vol] 22 U/L Normal 10-42 [facility] Comment on above: Performed By: #### C MP #### [address] Bilirubin [Mass/Vol] 1.9 mg/dL High 0.3-1.2 [facility] Comment on above: Result Comment: Samp les from patients who have taken Naproxen have shown spurious elevation in Total Bilirubin levels. A metabolite of Naproxen, O-desmethylnaproxen, has been shown to interfere with the Jendrassik-Grof method for measuring Total Bilirubin. Performed By: #### C MP #### [address] Calcium [Mass/Vol] 9.3 mg/dL Normal 8.2-10.2 [facility] Comment on above: Performed By: #### C MP #### [place] [address] [place] Chloride [Moles/Vol] 80 mmol/L Low 95-114 [facility] Comment on above: Performed By: #### C MP #### [address] CO2 [Moles/Vol] 25.5 mmol/L Normal 22.0-30.0 [facility] Comment on above: Performed By: #### C MP #### [facility] [address] Creatinine [Mass/Vol] 0.64 mg/dL Normal 0.44-1.03 [facility] Comment on above: Performed By: #### C MP #### [facility] [address] Creatinine Clr Calc Pharmacy 70.81 [facility] Comment on above: Result Comment: PERF ORMED BY: [place] [id number] PATHOLOGIST SOFTWARE QUALITY ENGINEER PRIYA CHERRY M.D. Performed By: #### C MP #### [address] Estimated GFR ( Inessa > 60 [facility] Comment on above: Result Comment: GFR estimated reference range: According to KDOQI guidelines, <60 ml/min/1.73m2 is sufficient to diagnose a patient with chronic kidney disease. Performed By: #### C MP #### [address] Estimated GFR (Non- Am > 60 [facility] Comment on above: Performed By: #### C MP #### [address] Globulin (S) [Mass/Vol] 3.0 g/dL [facility] Comment on above: Performed By: #### C MP #### [address] Glucose [Mass/Vol] 107 mg/dL High 70-100 [facility] Comment on above: Result Comment: [place] om Glucose Reference Range is dependent on time and content of last meal. Glucose of more than 200 mg/dL in a nonstressed, ambulatory subject supports the diagnosis of Diabetes Mellitus. ADA recommended reference range Performed By: #### C MP #### [address] Potassium [Moles/Vol] 3.3 mmol/L Low 3.5-5.1 [facility] Comment on above: Performed By: #### C MP #### [facility] [address] [place] [address] [place] Protein [Mass/Vol] 7.2 g/dL Normal 6.1-7.9 [facility] Comment on above: Performed By: #### C MP #### [facility] [address] [place] [address] [place] Sodium [Moles/Vol] 123 mmol/L Off scale low 136-146 [facility] Comment on above: Result Comment: Critical value result called at 2155 on 04/17/22 Performed By: #### C MP #### [facility] [address] Urea nitrogen [Mass/Vol] 11 mg/dL Normal - [facility] Comment on above: Performed By: #### C MP #### [address] Creatinine and Glomerular fi ltration rate.predicted panel (S/P/Bld)Ordered By: Jessica Chawla on 04-17-2022 Creatinine [Mass/Vol] 0.64 mg/dL 0.44-1.03 [facility] ECG 12 lead ECGon 04-17-2022 ECG 12 lead ECG [facility] [place] [address] [place] [address] Electrocardiograph Report Signed Patient: Phan Kessler MR#: [id number] : 1955 Acct:[id number] Age/Sex: 66 / F ADM Date: 04/17/22 Loc: Room: [address] [place] [address] Type: ADM INOo Attending Dr: Stephane Juárez DO Ordering Provider: Jessica Chawla Jr, MD Date of Service: 04/17/22 ECG/ECG 12 lead ECG: Recheck/Abnormal Lab/Rx Copies to: Test Reason : Blood Pressure : / mmHG Vent. Rate : 074 BPM Atrial Rate : 074 BPM P-R Int : 176 ms QRS Dur : 174 ms QT Int : 464 ms P-R-T Axes : 052 -09 105 degrees QTc Int : 515 ms Normal sinus rhythm Left bundle branch block Abnormal ECG When compared with ECG of 10-APR-2022 21:15, ST more depressed in Lateral leads Confirmed by JESSICA CHAWLA MD ([id number]) on 04/17/2022 10:59:42 PM Referred By: Electronically Signed By:JESSICA CHAWLA MD Transcribed By: MUS Signed By Jessica Chawla Jr, MD [id number] Normal [facility] Eosinophils Auto (Bld) [#/Vo l]Ordered By: Jessica Chawla on 04-17-2022 Eosinophils (Bld) [#/Vol] 0.0 10*3/uL 0.0-0.45 [facility] Eosinophils/100 WBC Auto (Bl d)Ordered By: Jessica Chawla on 04-17-2022 Eosinophils/100 WBC (Bld) 0.4 % . [facility] Erythrocyte distribution wid th Auto (RBC) [Ratio]Ordered By: Jessica Chawla on 04-17-2022 Erythrocyte distribution width (RBC) [Ratio] 12.2 % 11.9-15.3 [facility] Estimated glomerular filtrat ion rate (GFR) non- AmericanOrdered By: Jessica Chawla on 04-17-2022 GFR/1.73 sq M.predicted among non-blacks MDRD (S/P/Bld) [Vol rate/Area] > 60 mL/Min [facility] Globulin Calc (S) [Mass/Vol] Ordered By: Jessica Chawla on 04-17-2022 Globulin (S) [Mass/Vol] 3.0 g/dL [facility] Glucose [Mass/volume] in Ser um or PlasmaOrdered By: Jessica Chawla on 04-17-2022 Glucose [Mass/Vol] 107 mg/dL 70-100 [facility] Comment on above: ADA recommended refe rence rangeRandom Glucose Reference Range is dependent on time and content of last meal. Glucose of more than 200 mg/dL in a nonstressed, ambulatory subject supports the diagnosis of Diabetes Mellitus. Hematocrit Auto (Bld) [Volum e fraction]Ordered By: Jessica Chawla on 04-17-2022 Hematocrit (Bld) [Volume fraction] 45.0 % 34.0-46.4 [facility] Hemoglobin [Mass/volume] in BloodOrdered By: Jessica Chawla on 04-17-2022 Hemoglobin (Bld) [Mass/Vol] 15.2 g/dL 11.8-15.4 [facility] Ketones Auto test strip (U) [Mass/Vol]Ordered By: Jessica Chawla on 04-17-2022 Ketones (U) [Mass/Vol] 4+ Negative [facility] Leukocytes [#/volume] correc arcelia for nucleated erythrocytes in Blood by Automated counOrdered By: Jessica Chawla on 04-17-2022 WBC corrected for nucl RBC Auto (Bld) [#/Vol] 7.5 10*3/uL 3.8-11.6 [facility] Lymphocytes Auto (Bld) [#/Vo l]Ordered By: Jessica Chawla on 04-17-2022 Lymphocytes (Bld) [#/Vol] 1.4 10*3/uL 1.00-4.8 [facility] Lymphocytes/100 WBC Auto (Bl d)Ordered By: Jessica Chawla on 04-17-2022 Lymphocytes/100 WBC (Bld) 18.4 % . [facility] MCH Auto (RBC) [Entitic mass ]Ordered By: Jessica Chawla on 04-17-2022 MCH (RBC) [Entitic mass] 30.9 pg 24.7-34.3 [facility] MCHC Auto (RBC) [Mass/Vol]Or dered By: Jessica Chawla on 04-17-2022 MCHC (RBC) [Mass/Vol] 33.8 g/dL 32.0-35.0 [facility] MCV Auto (RBC) [Entitic vol] Ordered By: Jessica Chawla on 04-17-2022 MCV (RBC) [Entitic vol] 91.6 fL 80-100 [facility] Monocyte distribution width [Entitic volume] in Blood by AutomatedOrdered By: Jessica Chawla on 04-17-2022 Monocyte distribution width Auto (Bld) [Entitic vol] 20.03 % 0.00-20.00 [facility] Comment on above: For adults in ED, MD W > 20.0 may be associated with a higher risk of sepsis during the first 12 hrs of hospital admission Monocytes Auto (Bld) [#/Vol] Ordered By: Jessica Chawla on 04-17-2022 Monocytes (Bld) [#/Vol] 0.8 10*3/uL 0.0-0.8 [facility] Monocytes/100 WBC Auto (Bld) Ordered By: Jessica Chawla on 04-17-2022 Monocytes/100 WBC (Bld) 10.8 % . [facility] Neutrophils Auto (Bld) [#/Vo l]Ordered By: Jessica Chawla on 04-17-2022 Neutrophils (Bld) [#/Vol] 5.3 10*3/uL 1.8-7.7 [facility] Neutrophils/100 WBC Auto (Bl d)Ordered By: Jessica Chawla on 04-17-2022 Neutrophils/100 WBC (Bld) 70.0 % . [facility] Nitrite Test strip Ql (U)Ord ered By: Jessica Chawla on 04-17-2022 Nitrite Ql (U) Negative Negative [facility] No Panel InformationOrdered By: Selma Almendarez on 04-17-2022 Urine Osmolality 312 mosm 250-900 [facility] No Panel InformationOrdered By: Jessica Chawla on 04-17-2022 Estimated GFR () > 60 mL/Min [facility] Comment on above: GFR estimated refere nce range: According to KDOQI guidelines, <60 ml/min/1.73m2 is sufficient to diagnose a patient with chronic kidney disease. Pharmacy Creatinine Clearance (Chem 70.81 [facility] Nucleated erythrocytes [Pres ence] in Blood by Automated countOrdered By: Jessica Chawla on 04-17-2022 Nucleated RBC Auto Ql (Bld) 0.1 /100{WBC} 0-0.5 [facility] Platelet mean volume Auto (B ld) [Entitic vol]Ordered By: Jessica Chawla on 04-17-2022 Platelet mean volume (Bld) [Entitic vol] 8.2 fL 6.3-10.7 [facility] Platelets Auto (Bld) [#/Vol] Ordered By: Jessica Chawla on 04-17-2022 Platelets (Bld) [#/Vol] 242 10*3/uL 150-450 [facility] Potassium [Moles/volume] in Serum or PlasmaOrdered By: Jessica Chawla on 04-17-2022 Potassium [Moles/Vol] 3.3 mmol/L 3.5-5.1 [facility] Protein Auto test strip (U) [Mass/Vol]Ordered By: Jessica Chawla on 04-17-2022 Protein (U) [Mass/Vol] Negative Negative [facility] Protein [Mass/volume] in Ser um or PlasmaOrdered By: Jessica Chawla on 04-17-2022 Protein [Mass/Vol] 7.2 g/dL 6.1-7.9 [facility] RBC Auto (Bld) [#/Vol]Ordere d By: Jessica Chawla on 04-17-2022 RBC (Bld) [#/Vol] 4.91 10*6/uL 3.60-5.00 [facility] Serum or plasma alanine sherman otransferase measurement without P-5'-P (enzymatic activiOrdered By: Jessica Chawla on 04-17-2022 ALT No additional P-5'-P [Catalytic activity/Vol] 29 U/L 10-60 [facility] Serum or plasma albumin/glob ulin mass ratioOrdered By: Jessica Chawla on 04-17-2022 Albumin/Globulin [Mass ratio] 1.4 {ratio} [facility] Serum or plasma anion gap de terminationOrdered By: Jessica Chawla on 04-17-2022 Anion gap [Moles/Vol] 20.8 mmol/L 6.0-15.0 [facility] Sodium [Moles/volume] in Ser um or PlasmaOrdered By: Jessica Chawla on 04-17-2022 Sodium [Moles/Vol] 123 mmol/L 136-146 [facility] Comment on above: Critical valueresult calledat 2154 on 04/17/22 Sodium [Moles/volume] in Uri neOrdered By: Selma Almendarez on 04-17-2022 Sodium (U) [Moles/Vol] 46.0 mmol/L [facility] Comment on above: No reference range e stablished Specific gravity Auto test s trip (U) [Rel density]Ordered By: Jessica Chawla on 04-17-2022 Specific gravity (U) [Rel density] 1.008 1.001-1.03 0 [facility] Troponin I High Sensitivityo n 04-17-2022 Troponin I High Sensitivity 8 pg/mL Normal 0-15 [facility] Comment on above: Result Comment: PERF ORMED BY: [place] [id number] PATHOLOGIST SOFTWARE QUALITY ENGINEER PRIYA CHERRY M.D. Performed By: #### C MP #### [address] Troponin I.cardiac [Mass/vol ume] in Serum or Plasma by High sensitivity methodOrdered By: Jessica Chawla on 04-17-2022 Troponin I.cardiac High sensitivity method [Mass/Vol] 8 pg/mL 0-15 [facility] Urea nitrogen [Mass/volume] in Serum or PlasmaOrdered By: Jessica Chawla on 04-17-2022 Urea nitrogen [Mass/Vol] 11 mg/dL 11-10 [facility] Urine clarity by refractomet ry automatedOrdered By: Jessica Chawla on 04-17-2022 Clarity Refractometry automated (U) Clear Clear [facility] Urine glucose measurement by automated test strip (mass/volume)Ordered By: Jessica Chawla on 04-17-2022 Glucose Auto test strip (U) [Mass/Vol] Normal mg/dL Normal [facility] Urine hemoglobin detection b y automated test stripOrdered By: Jessica Chawla on 04-17-2022 Hemoglobin Auto test strip Ql (U) Negative Negative [facility] Urine leukocyte esterase det ection by automated test stripOrdered By: Jessica Chawla on 04-17-2022 Leukocyte esterase Auto test strip Ql (U) Negative Negative [facility] Urobilinogen Auto test strip (U) [Mass/Vol]Ordered By: Jessica Chawla on 04-17-2022 Urobilinogen (U) [Mass/Vol] Normal mg/dL Normal [facility] WBC Auto (Bld) [#/Vol]Ordere d By: Jessica Chawla on 04-17-2022 WBC (Bld) [#/Vol] 7.5 10*3/uL 3.8-11.6 [facility] pH Auto test strip (U)Ordere d By: Jessica Chawla on 04-17-2022 pH (U) 5.5 [pH] 5.0-9.0 [facility] ECG 12 lead ECGon 02-21-2023 ECG 12 lead ECG [facility] [place] [address] [place] [address] Electrocardiograph Report Signed Patient: Phan Kessler MR#: [id number] : 1955 Acct:[id number] Age/Sex: 66 / F ADM Date: 04/10/22 Loc: ER Room: Type: [facility] ER Attending Dr: Ordering Provider: Sylvie Merritt MD Date of Service: 04/10/22 ECG/ECG 12 lead ECG: Recheck/Abnormal Lab/Rx Copies to: Test Reason : Blood Pressure : 196/083 mmHG Vent. Rate : 079 BPM Atrial Rate : 079 BPM P-R Int : 156 ms QRS Dur : 156 ms QT Int : 428 ms P-R-T Axes : 057 -39 090 degrees QTc Int : 490 ms Normal sinus rhythm Left axis deviation Left bundle branch block Abnormal ECG No previous ECGs available Confirmed by SYLVIE MERRITT MD ([id number] on 04/11/2022 12:16:56 AM Referred By: Electronically Signed By:SYLVIE MERRITT MD Transcribed By: MUS Signed By Sylvie Merritt MD 04/11/22 0016 Normal [facility] A1C HEMOGLOBINon 04-09-2022 HbA1c (Bld) [Mass fraction] 6.4 % [employer] Other HbA1c (Bld) [Mass fraction]o n 04-09-2022 A1C HEMOGLOBIN [facility] [employer] Other Albumin [Mass/volume] in Ser um or PlasmaOrdered By: Becky Holder on 04-07-2022 Albumin [Mass/Vol] 4.0 g/dL 3.2-5.5 [facility] Basophils Auto (Bld) [#/Vol] Ordered By: Becky Holder on 04-07-2022 Basophils (Bld) [#/Vol] 0.0 10*3/uL 0.0-0.2 [facility] Basophils/100 WBC Auto (Bld) Ordered By: Becky Holder on 04-07-2022 Basophils/100 WBC (Bld) 0.7 % . [facility] Cholesterol [Mass/volume] in Serum or PlasmaOrdered By: Becky Holder on 04-07-2022 Cholesterol [Mass/Vol] 174 mg/dL 140-200 [facility] Comment on above: Chol less than 200 m g/dl low riskChol 201-239 mg/dl borderline riskChol 240 mg/dl and greater high risk Cholesterol in LDL Calc [Mas s/Vol]Ordered By: Becky Holder on 04-07-2022 Cholesterol in LDL [Mass/Vol] 104 mg/dL 0-100 [facility] Comment on above: LDL ATP III CLASSIFI CATIONLDL less than 100 mg/dL OptimalLDL 100-129 mg/dL Near or above optimalLDL 130-159 mg/dL Borderline highLDL 160-189 mg/dL HighLDL greater than 189 mg/dL Very high Cholesterol in VLDL Calc [Ma ss/Vol]Ordered By: Becky Holder on 04-07-2022 Cholesterol in VLDL [Mass/Vol] 28 mg/dL [facility] Complete Blood Count Auto Di ffon 04-07-2022 Basophils (Bld) [#/Vol] 0.477064021 10*3/uL Normal 0.0-0.2 10*3/uL [employer] Other Basophils/100 WBC (Bld) 0.700 % . % [employer] Other Eosinophils (Bld) [#/Vol] 0.875264424 10*3/uL Normal 0.0-0.45 10*3/uL [employer] Other Eosinophils/100 WBC (Bld) 1.500 % . % [employer] Other Erythrocyte distribution width (RBC) [Ratio] 12.800 % Normal 11.9-15.3 % [employer] Other Hematocrit (Bld) [Volume fraction] 44.700 % Normal 34.0-46.4 % [employer] Other Hemoglobin (Bld) [Mass/Vol] 14.366018 g/dL Normal 11.8-15.4 g/dL [employer] Other Lymphocytes (Bld) [#/Vol] 1.247941118 10*3/uL Normal 1.00-4.8 10*3/uL [employer] Other Lymphocytes/100 WBC (Bld) 24.300 % . % [employer] Other MCH (RBC) [Entitic mass] 31.2000 pg Normal 24.7-34.3 pg [employer] Other MCV (RBC) [Entitic vol] 94.3000 fL Normal 80-100 fL [employer] Other Monocytes (Bld) [#/Vol] 0.556314285 10*3/uL Normal 0.0-0.8 10*3/uL [employer] Other Monocytes/100 WBC (Bld) 8.600 % . % [employer] Other Neutrophils (Bld) [#/Vol] 4.136982202 10*3/uL Normal 1.8-7.7 10*3/uL [employer] Other Neutrophils/100 WBC (Bld) 64.900 % . % [employer] Other Platelet mean volume (Bld) [Entitic vol] 8.2000 fL Normal 6.3-10.7 fL [employer] Other WBC (Bld) [#/Vol] 7.572777060 10*3/uL Normal 3.8 -11.6 10*3/uL [employer] Other Complete Blood Count Auto Diff 7.0 10*3/uL Normal 3.8-11.6 10*3/uL [employer] Other Complete Blood Count Auto Diff 33.0 g/dL Normal 32.0-35.0 g/dL [employer] Other Complete Blood Count Auto Diff 0.1 /100{WBC} Normal 0-0.5 /100{WBC} [employer] Other Basophils (Bld) [#/Vol] 0.0 10*3/uL Normal 0.0-0.2 [facility] Comment on above: Order Comment: PT NO T FASTING Reason for Exam Essential (primary) hypertension;Acute hyponatremia;Hypokale Result Comment: PERF ORMED BY: [place] [id number] PATHOLOGIST SOFTWARE QUALITY ENGINEER PRIYA CHERRY M.D. Performed By: #### C MP #### [address] Basophils/100 WBC (Bld) 0.7 % Normal . [facility] Comment on above: Order Comment: PT NO T FASTING Reason for Exam Essential (primary) hypertension;Acute hyponatremia;Hypokale Performed By: #### C MP #### [address] Eosinophils (Bld) [#/Vol] 0.1 10*3/uL Normal 0.0-0.45 [facility] Comment on above: Order Comment: PT NO T FASTING Reason for Exam Essential (primary) hypertension;Acute hyponatremia;Hypokale Performed By: #### C MP #### [address] Eosinophils/100 WBC (Bld) 1.5 % Normal . [facility] Comment on above: Order Comment: PT NO T FASTING Reason for Exam Essential (primary) hypertension;Acute hyponatremia;Hypokale Performed By: #### C MP #### [address] Erythrocyte distribution width (RBC) [Ratio] 12.8 % Normal 11.9-15.3 [facility] Comment on above: Order Comment: PT NO T FASTING Reason for Exam Essential (primary) hypertension;Acute hyponatremia;Hypokale Performed By: #### C MP #### [address] Hematocrit (Bld) [Volume fraction] 44.7 % Normal 34.0-46.4 [facility] Comment on above: Order Comment: PT NO T FASTING Reason for Exam Essential (primary) hypertension;Acute hyponatremia;Hypokale Performed By: #### C MP #### [address] Hemoglobin (Bld) [Mass/Vol] 14.8 g/dL Normal 11.8-15.4 [facility] Comment on above: Order Comment: PT NO T FASTING Reason for Exam Essential (primary) hypertension;Acute hyponatremia;Hypokale Performed By: #### C MP #### [address] Lymphocytes (Bld) [#/Vol] 1.7 10*3/uL Normal 1.00-4.8 [facility] Comment on above: Order Comment: PT NO T FASTING Reason for Exam Essential (primary) hypertension;Acute hyponatremia;Hypokale Performed By: #### C MP #### [address] Lymphocytes/100 WBC (Bld) 24.3 % Normal . [facility] Comment on above: Order Comment: PT NO T FASTING Reason for Exam Essential (primary) hypertension;Acute hyponatremia;Hypokale Performed By: #### C MP #### [address] MCH (RBC) [Entitic mass] 31.2 pg Normal 24.7-34.3 [facility] Comment on above: Order Comment: PT NO T FASTING Reason for Exam Essential (primary) hypertension;Acute hyponatremia;Hypokale Performed By: #### C MP #### [address] MCV (RBC) [Entitic vol] 94.3 fL Normal 80-100 [facility] Comment on above: Order Comment: PT NO T FASTING Reason for Exam Essential (primary) hypertension;Acute hyponatremia;Hypokale Performed By: #### C MP #### [address] Mean Corpuscular HGB Conc 33.0 g/dL Normal 32.0-35.0 [facility] Comment on above: Order Comment: PT NO T FASTING Reason for Exam Essential (primary) hypertension;Acute hyponatremia;Hypokale Performed By: #### C MP #### [facility] [address] Monocytes (Bld) [#/Vol] 0.6 10*3/uL Normal 0.0-0.8 [facility] Comment on above: Order Comment: PT NO T FASTING Reason for Exam Essential (primary) hypertension;Acute hyponatremia;Hypokale Performed By: #### C MP #### [facility] [address] Monocytes/100 WBC (Bld) 8.6 % Normal . [facility] Comment on above: Order Comment: PT NO T FASTING Reason for Exam Essential (primary) hypertension;Acute hyponatremia;Hypokale Performed By: #### C MP #### [address] Neutrophils (Bld) [#/Vol] 4.5 10*3/uL Normal 1.8-7.7 [facility] Comment on above: Order Comment: PT NO T FASTING Reason for Exam Essential (primary) hypertension;Acute hyponatremia;Hypokale Performed By: #### C MP #### [address] Neutrophils/100 WBC (Bld) 64.9 % Normal . [facility] Comment on above: Order Comment: PT NO T FASTING Reason for Exam Essential (primary) hypertension;Acute hyponatremia;Hypokale Performed By: #### C MP #### [place] [address] [place] NRBC% 0.1 /100{WBC} Normal 0-0.5 [facility] Comment on above: Order Comment: PT NO T FASTING Reason for Exam Essential (primary) hypertension;Acute hyponatremia;Hypokale Performed By: #### C MP #### [address] Platelet mean volume (Bld) [Entitic vol] 8.2 fL Normal 6.3-10.7 [facility] Comment on above: Order Comment: PT NO T FASTING Reason for Exam Essential (primary) hypertension;Acute hyponatremia;Hypokale Performed By: #### C MP #### [facility] [address] Platelets (Bld) [#/Vol] 253 10*3/uL Normal 150-450 [facility] Comment on above: Order Comment: PT NO T FASTING Reason for Exam Essential (primary) hypertension;Acute hyponatremia;Hypokale Performed By: #### C MP #### [facility] [address] RBC (Bld) [#/Vol] 4.74 10*6/uL Normal 3.60-5.00 [facility] Comment on above: Order Comment: PT NO T FASTING Reason for Exam Essential (primary) hypertension;Acute hyponatremia;Hypokale Performed By: #### C MP #### [facility] [address] WBC (Bld) [#/Vol] 7.0 10*3/uL Normal 3.8-11.6 [facility] Comment on above: Order Comment: PT NO T FASTING Reason for Exam Essential (primary) hypertension;Acute hyponatremia;Hypokale Performed By: #### C MP #### [address] Comprehensive Metabolic Pane [facility] 04-07-2022 Albumin [Mass/Vol] 4.580316 g/dL Normal 3.2-5.5 g/dL [employer] Other Bilirubin [Mass/Vol] 1.3421099 mg/dL High 0.3- 1.2 mg/dL [employer] Other Calcium [Mass/Vol] 9.8984207 mg/dL Normal 8.2-10 .2 mg/dL [employer] Other CO2 [Moles/Vol] 30.91290124 mmol/L High 22.0-3 0.0 mmol/L [employer] Other Creatinine [Mass/Vol] 0.22543919 mg/dL Normal 0. 44-1.03 mg/dL [employer] Other Potassium [Moles/Vol] 4.19839615 mmol/L Normal 3 .5-5.1 mmol/L [employer] [facility] [employer] Other Protein [Mass/Vol] 6.886731 g/dL Normal 6.1-7.9 g/dL [employer] Other Comprehensive Metabolic Panel > 60 [employer] [facility] [employer] Other Comprehensive Metabolic Panel 2.8 g/dL [employer] [facility] [employer] Other Albumin [Mass/Vol] 4.0 g/dL Normal 3.2-5.5 [facility] Comment on above: Order Comment: PT NO T FASTING Reason for Exam Essential (primary) hypertension;Acute hyponatremia;Hypokale Performed By: #### C MP #### [address] Albumin/Globulin [Mass ratio] 1.4 {ratio} Normal [facility] Comment on above: Order Comment: PT NO T FASTING Reason for Exam Essential (primary) hypertension;Acute hyponatremia;Hypokale Performed By: #### C MP #### [facility] [address] [place] [id number] [facility] ALP [Catalytic activity/Vol] 76 U/L Normal 32-92 [facility] Comment on above: Order Comment: PT NO T FASTING Reason for Exam Essential (primary) hypertension;Acute hyponatremia;Hypokale Performed By: #### C MP #### [facility] [address] [place] [id number] [place] ALT [Catalytic activity/Vol] 55 U/L Normal 10-60 [facility] [employer] Other Comment on above: Order Comment: PT NO T FASTING Reason for Exam Essential (primary) hypertension;Acute hyponatremia;Hypokale Performed By: #### C MP #### [place] [id number] [facility] Anion gap [Moles/Vol] 12.7 mmol/L Normal 6.0-15.0 [facility] Comment on above: Order Comment: PT NO T FASTING Reason for Exam Essential (primary) hypertension;Acute hyponatremia;Hypokale Performed By: #### C MP #### [facility] [address] [place] [id number] [facility] AST [Catalytic activity/Vol] 23 U/L Normal 10-42 [facility] Comment on above: Order Comment: PT NO T FASTING Reason for Exam Essential (primary) hypertension;Acute hyponatremia;Hypokale Performed By: #### C MP #### [facility] [address] Bilirubin [Mass/Vol] 1.5 mg/dL High 0.3-1.2 [facility] Comment on above: Order Comment: PT NO T FASTING Reason for Exam Essential (primary) hypertension;Acute hyponatremia;Hypokale Result Comment: Samp les from patients who have taken Naproxen have shown spurious elevation in Total Bilirubin levels. A metabolite of Naproxen, O-desmethylnaproxen, has been shown to interfere with the Jendrassik-Grof method for measuring Total Bilirubin. Performed By: #### C MP #### [address] Calcium [Mass/Vol] 9.8 mg/dL Normal 8.2-10.2 [facility] Comment on above: Order Comment: PT NO T FASTING Reason for Exam Essential (primary) hypertension;Acute hyponatremia;Hypokale Performed By: #### C MP #### [address] Chloride [Moles/Vol] 101 mmol/L Normal 95-114 [facility] Comment on above: Order Comment: PT NO T FASTING Reason for Exam Essential (primary) hypertension;Acute hyponatremia;Hypokale Performed By: #### C MP #### [facility] [address] [place] [id number] [place] CO2 [Moles/Vol] 30.7 mmol/L High 22.0-30.0 [facility] Comment on above: Order Comment: PT NO T FASTING Reason for Exam Essential (primary) hypertension;Acute hyponatremia;Hypokale Performed By: #### C MP #### [address] Creatinine [Mass/Vol] 0.67 mg/dL Normal 0.44-1.03 [facility] Comment on above: Order Comment: PT NO T FASTING Reason for Exam Essential (primary) hypertension;Acute hyponatremia;Hypokale Performed By: #### C MP #### [facility] [address] [place] [address] [place] Estimated GFR ( [place] > 60 [facility] Comment on above: Order Comment: PT NO T FASTING Reason for Exam Essential (primary) hypertension;Acute hyponatremia;Hypokale Result Comment: GFR estimated reference range: According to KDOQI guidelines, <60 ml/min/1.73m2 is sufficient to diagnose a patient with chronic kidney disease. Performed By: #### C MP #### [address] Estimated GFR (Non- Am > 60 [facility] Comment on above: Order Comment: PT NO T FASTING Reason for Exam Essential (primary) hypertension;Acute hyponatremia;Hypokale Performed By: #### C MP #### [address] Globulin (S) [Mass/Vol] 2.8 g/dL [facility] Comment on above: Order Comment: PT NO T FASTING Reason for Exam Essential (primary) hypertension;Acute hyponatremia;Hypokale Performed By: #### C MP #### [address] Glucose [Mass/Vol] 116 mg/dL High 70-100 [facility] Comment on above: Order Comment: PT NO T FASTING Reason for Exam Essential (primary) hypertension;Acute hyponatremia;Hypokale Result Comment: [place] Glucose Reference Range is dependent on time and content of last meal. Glucose of more than 200 mg/dL in a nonstressed, ambulatory subject supports the diagnosis of Diabetes Mellitus. ADA recommended reference range Performed By: #### C MP #### [address] Potassium [Moles/Vol] 4.4 mmol/L Normal 3.5-5.1 [facility] Comment on above: Order Comment: PT NO T FASTING Reason for Exam Essential (primary) hypertension;Acute hyponatremia;Hypokale Performed By: #### C MP #### [facility] [address] [place] [address] [place] Protein [Mass/Vol] 6.8 g/dL Normal 6.1-7.9 [facility] Comment on above: Order Comment: PT NO T FASTING Reason for Exam Essential (primary) hypertension;Acute hyponatremia;Hypokale Performed By: #### C MP #### [facility] [address] Sodium [Moles/Vol] 140 mmol/L Normal 136-146 [facility] Comment on above: Order Comment: PT NO T FASTING Reason for Exam Essential (primary) hypertension;Acute hyponatremia;Hypokale Performed By: #### C MP #### [facility] [address] Urea nitrogen [Mass/Vol] 12 mg/dL Normal 9-23 [facility] Comment on above: Order Comment: PT NO T FASTING Reason for Exam Essential (primary) hypertension;Acute hyponatremia;Hypokale Performed By: #### C MP #### [facility] [address] Creatinine [Mass/volume] in UrineOrdered By: Becky Holder on 04-07-2022 Creatinine (U) [Mass/Vol] 234.8 mg/dL [facility] Comment on above: No reference range e stablished Creatinine and Glomerular fi ltration rate.predicted panel (S/P/Bld)Ordered By: Becky Holder on 04-07-2022 Creatinine [Mass/Vol] 0.67 mg/dL 0.44-1.03 [facility] Eosinophils Auto (Bld) [#/Vo l]Ordered By: Becky Holder on 04-07-2022 Eosinophils (Bld) [#/Vol] 0.1 10*3/uL 0.0-0.45 [facility] Eosinophils/100 WBC Auto (Bl d)Ordered By: Becky Holder on 04-07-2022 Eosinophils/100 WBC (Bld) 1.5 % . [facility] Erythrocyte distribution wid th Auto (RBC) [Ratio]Ordered By: Becky Holder on 04-07-2022 Erythrocyte distribution width (RBC) [Ratio] 12.8 % 11.9-15.3 [facility] Erythrocytes [#/volume] in B lood by Automated countOrdered By: Becky Holder on 04-07-2022 RBC (Bld) [#/Vol] 4.74 10*6/uL 3.60-5.00 [facility] Estimated glomerular filtrat ion rate (GFR) non- AmericanOrdered By: Becky Holder on 04-07-2022 GFR/1.73 sq M.predicted among non-blacks MDRD (S/P/Bld) [Vol rate/Area] > 60 mL/Min [facility] Folate [Mass/volume] in Seru m or PlasmaOrdered By: Becky Holder on 04-07-2022 Folate [Mass/Vol] ng/mL >5.9 [facility] Comment on above: Folate reference ran ge: >5.9 ng/mlThe WHO technical consultation on folate and vitamin [id number] has determined that folate concentrations lessthan 4 ng/ml are considered deficient. Globulin Calc (S) [Mass/Vol] Ordered By: Becky Holder on 04-07-2022 Globulin (S) [Mass/Vol] 2.8 g/dL [facility] Hematocrit Auto (Bld) [Volum e fraction]Ordered By: Becky Holder on 04-07-2022 Hematocrit (Bld) [Volume fraction] 44.7 % 34.0-46.4 [facility] Hemoglobin [Mass/volume] in BloodOrdered By: Becky Holder on 04-07-2022 Hemoglobin (Bld) [Mass/Vol] 14.8 g/dL 11.8-15.4 [facility] Leukocytes [#/volume] correc arcelia for nucleated erythrocytes in Blood by Automated counOrdered By: Becky Holder on 04-07-2022 WBC corrected for nucl RBC Auto (Bld) [#/Vol] 7.0 10*3/uL 3.8-11.6 [facility] Lipid Panelon 04-07-2022 Cholesterol in LDL Elph Qn 104 mg/dL High 0-100 mg/dL [facility] [employer] Other Lipid Panel 142 mg/dL Normal 35-149 mg/dL [employer] Other Lipid Panel 28 mg/dL [employer] Other Cholesterol [Mass/Vol] 174 mg/dL Normal 140-200 [facility] Comment on above: Order Comment: PT NO T FASTING Reason for Exam Essential (primary) hypertension;Acute hyponatremia;Hypokale Result Comment: Chol less than 200 mg/dl low risk Chol 201-239 mg/dl borderline risk Chol 240 mg/dl and greater high risk Performed By: #### C MP #### [facility] [address] Cholesterol in HDL [Mass/Vol] 42 mg/dL Normal 35-85 [facility] Comment on above: Order Comment: PT NO T FASTING Reason for Exam Essential (primary) hypertension;Acute hyponatremia;Hypokale Result Comment: HDL CHOL ATP-III CLASSIFICATION Cardiovascular Risk HDL > or equal to 60 mg/dL LOW HDL < 40 mg/dL HIGH Performed By: #### C MP #### [facility] [address] [place] [address] [place] Cholesterol.total/Cho lesterol in HDL [Mass ratio] 4.1 {ratio} Normal <5.0 [facility] Comment on above: Order Comment: PT NO T FASTING Reason for Exam Essential (primary) hypertension;Acute hyponatremia;Hypokale Performed By: #### C MP #### [facility] [address] [place] [id number] [place] LDL Cholesterol,Calculate d 104 mg/dL High 0-100 [facility] Comment on above: Order Comment: PT NO T FASTING Reason for Exam Essential (primary) hypertension;Acute hyponatremia;Hypokale Result Comment: LDL ATP III CLASSIFICATION LDL less than 100 mg/dL Optimal LDL 100-129 mg/dL Near or above optimal LDL 130-159 mg/dL Borderline high LDL 160-189 mg/dL High LDL greater than 189 mg/dL Very high Performed By: #### C MP #### [facility] [address] [place] [id number] [place] Triglyceride w/Reflex 142 mg/dL Normal 35-149 [facility] Comment on above: Order Comment: PT NO T FASTING Reason for Exam Essential (primary) hypertension;Acute hyponatremia;Hypokale Result Comment: TRIG ATP III CLASSIFICATION TRIG less than 150 mg/dL Normal TRIG 150-199 mg/dL Borderline high TRIG 200-500 mg/dL High TRIG greater than 500 mg/dL Very high Standard traceable to the Center for Disease Conrtrol and Prevention (CDC) test method. Performed By: #### C MP #### [facility] [address] VLDL CHOLESTEROL 28 mg/dL Normal [facility] Comment on above: Order Comment: PT NO T FASTING Reason for Exam Essential (primary) hypertension;Acute hyponatremia;Hypokale Performed By: #### C MP #### [facility] [address] [place] [id number] [facility] Lymphocytes Auto (Bld) [#/Vo l]Ordered By: Becky Holder on 04-07-2022 Lymphocytes (Bld) [#/Vol] 1.7 10*3/uL 1.00-4.8 [facility] Lymphocytes/100 WBC Auto (Bl d)Ordered By: Becky Holder on 04-07-2022 Lymphocytes/100 WBC (Bld) 24.3 % . [facility] MCH Auto (RBC) [Entitic mass ]Ordered By: Becky Holder on 04-07-2022 MCH (RBC) [Entitic mass] 31.2 pg 24.7-34.3 [facility] MCHC Auto (RBC) [Mass/Vol]Or dered By: Becky Holder on 04-07-2022 MCHC (RBC) [Mass/Vol] 33.0 g/dL 32.0-35.0 [facility] MCV Auto (RBC) [Entitic vol] Ordered By: Becky Holder on 04-07-2022 MCV (RBC) [Entitic vol] 94.3 fL 80-100 [facility] MicroAlb Creat Ratio,Uon Albumin DL <= 20 mg/L (U) [Mass/Vol] 0.6711212 mg/dL Normal 0.0-1.8 mg/dL [facility] [employer] Other Albumin/Creatinine DL <= 20 mg/L (U) [Mass ratio] 3.402733 mg/g Normal 0.0-30.0 mg/g [facility] [employer] Other Creatinine (U) [Mass/Vol] 225.6833587 mg/dL [facility] [employer] Other Albumin DL <= 20 mg/L (U) [Mass/Vol] 0.9 mg/dL Normal 0.0-1.8 [facility] Comment on above: Order Comment: PT NO T FASTING Reason for Exam Essential (primary) hypertension;Acute hyponatremia;Hypokale Performed By: #### C MP #### [address] Creatinine, Urine (Random) 234.8 mg/dL Normal [facility] Comment on above: Order Comment: PT NO T FASTING Reason for Exam Essential (primary) hypertension;Acute hyponatremia;Hypokale Result Comment: No r eference range established Performed By: #### C MP #### [address] Microalbumin/Creatini ne Ratio 3.0 mg/g Normal 0.0-30.0 [facility] Comment on above: Order Comment: PT NO T FASTING Reason for Exam Essential (primary) hypertension;Acute hyponatremia;Hypokale Result Comment: 30-3 00 mg/g indicates an increased risk for diabetic nephropathy. Greater than 300 mg/g is consistent with clinical nephropathy. (Am. J. Kidney Disease 1995, 25:107) PERFORMED BY: [place] [address] PATHOLOGIST SOFTWARE QUALITY ENGINEER PRIYA CHERRY M.D. Performed By: #### C MP #### [address] Monocytes Auto (Bld) [#/Vol] Ordered By: Becky Holder on 04-07-2022 Monocytes (Bld) [#/Vol] 0.6 10*3/uL 0.0-0.8 [facility] Monocytes/100 WBC Auto (Bld) Ordered By: Becky Holder on 04-07-2022 Monocytes/100 WBC (Bld) 8.6 % . [facility] Neutrophils Auto (Bld) [#/Vo l]Ordered By: Becky Holder on 04-07-2022 Neutrophils (Bld) [#/Vol] 4.5 10*3/uL 1.8-7.7 [facility] Neutrophils/100 WBC Auto (Bl d)Ordered By: Becky Holder on 04-07-2022 Neutrophils/100 WBC (Bld) 64.9 % . [facility] No Panel InformationOrdered By: Becky Holder on 04-07-2022 25-Hydroxy Vitamin D Total 57.0 ng/mL 30-100 [facility] Comment on above: VITAMIN D STATUS 25( [place])VITAMIN D RANGE (ng/mL) Deficient <20 Insufficient 20 to <30Sufficient 30 to 100Reference: Mono MF,Lois BORJA, Radha SHANKAR, et al. Evaluation,treatment, and prevention of vitamin D deficiency; an Endocrine Society clinical practice guideline. JCEM. 2010; 96(7):1911-30. Estimated GFR () > 60 mL/Min [facility] Comment on above: GFR estimated refere nce range: According to KDOQI guidelines, <60 ml/min/1.73m2 is sufficient to diagnose a patient with chronic kidney disease. Pharmacy Creatinine Clearance (Chem N/A [facility] Nucleated erythrocytes [Pres ence] in Blood by Automated countOrdered By: Becky Holder on 04-07-2022 Nucleated RBC Auto Ql (Bld) 0.1 /100{WBC} 0-0.5 [facility] Platelet mean volume Auto (B ld) [Entitic vol]Ordered By: Becky Holder on 04-07-2022 Platelet mean volume (Bld) [Entitic vol] 8.2 fL 6.3-10.7 [facility] Platelets [#/volume] in Bloo d by Automated countOrdered By: Becky Holder on 04-07-2022 Platelets (Bld) [#/Vol] 253 10*3/uL 150-450 [facility] Protein [Mass/volume] in Ser um or PlasmaOrdered By: Becky Holder on 04-07-2022 Protein [Mass/Vol] 6.8 g/dL 6.1-7.9 [facility] Serum or plasma alanine sherman otransferase measurement without P-5'-P (enzymatic activiOrdered By: Becky Holder on 04-07-2022 ALT No additional P-5'-P [Catalytic activity/Vol] 55 U/L 10-60 [facility] Serum or plasma albumin/glob ulin mass ratioOrdered By: Becky Holder on 04-07-2022 Albumin/Globulin [Mass ratio] 1.4 {ratio} [facility] Serum or plasma alkaline shashi sphatase measurement (enzymatic activity/volume)Ordered By: Becky Holder on 04-07-2022 ALP [Catalytic activity/Vol] 76 U/L 32-92 [facility] Serum or plasma anion gap de terminationOrdered By: Becky Holder on 04-07-2022 Anion gap [Moles/Vol] 12.7 mmol/L 6.0-15.0 [facility] Serum or plasma aspartate am inotransferase measurement (enzymatic activity/volume)Ordered By: Becky Holder on 04-07-2022 AST [Catalytic activity/Vol] 23 U/L 10-42 [facility] Serum or plasma calcium celestine urement (mass/volume)Ordered By: Becky Holder on 04-07-2022 Calcium [Mass/Vol] 9.8 mg/dL 8.2-10.2 [facility] Serum or plasma chloride cassidy surement (moles/volume)Ordered By: Becky Holder on 04-07-2022 Chloride [Moles/Vol] 101 mmol/L 95-114 [facility] Serum or plasma glucose celestine urement (mass/volume)Ordered By: Becky Holder on 04-07-2022 Glucose [Mass/Vol] 116 mg/dL 70-100 [facility] Comment on above: ADA recommended refe rence rangeRandom Glucose Reference Range is dependent on time and content of last meal. Glucose of more than 200 mg/dL in a nonstressed, ambulatory subject supports the diagnosis of Diabetes Mellitus. Serum or plasma high density lipoprotein (HDL) cholesterol measurementOrdered By: Becky Holder on 04-07-2022 Cholesterol in HDL [Mass/Vol] 42 mg/dL 35-85 [facility] Comment on above: HDL CHOL ATP-III CLA SSIFICATION Cardiovascular RiskHDL > or equal to 60 mg/dL LOWHDL < 40 mg/dL HIGH Serum or plasma potassium me asurement (moles/volume)Ordered By: Becky Holder on 04-07-2022 Potassium [Moles/Vol] 4.4 mmol/L 3.5-5.1 [facility] Serum or plasma sodium measu rement (moles/volume)Ordered By: Becky Holder on 04-07-2022 Sodium [Moles/Vol] 140 mmol/L 136-146 [facility] Serum or plasma total biliru bin measurement (mass/volume)Ordered By: Becky Holder on 04-07-2022 Bilirubin [Mass/Vol] 1.5 mg/dL 0.3-1.2 [facility] [facility] Comment on above: Samples from patient s who have taken Naproxen have shown spurious elevation in Total Bilirubin levels. A metabolite of Naproxen, O-desmethylnaproxen, has been shown to interfere with the Alex method for measuring Total Bilirubin. Serum or plasma total carbon dioxide measurement (moles/volume)Ordered By: Becky Holder on 04-07-2022 CO2 [Moles/Vol] 30.7 mmol/L 22.0-30.0 [facility] Serum or plasma total choles terol/high density lipoprotein (HDL) cholesterol mass ratOrdered By: Becky Holder on 04-07-2022 Cholesterol.total/Cho lesterol in HDL [Mass ratio] 4.1 {ratio} <5.0 [facility] Serum or plasma urea nitroge n measurement (mass/volume)Ordered By: Becky Holder on 04-07-2022 Urea nitrogen [Mass/Vol] 12 mg/dL 9-23 [facility] TSH DL <= 0.005 mIU/L QnOrde red By: Becky Holder on 04-07-2022 TSH Qn 1.27 m[IU]/L 0.45-5.33 [facility] Thyroid Stimulating Hormoneo n 04-07-2022 TSH Qn [id number] m[IU]/L Normal 0.45-5 .33 u[iU]/mL [employer] Other TSH Qn 1.27 m[IU]/L Normal 0.45-5.33 [facility] Comment on above: Order Comment: Reaso n for Exam Essential (primary) hypertension;Mixed hyperlipidemia;Predia Performed By: #### M G, BMP #### [facility] [address] Triglyceride [Mass/volume] i n Serum or PlasmaOrdered By: Becky Holder on 04-07-2022 Triglyceride [Mass/Vol] 142 mg/dL 35-149 [facility] Comment on above: TRIG ATP III CLASSIF ICATIONTRIG less than 150 mg/dL NormalTRIG 150-199 mg/dL Borderline highTRIG 200-500 mg/dL High TRIG greater than 500 mg/dL Very highStandard traceable to the Center for Disease Conrtrol and Prevention (CDC) test method. Urine microalbumin measureme nt with detection limit of 20 mg/L or less (mass/volume)Ordered By: Becky Holder on 04-07-2022 Albumin DL <= 20 mg/L (U) [Mass/Vol] 0.9 mg/dL 0.0-1.8 [facility] Urine microalbumin/creatinin e mass ratioOrdered By: Becky Holder on 04-07-2022 Albumin/Creatinine DL <= 20 mg/L (U) [Mass ratio] 3.0 mg/g 0.0-30.0 [facility] Comment on above: 30-300 mg/g indicate s an increased risk for diabetic nephropathy. Greater than 300 mg/g is consistent with clinical nephropathy. (Am. J. Kidney Disease 1995, 25:107) Vit. B12/Folate Profileon Vit. B12/Folate Profile > 22.3 >5.9 [employer] Other Cobalamin (Vitamin B12) [Mass/Vol] 512 pg/mL Normal 180-914 [facility] Comment on above: Order Comment: Reaso n for Exam Essential (primary) hypertension;Mixed hyperlipidemia;Predia Performed By: #### Sushil Young, BMP #### [facility] [address] [place] [address] Folate > 22.3 Normal >5.9 [facility] Comment on above: Order Comment: Reaso n for Exam Essential (primary) hypertension;Mixed hyperlipidemia;Predia Result Comment: Elena te reference range: >5.9 ng/ml The WHO technical consultation on folate and vitamin b12 deficiencies has determined that folate concentrations less than 4 ng/ml are considered deficient. Performed By: #### Sushil Young, BMP #### [facility] [address] [place] [address] Vit. B12/Folate ProfileOrder ed By: Becky Holder on 04-07-2022 Cobalamin (Vitamin B12) [Mass/Vol] 512 pg/mL 180-914 [facility] Vitamin D 25 Hydroxy Totalon 04-07-2022 Vitamin D 25 Hydroxy Total 57.0 ng/mL Normal 30-100 ng/mL [employer] Other Vitamin D 25 Hydroxy Total 57.0 ng/mL Normal 30-100 [facility] Comment on above: Order Comment: Reaso n for Exam Essential (primary) hypertension;Mixed hyperlipidemia;Predia Result Comment: CLARE MIN D STATUS 25(OH)VITAMIN D RANGE (ng/mL) Deficient <20 Insufficient 20 to <30 Sufficient 30 to 100 Reference: Mono MF,Lois NC, Radha SHANKAR, et al. Evaluation,treatment, and prevention of vitamin D deficiency; an Endocrine Society clinical practice guideline. JCEM. 2010; 96(7):1911-30. PERFORMED BY: [place] [id number] PATHOLOGIST SOFTWARE QUALITY ENGINEER PRIYA CHERRY M.D. Performed By: #### Sushil Young, BMP #### [facility] [address] [place] [address] WBC Auto (Bld) [#/Vol]Ordere d By: Becky Holder on 02-18-2023 WBC (Bld) [#/Vol] 7.0 10*3/uL 3.8-11.6 [facility] A1C HEMOGLOBINon 03-06-2021 HbA1c (Bld) [Mass fraction] 5.9 % [employer] Other HbA1c (Bld) [Mass fraction]o n 03-06-2021 A1C HEMOGLOBIN [facility] [employer] Other Vital Signs Date Time Vital Sign Value Performing Clinician Facility 11-12-2022 09:00-0400 Body height 158.12 cm Becky Holder Other [employer] Other 11-12-2022 09:00-0400 Body mass index (BMI) [Ratio] 23.57 kg/m2 Becky Holder Other [employer] Other 11-12-2022 09:00-0400 Body weight 58.92 kg Becky Holder Other [employer] Other 11-12-2022 09:00-0400 Diastolic blood pressure 70 mm[Hg] Becky Holder Other [employer] Other 11-12-2022 09:00-0400 Respiratory rate 18 /min Becky Holder Other [employer] Other 11-12-2022 09:00-0400 SaO2% (BldA) [Mass fraction] 98 % Becky Holder Other [employer] Other 11-12-2022 09:00-0400 Systolic blood pressure 118 mm[Hg] Becky Holder Other [employer] Other 06-20-2022 15:20-0400 Body height 158.12 cm Chrissy Javier Other [employer] Other 06-20-2022 15:20-0400 Body mass index (BMI) [Ratio] 28.66 kg/m2 Chrissy Javier Other [employer] Other 06-20-2022 15:20-0400 Body temperature 97.3 [degF] Chrissy Javier Other [employer] Other 06-20-2022 15:20-0400 Body weight 71.67 kg Chrissy Javier Other [employer] Other 06-20-2022 15:20-0400 Diastolic blood pressure 79 mm[Hg] Chrissy Javier Other [employer] Other 06-20-2022 15:20-0400 Respiratory rate 18 /min Chrissy Javier Other [employer] Other 06-20-2022 15:20-0400 SaO2% (BldA) [Mass fraction] 98 % Chrissy Javier Other [employer] Other 06-20-2022 15:20-0400 Systolic blood pressure 121 mm[Hg] Chrissy Javier Other [employer] Other 05-25-2022 09:30-0400 Body height 158.12 cm Becky Holder Other [employer] Other 05-25-2022 09:30-0400 Body mass index (BMI) [Ratio] 30.12 kg/m2 Becky Holder Other [employer] Other 05-25-2022 09:30-0400 Body weight 75.3 kg Becky Holder Other [employer] Other 05-25-2022 09:30-0400 Diastolic blood pressure 70 mm[Hg] Becky Holder Other [employer] Other 05-25-2022 09:30-0400 Respiratory rate 18 /min Becky Holder Other [employer] Other 05-25-2022 09:30-0400 SaO2% (BldA) [Mass fraction] 96 % Becky Holder Other [employer] Other 05-25-2022 09:30-0400 Systolic blood pressure 120 mm[Hg] Becky Holder Other [employer] Other 04-25-2022 09:30-0500 Body height 158.12 cm Becky Gallo Other [employer] Other 04-25-2022 09:30-0500 Body mass index (BMI) [Ratio] 32.02 kg/m2 Becky Gallo Other [employer] Other 04-25-2022 09:30-0500 Body weight 80.06 kg Becky Holder Other [employer] Other 04-25-2022 09:30-0500 Diastolic blood pressure 80 mm[Hg] Becky Holder Other [employer] Other 04-25-2022 09:30-0500 Respiratory rate 18 /min Becky Holder Other [employer] Other 04-25-2022 09:30-0500 SaO2% (BldA) [Mass fraction] 98 % Becky Kaple Other [facility] [employer] Other 04-25-2022 09:30-0500 Systolic blood pressure 160 mm[Hg] Becky Kaple Other [facility] [employer] Other 04-19-2022 08:00-0500 Body temperature 97.7 [degF] DNP Becky Kaple Work Phone: [facility] 04-19-2022 08:00-0500 Diastolic blood pressure 80 mm[Hg] DNP Becky Kaple Work Phone: [facility] 04-19-2022 08:00-0500 Heart rate 75 /min DNP Becky Kaple Work Phone: [facility] 04-19-2022 08:00-0500 Respiratory rate 18 /min DNP Becky Kaple Work Phone: [facility] 04-19-2022 08:00-0500 SaO2% (BldA) [Mass fraction] 98 % DNP Becky Kaple Work Phone: [facility] 04-19-2022 08:00-0500 Systolic blood pressure 121 mm[Hg] DNP Becky Kaple Work Phone: [facility] 04-19-2022 06:00-0500 Body weight 83.4 kg DNP Becky Kaple Work Phone: [facility] 04-18-2022 16:09-0500 Body height 161.29 cm DNP Becky Kaple Work Phone: [facility] 04-17-2022 23:54-0500 Diastolic blood pressure 68 mm[Hg] DNP Becky Kaple Work Phone: [phone] [place] [address] 04-17-2022 23:54-0500 Heart rate 72 /min DNP Becky Kaple Work Phone: [facility] 04-17-2022 23:54-0500 Respiratory rate 18 /min DNP Becky Kaple Work Phone: [facility] 04-17-2022 23:54-0500 SaO2% (BldA) [Mass fraction] 97 % DNP Becky Kaple Work Phone: [facility] 04-17-2022 23:54-0500 Systolic blood pressure 152 mm[Hg] DNP Becky Kaple Work Phone: [phone] [place] [address] 04-17-2022 18:59-0500 Body height 161.29 cm DNP Becky Kaple Work Phone: 5(285)[phone] [place] [address] 04-17-2022 18:59-0500 Body temperature 98.3 [degF] DNP Becky Kaple Work Phone: 6(677)[phone] [place] [address] 04-17-2022 18:59-0500 Body weight 81.35 kg DNP Becky Kaple Work Phone: [facility] 04-10-2022 22:30-0500 Diastolic blood pressure 70 mm[Hg] DNP Becky Kaple Work Phone: [facility] 04-10-2022 22:30-0500 Systolic blood pressure 151 mm[Hg] DNP Becky Kaple Work Phone: [facility] 04-10-2022 22:15-0500 Heart rate 79 /min DNP Becky Kaple Work Phone: [facility] 04-10-2022 22:15-0500 Respiratory rate 14 /min DNP Becky Kaple Work Phone: [facility] 04-10-2022 22:15-0500 SaO2% (BldA) [Mass fraction] 94 % DNP Becky Kaple Work Phone: [facility] 04-10-2022 20:25-0500 Body height 160.02 cm DNP Becky Holder Work Phone: [facility] 04-10-2022 20:25-0500 Body temperature 97.8 [degF] DNP Becky Holder Work Phone: [facility] 04-10-2022 20:25-0500 Body weight 83.3 kg DNP Becky Holder Work Phone: [facility] 04-09-2022 11:15-0500 Body height 158.12 cm Becky Rojastulio Other [employer] Other 04-09-2022 11:15-0500 Body mass index (BMI) [Ratio] 33.67 kg/m2 Becky Gallo Other [employer] Other 04-09-2022 11:15-0500 Body weight 84.19 kg Becky Rojastulio Other [employer] Other 04-09-2022 11:15-0500 Diastolic blood pressure 82 mm[Hg] Becky Gallo Other [employer] Other 04-09-2022 11:15-0500 Respiratory rate 18 /min Becky Kaptulio Other [employer] Other 04-09-2022 11:15-0500 SaO2% (BldA) [Mass fraction] 98 % Becky Gallo Other [employer] Other 04-09-2022 11:15-0500 Systolic blood pressure 160 mm[Hg] Becky Holder Other [employer] Other 03-06-2021 11:15-0500 Body height 158.12 cm Becky Gallo Other [employer] Other 03-06-2021 11:15-0500 Body mass index (BMI) [Ratio] 33.62 kg/m2 Becky Gallo Other [employer] Other 03-06-2021 11:15-0500 Body temperature 96.4 [degF] Becky Gallo Other [employer] Other 03-06-2021 11:15-0500 Body weight 84.05 kg Becky Gallo Other [employer] Other 03-06-2021 11:15-0500 Diastolic blood pressure 88 mm[Hg] Becky Holder Other [employer] Other 03-06-2021 11:15-0500 Respiratory rate 18 /min Becky Holder Other [employer] Other 03-06-2021 11:15-0500 SaO2% (BldA) [Mass fraction] 98 % Becky Holder Other [employer] Other 03-06-2021 11:15-0500 Systolic blood pressure 138 mm[Hg] Becky Holder Other [employer] Other Encounters Encounter Date Encounter Type Care Provider Facility Start: 07-23-2023 End: 07-23-2023 ambulatory MIRTHA MARS [facility] Start: 07-08-2023 End: 07-08-2023 ambulatory MARY CANTU [facility] Start: 05-17-2023 End: [facility]: 05-17-[facility]23 End: 05-17-2023 Encounter for general adult medical examination without abnormal findings MARY CANTU [facility] Start: 03-26-2023 [facility] Start: 12-12-2022 End: 12-12-2022 ambulatory Becky Holder Other [employer] Other Start: 12-12-2022 Telephone encounter Becky Holder [facility] [place] Start: 11-12-2022 End: 11-12-2022 ambulatory Becky Rojasle Other [employer] Other Start: 11-12-2022 Office outpatient vi sit 25 minutes Becky Holder [facility] [place] Start: 10-30-2022 End: 10-30-2022 ambulatory Becky Boble Facility:[facility] Start: 10-30-2022 End: 10-30-2022 ambulatory DNP Becky Boble Work Phone: [facility] Work Phone: Start: 10-30-2022 End: 10-30-2022 Patient encounter procedure DNP Becky Boble Work Phone: [facility] [place] Work Phone: Start: 08-02-2022 End: 08-02-2022 ambulatory Beckyzuly Rojasle Other [employer] Other Start: 08-02-2022 Telephone encounter Becky Holder [facility] [place] Start: 07-09-2022 End: 07-09-2022 ambulatory Beckyzuly Holder Facility:[facility] Start: 06-21-2022 End: 06-21-2022 ambulatory Chrissy Javier Other [employer] Other Start: 06-21-2022 Telephone encounter Chrissy Javier [facility] Start: 06-20-2022 End: 06-20-2022 ambulatory Chrissy Javier Other [employer] Other Start: 06-20-2022 Office outpatient ne w 45 minutes Chrissy Javier [facility] Start: 05-29-2022 End: 05-29-2022 ambulatory Becky Kaple Facility:[facility] Start: 05-29-2022 End: 05-29-2022 ambulatory DNP Becky Kaple Work Phone: [phone] Work Phone: Start: 05-29-2022 End: 05-29-2022 Patient encounter procedure DNP Becky Kaple Work Phone: [facility]ound [place] Work Phone: Start: 05-25-2022 End: 05-25-2022 ambulatory Becky Kaple Other [employer] Other Start: 05-25-2022 Office outpatient vi sit 25 minutes Becky Kaple [facility] [place] Start: 05-04-2022 End: 05-04-2022 ambulatory Becky Kaple Facility:[facility] Start: 05-04-2022 End: 05-04-2022 ambulatory DNP Becky Kaple Work Phone: [facility] Work Phone: Start: 05-04-2022 End: 05-04-2022 Patient encounter procedure DNP Becky Kaple Work Phone: [facility] [place] Work Phone: Start: 05-01-2022 End: 05-01-2022 ambulatory Becky Kaple Other [employer] Other Start: 05-01-2022 Telephone encounter Becky Gallo [facility] Start: 04-30-2022 End: 04-30-2022 ambulatory Becky Holder Facility:[facility] Start: 04-30-2022 End: 04-30-2022 ambulatory DNP Becyk Rojasle Work Phone: [facility] Work Phone: Start: 04-30-2022 End: 04-30-2022 Patient encounter procedure DNP Becky Holder Work Phone: [facility] [place] Work Phone: Start: 04-26-2022 End: 04-26-2022 ambulatory Becky Holder Other [employer] Other Start: 04-26-2022 Telephone encounter Becky Holder [facility] [place] Start: 04-25-2022 End: 04-25-2022 ambulatory Beckyzuly Holder Other [employer] Other Start: 04-25-2022 Transitional care shilo shepherd srvc 14 day discharge Beckyzuly Rojastulio [facility] [place] Start: 04-23-2022 End: 04-23-2022 ambulatory Stephane Juárez Facility:[facility] Start: 04-23-2022 End: 04-23-2022 ambulatory DNP Becky Holder Work Phone: [facility] Work Phone: Start: 04-23-2022 End: 04-23-2022 Patient encounter procedure DNP Becky Holder Work Phone: [facility] [place] Work Phone: Start: 04-20-2022 End: 04-20-2022 ambulatory Becky Kaple Other [employer] Other Start: 04-20-2022 Telephone encounter Becky Rojastulio [facility] [place] Start: 04-17-2022 End: 04-19-2022 Evaluation and management of inpatient DNP Becky Holder Work Phone: [facility] [place] [facility] Work Phone: Start: 04-17-2022 End: 04-19-2022 observation encounter DNP Becky Holder Work Phone: [facility] Work Phone: Start: 04-17-2022 End: 04-19-2022 ambulatory Stephane Owen Juárez [place] [employer] Other Start: 04-17-2022 Telephone encounter Becky Rojastulio [facility] [place] Start: 04-11-2022 End: 04-11-2022 ambulatory Becky Holder Other [employer] Other Start: 04-11-2022 Telephone encounter Beckyzuly Rojastulio [facility] [place] Start: 04-10-2022 End: 04-11-2022 Emergency department patient visit Sylvie Merritt Facility:[facility] Start: 04-10-2022 End: 04-10-2022 Emergency department patient visit DNP Becky Holder Work Phone: [facility] Work Phone: Start: 04-09-2022 End: 04-09-2022 ambulatory Becky Holder Other [employer] Other Start: 04-09-2022 Patient encounter procedure Becky Holder [facility] [place] Start: 04-07-2022 End: 04-07-2022 ambulatory Becky Holder Facility:[facility] Start: 04-07-2022 End: 04-07-2022 ambulatory DNP Becky Holder Work Phone: [facility] Work Phone: Start: 04-07-2022 End: 04-07-2022 Patient encounter procedure DNP Becky Holder Work Phone: [facility] [place] Work Phone: Start: 03-22-2022 End: 03-22-2022 ambulatory Becky Rojastulio Other [employer] Other Start: 03-22-2022 Telephone encounter Becky Rojas [facility] Start: 03-06-2021 End: 03-06-2021 ambulatory Becky Gallo Other [employer] Other Start: 03-06-2021 Encounter for genera l adult medical examination without abnormal findings Becky Holder [facility] [place] Start: 03-06-2021 Periodic preventive med est patient 40-64yrs Becky Holder [facility] Plan of Treatment Date Care Activity Detail Author Start: 05-29-2022 Doppler ultrasonogra phy of kidney US renal doppler [facility] Start: 05-29-2022 US Unspecified body region [facility] Start: 04-19-2022 [facility] Start: 04-18-2022 Blood chemistry [facility] Start: 04-18-2022 Magnesium measurement [facility] Start: 04-18-2022 [facility] Start: 04-18-2022 Blood chemistry [facility] Start: 04-17-2022 End: 04-18-2022 [facility] Start: 04-17-2022 Hospital admission [facility] Aldosterone [Mass/vo lume] in Serum or Plasma [facility] Blood chemistry [facility] Patient Education [facility] Work Phone: Patient referral [facility] Work Phone: Renin [Enzymatic activity/volume] in Plasma [facility] Immunizations Immunization Date Immunization Notes Care Provider Fa edin 01-31-2022 influenza, seasonal, injectable Becky Holder Other [employer] Other 12-04-2020 influenza, seasonal, injectable Becky Holder Other [employer] Other 04-16-2020 COVID-19 Vaccine Pfi zer - Documentation Purposes Only Becky Holder Other [employer] Other Payers Date Payer Category Payer Self-pay [id number] 2022 Unknown [id number] 2021 Medicare [id number] [facility] [id number] Unknown [id number] 2. [id number] Unknown [id number] 2.16.8 [id number] Unknown [id number] 2.16.8 [id number] Unknown [id number] 2.16.8 [id number] Unknown [id number] 2.16.8 [id number] Unknown [id number] 2.16.8 [id number] Unknown [id number] 2.16.8 [id number] Unknown [id number] 2.16.8 [id number] Unknown [id number] 2.16.8 [id number] Unknown [id number] 2.16.8 [id number] Social History Date Type Detail Facility Sex Assigned At [employer] Other Start: 1955 Sex Assigned At Female F [facility] Start: 04-10-2022 End: 04-18-2022 Tobacco smoking status NHIS Never smoked tobacco (finding) [facility] Goals Date Patient Goal Desired Activity /State Functional Status Date Assessment Result Facility 04-19-2022 Functional status Patient at Baseline [facility] Work Phone: Mental Status Date Assessment Result Facility 04-19-2022 Cognitive function Cognitive Sta tus Patient at Baseline [facility] Work Phone: Clinical Notes 03-06-2021 to 07-23-2023 Note Date & Type Note Facility 07-23-2023 Note Patient here for 4 m o follow up hypertension, hyperlipidemia, and LBBB. She had lipid panel a few days ago. She denies chest pain, SOB, palpitations, and lightheadedness/syncope. Review of Systems All other systems reviewed and are negative. [facility] 07-23-2023 Note Cardiovascular Medic [facility] SUBJECTIVE Chief Complaint Patient presents with Hypertension Hyperlipidemia Phan Kessler is a 68 y.o. female here for follow-up. Her Oj accompanied her today. HPI PMHx: HTN (longstanding), LBBB, HLD 07/23/2023 She has been feeling well, enjoying the warm weather. BP at home has been running 100-115/60s Denies c/o CP, dyspnea, orthopnea, PND, LE edema, dizziness/LH, palpitations, syncope. ------ She has been feeling well since last seen. Her hydrochlorothiazide was held after her follow-up BMP after last visit due to low sodium. BP at home has been running high 90s-120s/50-60s. She's asking to go back on her hydrochlorothiazide as she feels she doesn't urinate as often as before during the day and gets up a couple times at night to urinate. She denies any issues with weight gain, leg swelling, SOB, orthopnea, PND. Denies c/o CP, dizziness/LH, palpitations, syncope. ------ Last HPI per Dr. Shafer: She is a 66-year-old woman with history of hypertension and left bundle branch block. The following is from review of outside records: She was admitted on 04/17/2022 to an outside hospital with complaints of hypertension and headache. She was previously maintained on amlodipine, carvedilol and lisinopril/hydrochlorothiazide combination. On admission her blood pressure was 195/90. Her echocardiogram showed mild diastolic dysfunction. She had hypokalemia with a potassium of 3. She was also noted to have hyponatremia that was attributed to her high water intake and low salt intake in an attempt to lose weight. Her hydrochlorothiazide was held. Her electrolytes normalized. Her ECG showed prolonged QT. She was recently seen at her primary care provider's office and the repeat K was elevated and then hydrochlorothiazide was resumed at 12.5 mg daily [she previously was taking 25 mg daily.] A follow-up blood testing showed that renal function and potassium were in normal range. she denies chest pain, shortness of breath, palpitations, dizziness, syncope and leg edema. she has good exercise tolerance. There is no claudication. Patient Active Problem List Diagnosis Essential hypertension Long QT interval Hypokalemia Acute hyponatremia Elevated bilirubin No past medical history on file. Family History Problem Relation Name Age of Onset Brain cancer Mother Heart attack Father 39 Sudden Father Social History Tobacco Use Smoking status: Never Smokeless tobacco: Never Vaping Use Vaping Use: Never used Substance Use Topics Alcohol use: Not Currently Comment: very rarely Drug use: Never No Known Allergies Review of Systems Constitutional: Negative for chills, decreased appetite, fever, malaise/fatigue and weight gain. Cardiovascular: Negative for chest pain, dyspnea on exertion, irregular heartbeat, leg swelling, near-syncope, orthopnea, palpitations, paroxysmal nocturnal dyspnea and syncope. Hematologic/Lymphatic: Negative for bleeding problem. Does not bruise/bleed easily. OBJECTIVE Visit Vitals BP 132/76 (BP Location: Right arm, Patient Position: Sitting) Pulse 64 Ht 1.6 m (5' 3 ) Wt 52.6 kg (116 lb) SpO2 100% BMI 20.55 kg/m??? OB Status Postmenopausal Smoking Status Never BSA 1.53 m??? Medications: Current Outpatient Medications: amLODIPine (Norvasc) 10 mg tablet, Take 1 tablet (10 mg) by mouth at bedtime., Disp: 90 tablet, Rfl: 3 carvedilol (Coreg) 25 mg tablet, Take 1 tablet (25 mg) by mouth with breakfast and with evening meal., Disp: 180 tablet, Rfl: 3 lisinopril 30 mg tablet, Take 1 tablet (30 mg) by mouth in the morning., Disp: 90 tablet, Rfl: 3 atorvastatin (Lipitor) 40 mg tablet, Take 1 tablet (40 mg) by mouth in the morning., Disp: 90 tablet, Rfl: 3 Physical Exam Vitals reviewed. Constitutional: Appearance: Normal appearance. She is normal weight. HENT: Head: Normocephalic and atraumatic. Right Ear: External ear normal. Left Ear: External ear normal. Eyes: Extraocular Movements: Extraocular movements intact. Conjunctiva/sclera: Conjunctivae normal. Pupils: Pupils are equal, round, and reactive to light. Neck: Vascular: No carotid bruit. Cardiovascular: Rate and Rhythm: Normal rate and regular rhythm. Pulses: Normal pulses. Heart sounds: Normal heart sounds. Pulmonary: Effort: Pulmonary effort is normal. Breath sounds: Normal breath sounds. Abdominal: General: Bowel sounds are normal. Palpations: Abdomen is soft. Musculoskeletal: Cervical back: Neck supple. Right lower leg: No edema. Left lower leg: No edema. Skin: General: Skin is warm and dry. Neurological: General: No focal deficit present. Mental Status: She is alert and oriented to person, place, and time. Psychiatric: Mood and Affect: Mood normal. Behavior: Behavio (more content not included)... [facility] 07-08-2023 Note Pt was informed. [facility] 05-17-2023 Note Subjective Patient ID: Phan Kessler is a 67 y.o. female who presents for Establish Care. HPI Pt. Here to establish care. [place] . He is having treatment here for lung cancer at [facility]. They would like all their doctors to be in the same place for continuity of care. She has had hx of severe hypertension and had been hospitalized for it. After complete work up was done it was determined to be due to stress. She was dealing with figuring out insurance for her since she had just retired, and dealing with her 's recent cancer diagnosis. Currently her BP is elevated 144/74. She monitors it twice a day at home and has been well controlled 110-120's/70's. States she also had a 72 lb weight loss. She used to weigh 189 and is now 117 lb. Has no voiced concerns or complaints today. Denies any pain. 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 HENT: Negative. Eyes: Negative. Respiratory: Negative. Cardiovascular: Negative for chest pain and palpitations. Gastrointestinal: Negative. Endocrine: Negative. Genitourinary: Negative. Musculoskeletal: Negative. Skin: Negative. Allergic/Immunologic: Negative. Neurological: Negative. Hematological: Negative. Psychiatric/Behavioral: Negative. Objective Temp: [36.8 ???C (98.2 ???F)] 36.8 ???C (98.2 ???F) Heart Rate: [60] 60 BP: (143-144)/(74-77) 144/74 Physical Exam Constitutional: Appearance: She is normal weight. HENT: Head: Normocephalic. Right Ear: External ear normal. Left Ear: External ear normal. Nose: Nose normal. Mouth/Throat: Pharynx: Oropharynx is clear. Eyes: Extraocular Movements: Extraocular movements intact. Conjunctiva/sclera: Conjunctivae normal. Cardiovascular: Rate and Rhythm: Normal rate and regular rhythm. Pulses: Normal pulses. Heart sounds: Normal heart sounds. Pulmonary: Effort: Pulmonary effort is normal. Breath sounds: Normal breath sounds. Abdominal: General: Bowel sounds are normal. Palpations: Abdomen is soft. Musculoskeletal: General: Normal range of motion. Cervical back: Normal range of motion. Right lower leg: No edema. Left lower leg: No edema. Skin: General: Skin is warm. Neurological: Mental Status: She is oriented to person, place, and time. Psychiatric: Behavior: Behavior normal. Assessment/Plan Pt. Will continue to monitor BP at home. Will follow for now and not make any changes to hypertension meds. of amlodipine, carvedilol and lisinopril. She follows with cardiology as well. She has pending labs for CMP and lipid panel, will also order CBC, TSH and HGB A1C for baseline. She has never had a colonoscopy and will order it to be done. She is also due for a mammogram. Will follow up in 6 months for her MAWV. Diagnoses and all orders for this visit: Wellness examination - Hemoglobin A1c; Future - Screening Colonoscopy; Future - CBC and differential; Future - TSH; Future Encounter for screening mammogram for malignant neoplasm of breast - Bilateral screening mammogram with tomosynthesis; Future Orders Placed This Encounter Procedures Bilateral screening mammogram with tomosynthesis Standing Status: Future Standing Expiration Date: 07/16/2024 Scheduling Instructions: The phone number to contact [facility] Radiology is Once you have been placed into the phone tree, it will prompt with the following options. 1 - CT scheduling 2 - MRI scheduling 3 - Ultrasound scheduling 4 - X-ray, Nuclear Medicine, Mammograms scheduling 5 - Reports/Image requests or general questions Order Specific Question: May perform additional testing - diagnostic imaging, ultrasound and biopsy at the Radiologist discretion? Answer: Yes Order Specific Question: Release to Patient Answer: Immediately Hemoglobin A1c Standing Status: Future Standing Expiration Date: 05/16/2024 Order Specific Question: Release to Patient Answer: Immediately CBC and differential Standing Status: Future Standing Expiration Date: 05/16/2024 Order Specific Question: Release to Patient Answer: Immediately TSH Standing Status: Future Standing Expiration Date: 05/16/2024 Order Specif (more content not included)... [facility] 03-26-2023 Note [facility] SUBJECTIVE Chief Complaint Patient presents with Hypertension Phan Kessler is a 67 y.o. female here for follow-up. Her Oj accompanied her today. HPI PMHx: HTN (longstanding), LBBB, HLD She has been feeling well since last seen. Her hydrochlorothiazide was held after her follow-up BMP after last visit due to low sodium. BP at home has been running high 90s-120s/50-60s. She's asking to go back on her hydrochlorothiazide as she feels she doesn't urinate as often as before during the day and gets up a couple times at night to urinate. She denies any issues with weight gain, leg swelling, SOB, orthopnea, PND. Denies c/o CP, dizziness/LH, palpitations, syncope. ------ Last HPI per Dr. Shafer: She is a 66-year-old woman with history of hypertension and left bundle branch block. The following is from review of outside records: She was admitted on 04/17/2022 to an outside hospital with complaints of hypertension and headache. She was previously maintained on amlodipine, carvedilol and lisinopril/hydrochlorothiazide combination. On admission her blood pressure was 195/90. Her echocardiogram showed mild diastolic dysfunction. She had hypokalemia with a potassium of 3. She was also noted to have hyponatremia that was attributed to her high water intake and low salt intake in an attempt to lose weight. Her hydrochlorothiazide was held. Her electrolytes normalized. Her ECG showed prolonged QT. She was recently seen at her primary care provider's office and the repeat K was elevated and then hydrochlorothiazide was resumed at 12.5 mg daily [she previously was taking 25 mg daily.] A follow-up blood testing showed that renal function and potassium were in normal range. she denies chest pain, shortness of breath, palpitations, dizziness, syncope and leg edema. she has good exercise tolerance. There is no claudication. Patient Active Problem List Diagnosis Essential hypertension Long QT interval Hypokalemia No past medical history on file. Family History Problem Relation Name Age of Onset Heart attack Father 39 Sudden Father Social History Tobacco Use Smoking status: Never Smokeless tobacco: Never Substance Use Topics Alcohol use: Not Currently Drug use: Never No Known Allergies Review of Systems Constitutional: Negative for chills, decreased appetite, fever, malaise/fatigue and weight gain. Cardiovascular: Negative for chest pain, dyspnea on exertion, irregular heartbeat, leg swelling, near-syncope, orthopnea, palpitations, paroxysmal nocturnal dyspnea and syncope. Hematologic/Lymphatic: Negative for bleeding problem. Does not bruise/bleed easily. OBJECTIVE Visit Vitals BP 139/64 (BP Location: Right arm, Patient Position: Sitting, BP Cuff Size: Adult) Pulse 68 Ht 1.6 m (5' 3 ) Wt 53.5 kg (118 lb) BMI 20.90 kg/m??? Smoking Status Never BSA 1.54 m??? Medications: Current Outpatient Medications: amLODIPine (Norvasc) 10 mg tablet, Take 1 tablet (10 mg) by mouth at bedtime., Disp: 90 tablet, Rfl: 3 atorvastatin (Lipitor) 20 mg tablet, Take 1 tablet (20 mg) by mouth in the morning., Disp: 90 tablet, Rfl: 3 carvedilol (Coreg) 25 mg tablet, Take 1 tablet (25 mg) by mouth with breakfast and with evening meal., Disp: 180 tablet, Rfl: 3 lisinopril 30 mg tablet, Take 1 tablet (30 mg) by mouth in the morning., Disp: 90 tablet, Rfl: 3 Physical Exam Cardiovascular: Rate and Rhythm: Normal rate. Labs: Office Visit on 05/09/2022 Component Date Value Ref Range Status Sodium 05/24/2022 131 (L) 136 - 145 mmol/L Final Potassium 05/24/2022 4.5 3.5 - 5.1 mmol/L Final Chloride 05/24/2022 92 (L) 98 - 107 mmol/L Final CO2 05/24/2022 31 21 - 31 mmol/L Final BUN 05/24/2022 18 7 - 25 mg/dL Final Creatinine 05/24/2022 0.77 0.60 - 1.20 mg/dL Final Glucose 05/24/2022 113 (H) 70 - 100 mg/dL Final Calcium 05/24/2022 9.8 8.6 - 10.3 mg/dL Final Anion Gap 05/24/2022 13 7 - 20 mmol/L Final eGFR 05/24/2022 85.6 >60.0 mL/min/1.73m*2 Final BUN/Creatinine Ratio 05/24/2022 23.4 Final No results found for: EXTCMP , BMPR1A , CBCDIF , BNP , LASAP , RED 10/30/2022 Cr 0.57, BUN 10, K 4.4, eGFR >60 07/09/2022 Cr 0.68, BUN 15, K 4.5, eGFR >60, AST 16, ALT 22 Blood testing 05/04/2022: BUN 13, Cr 0.7, Na 137, K 4.5. (after 4 days of resuming hydrochlorothiazide at 12.5 mg daily). 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 Both kidneys are similar in height with no significant focal stenosis noted in either renal artery. However, the cortical thickness of the right renal kidney is slightly diminished ECG 04/10/2022: Normal sinus rhythm, left axis deviation, left bundle branch block. QTc 490 ms ECG 05/09/2022: Normal sinus rhythm, left bundle branch block. QTc 4 (more content not included)... [facility] 11-12-2022 Evaluation note Encounter Date Diagnosis Assessment Notes Oct, Essential (primary) hypertension (ICD-10 - I10) Blood pressure well controlled with Lisinopril, Coreg, Amlodipine, and HCTZ; however, she is getting some low readings at home 90-100s systolically. She is following with [place] [facility] pathologist and will call them and update them with her bp readings since she has lost weight and likely BP medication has to be titrated to reflect this weight loss. UTD with lab work. She will check BP at home and notify office should BP > 140/90. Specialty notes reviewed as received. Take medication as prescribed, keep follow up appointments, get any testing that's been ordered done in a timely fashion. Do not smoke. Call if any questions or problems. For Hypertension: Patient is advised to work on healthy diet choices and appropriate servings, weight control, regular exercise as directed, and salt avoidance. Monitor blood pressures at home and call if above target. Oct, Mixed hyperlipidemia (ICD-10 - E78.2) UTD with lab work. Continue Lipitor 20 mg daily. Will continue current treatment plan. , Take medication as prescribed, keep follow up appointments, get any testing that's been ordered done in a timely fashion. Do not smoke. Call if any questions or problems. For Cholesterol: Patient is advised to work on healthy diet choices and appropriate servings, weight control, regular exercise as directed, and reduce fat intake. Oct, Prediabetes (ICD-10 - R73.09) Hgba1c shows great control of prediabetes with diet and exercise changes. Patient is advised to work on healthy diet choices and appropriate servings, weight control, regular exercise as directed, and reduce fat intake. Follow up in 6 months to recheck hgba1c. Oct, BMI 23.0-23.9, adult (ICD-10 - Z68.23) Patient is advised to work on healthy diet choices and appropriate servings, weight control, regular exercise as directed, reduced fat intake, and salt avoidance. Patient voiced understanding of this and agrees to this plan. [employer] Other 06-15-2023 Evaluation note* Encounter Date Diagnosis Assessment Notes Treatment Notes Treatment Clinical Notes Jul, Essential (primary) hypertension (ICD-10 - I10) [employer] Other 05-03-2023 Evaluation note* Encounter Date Diagnosis Assessment Notes Treatment Notes Treatment Clinical Notes June, Hypertension (ICD-10 - I10) It was a pleasure to see Mr. Kessler in our office for an evaluation management of the hypertension and high renin level. As you know she has a high renin with normal aldosterone it may be likely due to the DAMON inhibitor. She likely has essential hypertension. She has unremarkable renal artery Doppler. Her blood pressure is controlled on current regimen. I will continue that. Advised low salt diet. June, Hyperkalemia (ICD-10 - E87.5) She had hyperkalemia likely due to the lisinopril. Her dose was recently increased. Advised her to have a repeat testing done with the PCP. I would recommend that if she has hyperkalemia then reduce the dose of the lisinopril to 20 mg daily. She can also be restarted on the low-dose hydrochlorothiazide with the fluid restriction 50 to 60 ounces a day if needed for uncontrolled hypertension or hyperkalemia. Her BP can be checked 1 week after the change in the medications for monitoring of the serum sodium and potassium. June, Hyponatremia (ICD-10 - E87.1) She had hyponatremia likely due to the excessive fluid intake and HCTZ. She has unremarkable work-up for hypothyroidism and renal insufficiency with normal TSH and cortisol level. Her serum sodium is back to normal with the fluid restriction and discontinuation of the hydrochlorothiazide. I have advised her to stay on the fluid restriction 50 to 60 ounces a day. June, Dyslipidemia (ICD-10 - E78.5) Continue statins. Continue to monitor lipid profile and LFTs. [employer] Other 04-07-2023 Evaluation note* Encounter Date Diagnosis Assessment Notes Treatment Notes Treatment Clinical Notes May, Essential (primary) hypertension (ICD-10 - I10) She is doing very well. Blood pressure is much better controlled on HCTZ, Lisinopril, Amlodipine, and Coreg. Lab work done by voice pathologist reviewed today. She will continue to monitor her blood pressures. She will continue to follow with [place] cardi[facility]. She will keep her upcoming appointment with Dr. Herrera for elevated renin levels and complete renal us ordered by cardiology. Specialty notes reviewed as received. Take medication as prescribed, keep follow up appointments, get any testing that's been ordered done in a timely fashion. Do not smoke. Call if any questions or problems. For Hypertension: Patient is advised to work on healthy diet choices and appropriate servings, weight control, regular exercise as directed, and salt avoidance. Monitor blood pressures at home and call if above target. May, Obesity (BMI 30-39.9) (ICD-10 - E66.9) Continue with weight loss and watching diet and exercise. Patient is advised to work on healthy diet choices and appropriate servings, weight control, regular exercise as directed, reduced fat intake, and salt avoidance. Patient voiced understanding of this and agrees to this plan. [employer] Other 03-14-2023 Evaluation note* Encounter Date Diagnosis Assessment Notes Treatment Notes Treatment Clinical Notes Apr, Essential (primary) hypertension (ICD-10 - I10) [employer] Other 03-08-2023 Evaluation note* Encounter Date Diagnosis Assessment Notes Treatment Notes Treatment Clinical Notes Apr, Hospital discharge follow-up (ICD-10 - Z09) She is seen today for hospital follow up for HTN, hypokalemia and hyponatremia due to HCTZ, drinking a lot of water, and sodium restriction in diet. She has since stopped the HCTZ. Her Lisinopril, Amlodipine and Coreg were continued. Blood pressures continue to improve and are starting to return to baseline since changes to medications have been done. Repeat CMP shows increase in K slightly with normal Na. Will stop her Mg as this is likely increasing her K with it. Recheck CMP on Saturday of next week. Continue DASH diet. She will check bp and log. She will continue current HTN medications including Lisinopril, Coreg and Amlodipine. She will keep her follow up with [place] [facility] [employer] [facility] on 05/09/22 for HTN, hyponatremia, hypokalemia and prolonged QT that did improve at hospital discharge. Will await renin and aldosterone levels as they are still pending from hospital discharge. Specialty notes reviewed as received. She will follow up in our office in 4 weeks, sooner if needed. Apr, Essential (primary) hypertension (ICD-10 - I10) See above treatment plan. Apr, Acute hyponatremia (ICD-10 - E87.1) See above treatment plan. Apr, Hypokalemia (ICD-10 - E87.6) See above treatment plan. Apr, Elevated bilirubin (ICD-10 - R17) See above treatment plan. Apr, Long QT interval (ICD-10 - R94.31) See above treatment plan. [employer] Other 03-01-2023 Progress note Author Stephane Juárez [facility] April 18, 2022 4:00pm Note Date/Time April 18, 2022 4:00 pm [facility] [address] [place] [address] Hospitalist Progress Note Signed Patient: Phan Kessler MR#: [id number] : 1955 Acct:[id number] Age/Sex: 66 / F Adm Date: 3 Loc: 3T Room: [address] [place] [address] Type: ADM INOo Attending Dr: Stephane Juárez DO Copies to: ~ Date of Service: 04/18/2022 Subjective Subjective Narrative: Seen and evaluated at bedside, states she has had elevated blood pressure on andoff for most of her life, most recently the amlodipine 10mg was added to her medications. HCTZ held as noted. Her QTc was prolonged on initial and repeat EKG, >500 and 488 later on today. Exam Physical Exam Vital Signs: Temp Pulse Resp BP Pulse Ox O2 Del Method 97.2 F L 75 16 137/83 98 Room Air 04/18/22 00:30 04/18/22 11:12 04/18/22 11:12 04/18/22 11:12 04/18/22 11:12 04/18/22 11:12 Narrative: General: Awake alert, no acute distress HEENT: head atraumatic, normocephalic, moist mucous membranes Neck: supple no masses, no lymphadenopathy CVS: regular rate and rhythm, no murmurs or gallops Respiratory: clear to auscultation bilaterally, no wheezing or crackles, symmetric expansion GI: soft, nondistended, nontender, positive bowel sounds with no organomegaly Extremity: moves all extremities, no restrictions of movements, no calf tenderness, no edema Neuro: AOx3, CN II-VII intact. Moves all extremities in all planes of motion. Skin: dry, intact no rashes or lesions Objective Lab Results 04/17/22 21:26 04/18/22 05:36 Meds Allergies and Active Meds Allergies No Known Allergies Allergy (Verified 04/17/22 18:54) Active Meds: Active Medications Generic Name Dose Route Start Last Admin Trade Name Freq PRN Reason Stop Dose Admin Acetaminophen 650 mg 04/17/22 23:50 04/18/22 01:59 Acetaminophen 325 Mg Tablet PO 04/17/23 23:49 650 mg Q6HR PRN Administration Pain Scale 1 - 3 or fever Amlodipine Besylate 10 mg 04/18/22 22:00 Amlodipine 10 Mg Tablet PO 04/18/23 08:59 QHS JUMA Atorvastatin Calcium 20 mg 04/18/22 21:00 Atorvastatin 20 Mg Tablet PO 04/18/23 20:59 QPM JUMA Carvedilol 25 mg 04/18/22 08:00 04/18/22 08:14 Carvedilol 25 Mg Tablet PO 04/18/23 07:59 25 mg BID.WITH.MEALS JUMA Administration Enoxaparin Sodium 40 mg 04/18/22 10:00 04/18/22 10:51 Enoxaparin 40 Mg/0.4 Ml Syringe SUBCUT 04/18/23 09:59 40 mg DAILY@10 JUMA Administration Hydralazine HCl 10 mg 04/17/22 23:50 Hydralazine 20 Mg/Ml Vial IV-PUSH 04/17/23 23:49 Q4H PRN Hypertension Labetalol HCl 5 mg 04/17/22 23:50 Labetalol 100 Mg/20 Ml Vial IV-PUSH 04/17/23 23:49 Q4H PRN Hypertension Lisinopril 20 mg 04/18/22 09:00 04/18/22 08:14 Lisinopril 20 Mg Tablet PO 04/18/23 08:59 20 mg BID JUMA Administration Potassium Chloride 40 meq 04/18/22 09:00 04/18/22 08:14 Potassium Chloride Er 20 Meq Tab.Er.Prt PO 04/18/23 08:59 40 meq DAILY JUMA Administration A&P - Hospitalist Assessment/Plan (1) Acute hyponatremia: Plan: ? Likely secondary to increase fluid intake with decrease salt intake recently and attempt to lose weight and control blood pressure ? I have been normal previously (2) Hypokalemia: Plan: Replenish as needed ? Checking magnesium, morning BMP ?Plan to discharge with p.o. magnesium and potassium (3) Elevated bilirubin: (4) Resistant hypertension: Plan: Continue amlodipine, lisinopril, Coreg as needed ? Discussed with patient likely be giving her clonidine to use on a as needed basis as she checks her blood pressure often at home ?Renal and aldosterone levels pending ? Total cortisol normal (5) Long QT interval: Plan: Elevated, first EKG on febrile was 490 ? EKG on admission last night showed TC of 515 ? Repeat EKG today shows QTc of 488 ? Checking electrolytes in the morning, she is not on any QT prolonging drugs ? Morning EKG ? We will likely refer to cardiology in the outpatient for further management. Plan Patient with history of resistant hypertension has developed uncontrolled hypertension for last 1 week. Amlodipine was added on last Saturday without much improvement. Patient presented to ER for accelerated hypertension along with mild headache. In the ER her labs showed hyponatremia and hypokalemia. Her labs from previous ER visit on 04/07/2022 showed normal sodium and potassium level. Concern for hyperaldosteronism is low since her labs were normal previously and did not have hypokalemia in the past. List of medication does include hydrochlorothiazide which can likely contribute to hyponatremia and hypokalemia. Patient also has changed her diet and has been avoiding salt and increase water intake likely causing hyponatremia. She did mention having stress with her being diagnosed with cancer for a year now. Given recently accelerated hypertension will send for aldosterone renin level in the morning and need to be followed by her primary care provider. She might requirefurther work-up for secondary hypertension if remains uncontrolled. Replace potassium. She received normal saline in the ER and will recheck sodium level. Avoid rapid correction since she is not symptomatic. Check urine sodium and osmolality. Check cortisol level. TSH was normal 10 days ago. Devious EKG showing left bundle branch block and will obtain echocardiogram to assess LV function and wall motion given her uncontrolled hypertension. Will increase dose of amlodipine to 10 mg and continue carvedilol and lisinopril. Hold hydrochlorothiazide. Continue statin. Her labs also showing elevated total bilirubin which has been chronically elevated. Suspecting Gilbert syndrome. Wewill check total and direct bilirubin in morning labs. She denies abdominal pain. She might benefit from ambulatory BP monitoring while at home to accurately measure blood pressure. DVT prophylaxis. At this time she will require less than 2 midnights of hospital stay as expecting her sodium and potassium level to improve and since she has chronic hypertension. She will be kept under observation. Documented By: Stephane Juárez DO 04/18/22 1554 Signed By: <Electronically signed by Stephane Juárez DO> 04/18/22 1600 [facility] Work Phone: 1(412) 853-905603-01-2023 History and physical note Author Selma Almendarez [facility] April 17, 2022 11:50pm Note Date/Time April 17, 2022 11:28pm [facility] [address] [place] [address] Hospitalist H&P Signed Patient: Phan Kessler MR#: [id number] : 1955 Acct:[id number] Age/Sex: 66 / F Adm Date: 3 Loc: Room: [address] [place] [address] Type: ADM INOo Attending Dr: Selma Almendarez MD Copies to: GEORGE Higgins MD~ HPI DATE OF EXAMINATION: 04/17/22 CHIEF COMPLAINT: Elevated blood pressure and headache. HISTORY OF PRESENT ILLNESS: Patient is a pleasant 66-year-old female with past medical history of hypertension diagnosed around 42 years ago and hyperlipidemia. Patient presented to ER with complaint of uncontrolled hypertension and headache. She has been in her normal state of health and had wellbeing checkup a week ago and was noted to have elevated blood pressure. Since then she has been checking herblood pressure at home and noticed to be on the higher range. She went to see anurse practitioner and amlodipine was added and continues to have elevated bloodpressure. She is also modified her diet and has been avoiding salt altogether and trying to lose weight. Due to elevated blood pressure she presented to the emergency room. In the ER noted to have blood pressure in 180s systolic and herlabs showed sodium of 123, potassium 3.3 which were normal on 04/07/2022. He wasseen in the emergency room on 04/07 for elevated blood pressure and was discharged home. Patient denies recent infection, fever, chills, chest pain, shortness of breath, cough, visual disturbance or numbness/weakness in extremities. Mentioned having mild headache today. She did mention having stress at home as her has been diagnosed with cancer for a year now. Denies change in medications or taking any new supplement. She has been on carvedilol, atorvastatin and lisinopril/hydrochlorothiazide for long period of time. She has moderate intake of coffee but denies smoking or drinking alcohol or any other recreational drug. She did mention father of [place] at the age of39 and blood pressure runs in the family. During my evaluation she was sitting comfortably and complaining of mild headache. Her EKG from 04/10/2022 showed left bundle branch block with no prior EKG to compare. She denies any known history of heart disease. Review of Systems Review of Systems All other systems reviewed & are negative unless noted below or in HPI PMFSH Vaccinated for COVID-19?: Yes Medical History (Updated 04/17/22 @ 23:43 by Selma Almendarez MD) Hypertension Surgical History History of Family History Father Heart disease Other Hypertension Social History Smoking Status: Never smoker Substance Use Type: None Meds Medications and Allergies Allergies No Known Allergies Allergy (Verified 04/17/22 18:54) Home Medications atorvastatin 20 mg tablet 20 mg PO DAILY 04/10/22 [History Confirmed 04/17/22] carvedilol 25 mg tablet 25 mg PO BID 04/10/22 [History Confirmed 04/17/22] lisinopril 20 mg-hydrochlorothiazide 25 mg tablet 1 tab PO DAILY 04/10/22 [History Confirmed 04/17/22] amlodipine 5 mg tablet 5 mg PO HS 04/17/22 [History Confirmed 04/17/22] Exam Physical Exam Vital Signs: Temp Pulse Resp BP Pulse Ox O2 Del Method 98.3 F 70 18 183/75 H 99 Room Air 04/17/22 18:59 04/17/22 22:22 04/17/22 22:14 04/17/22 22:14 04/17/22 22:14 04/17/22 22:14 Const General: cooperative Orientation: alert, awake and oriented x3 HEENT Head: normal to inspection, no palpable skull fracture, normocephalic and atraumatic Ears: hearing grossly normal bilaterally Nose: external nose normal Face and sinus: normal facial exam Eyes Pupils: PERRL EOM: EOM intact bilaterally and No nystagmus Neck Neck: normal visual inspection and full ROM Resp Effort & Inspection: normal respiratory effort and able to speak in complete sentences Auscultation: no rales, no rhonchi and no wheezes Cardio Rate: regular rate Rhythm: regular rhythm Heart Sounds: S1 normal and S2 normal GI Palpation: soft, not firm, no guarding and nontender Auscultation: normal bowel sounds Musc Cervical Spine: normal cervical lordosis and cervical ROM normal Neuro General: patient alert, patient awake, patient oriented x3, moves all extremities and no focal motor deficits Cranial Nerves: CN's II-XII intact bilaterally Cognition: normal cognition Speech: speech normal Motor: muscle tone normal throughout and strength 5/5 throughout Sensory Exam: no sensory deficits noted Extrem General: no clubbing, cyanosis or edema and no calf tenderness Psych Appearance: grossly normal Results Lab Results Labs: Laboratory Last Values Corrected WBC 7.5 X10E3/uL (3.8-11.6) 04/17/22 21: Uncorrected WBC Count 7.5 x10E3/uL (3.8-11.6) 04/17/22 21: RBC 4.91 X10E6/uL (3.60-5.00) 04/17/22: Hgb 15.2 g/dL (11.8-15.4) 04/17/22: Hct 45.0 % (34.0-46.4) 04/17/22: MCV 91.6 fl (80-100) 04/17/22 21: MCH 30.9 pg (24.7-34.3) 04/17/22 21: MCHC 33.8 g/dL (32.0-35.0) 04/17/22: RDW 12.2 % (11.9-15.3) 04/17/22 21: Plt Count 242 x10E3/uL (150-450) 04/17/22 21: MPV 8.2 fl (6.3-10.7) 04/17/22: Neut % (Auto) 70.0 % (.) 04/17/22 21: Lymph % (Auto) 18.4 % (.) 04/17/22: Zapata % (Auto) 10.8 % (.) 04/17/22: Eos % (Auto) 0.4 % (.) 04/17/22: Baso % (Auto) 0.4 % (.) 04/17/22: Nucleat RBC Rel Count 0.1 /100 WBC (0-0.5) 04/17/22: Neut # (Auto) 5.3 x10E3/uL (1.8-7.7) 04/17/22 21: Lymph # (Auto) 1.4 x10E3/uL (1.00-4.8) 04/17/22 21: Zapata # (Auto) 0.8 x10E3/uL (0.0-0.8) 04/17/22 21: Eos # (Auto) 0.0 x10E3/uL (0.0-0.45) 04/17/22 21: Baso # (Auto) 0.0 x10E3/uL (0.0-0.2) 04/17/22 21: Monocyte Dist Width 20.03 % (0.00-20.00) H 04/17/22 21:26 PHA Creatinine Clear 70.81 04/17/22 21: Sodium 123 mmol/L (136-146) L* 04/17/22 21: Potassium 3.3 mmol/L (3.5-5.1) L 04/17/22 21: Chloride 80 mmol/L (95-114) L 04/17/22 21: Carbon Dioxide 25.5 mmol/L (22.0-30.0) 04/17/22 21: Anion Gap 20.8 mEq/L (6.0-15.0) H 04/17/22 21:26 BUN 11 mg/dL (9-23) 04/17/22 21: Creatinine 0.64 mg/dL (0.44-1.03) 04/17/22 21:26 Est GFR ( Amer) > 60 mL/Min 04/17/22 21: Est GFR (Non-Af Amer) > 60 mL/Min 04/17/22 21: Glucose 107 mg/dL (70-100) H 04/17/22 21: Calcium 9.3 mg/dL (8.2-10.2) 04/17/22 21: Total Bilirubin 1.9 mg/dL (0.3-1.2) H 04/17/22 21:26 AST 22 U/L (10-42) 04/17/22 21: ALT 29 U/L (10-60) 04/17/22 21:26 Alkaline Phosphatase 66 U/L (32-92) 04/17/22 21:26 Troponin I High Sens 8 pg/mL (0-15) 04/17/22 21:26 Total Protein 7.2 gm/dL (6.1-7.9) 04/17/22 21:26 Albumin 4.2 gm/dL (3.2-5.5) 04/17/22 21:26 Globulin 3.0 gm/dL 04/17/22 21:26 Albumin/Globulin Ratio 1.4 04/17/22 21:26 A&P - Hospitalist Assessment/Plan (1) Acute hyponatremia: (2) Hypokalemia: (3) Elevated bilirubin: (4) Resistant hypertension: Plan Patient with history of resistant hypertension has developed uncontrolled hypertension for last 1 week. Amlodipine was added on last Saturday without much improvement. Patient presented to ER for accelerated hypertension along with mild headache. In the ER her labs showed hyponatremia and hypokalemia. Her labs from previous ER visit on 04/07/2022 showed normal sodium and potassium level. Concern for hyperaldosteronism is low since her labs were normal previously and did not have hypokalemia in the past. List of medication does include hydrochlorothiazide which can likely contribute to hyponatremia and hypokalemia. Patient also has changed her diet and has been avoiding salt and increase water intake likely causing hyponatremia. She did mention having stress with her being diagnosed with cancer for a year now. Given recently accelerated hypertension will send for aldosterone renin level in the morning and need to be followed by her primary care provider. She might requirefurther work-up for secondary hypertension if remains uncontrolled. Replace potassium. She received normal saline in the ER and will recheck sodium level. Avoid rapid correction since she is not symptomatic. Check urine sodium and osmolality. Check cortisol level. TSH was normal 10 days ago. Devious EKG showing left bundle branch block and will obtain echocardiogram to assess LV function and wall motion given her uncontrolled hypertension. Will increase dose of amlodipine to 10 mg and continue carvedilol and lisinopril. Hold hydrochlorothiazide. Continue statin. Her labs also showing elevated total bilirubin which has been chronically elevated. Suspecting Gilbert syndrome. Wewill check total and direct bilirubin in morning labs. She denies abdominal pain. She might benefit from ambulatory BP monitoring while at home to accurately measure blood pressure. DVT prophylaxis. At this time she will require less than 2 midnights of hospital stay as expecting her sodium and potassium level to improve and since she has chronic hypertension. She will be kept under observation. Documented By: Selma Almendarez MD 04/17/22 5241 Signed By: <Electronically signed by Selma Almendarez MD> 04/17/22 2350 [facility] Work Phone: 1([phone]) 149-169402-21-2023 Hospital Discharge instructions Additional Instructions Follow your blood pressures at home for the next week and write these down Follow-up with your private physician in 1 to 2 weeks. [facility] Work Phone: [phone]) 610-520102-20-2023 Evaluation note* Encounter Date Diagnosis Assessment Notes Treatment Notes Treatment Clinical Notes Mar, Medicare annual wellness visit, initial (ICD-10 - Z00.00) Personalized health advice was given to the beneficiary including a written plan for screenings discussed and provided. Advanced care planning reviewed and/or information given as requested. The above visit was performed by Nelsy SAVAGE, under direct supervision of Becky Holder, DNP,BUTTONHOLE FACER,WHEEL LOADER OPERATOR. Document reviewed and amended by provider signed below. Mar, Essential (primary) hypertension (ICD-10 - I10) Blood pressure elevated in the office; however, she has an element of white coat syndrome. She checks her bp at home and they are always usually less than 140/90. Notify office should BP > 140/90. Will continue Lisinopril/HCTZ 20/25 mg daily and Coreg 25 mg BID. Recent lab work reviewed with patient. Decrease NSAID intake to decrease bilirubin level. Take medication as prescribed, keep follow up appointments, get any testing that's been ordered done in a timely fashion. Do not smoke. Call if any questions or problems. For Hypertension: Patient is advised to work on healthy diet choices and appropriate servings, weight control, regular exercise as directed, and salt avoidance. Monitor blood pressures at home and call if above target. Mar, Elevated blood pressure reading with diagnosis of hypertension (ICD-10 - I10) See above treatment plan. Mar, Mixed hyperlipidemia (ICD-10 - E78.2) Lab work reviewed with patient. Continue Lipitor 20 mg daily. Will continue current treatment plan. , Take medication as prescribed, keep follow up appointments, get any testing that's been ordered done in a timely fashion. Do not smoke. Call if any questions or problems. For Cholesterol: Patient is advised to work on healthy diet choices and appropriate servings, weight control, regular exercise as directed, and reduce fat intake. Mar, Prediabetes (ICD-10 - R73.09) Hgba1c is very close to being type II diabetes today. Discussed this with patient. She declines medication or referral to weight management at this time. Weight management strategies reviewed with her and she will start implementing these. Patient is advised to work on healthy diet choices and appropriate servings, weight control, regular exercise as directed, and reduce fat intake. Follow up in 3 months to recheck hgba1c. Mar, BMI 33.0-33.9,adult (ICD-10 - Z68.33) Patient is advised to work on healthy diet choices and appropriate servings, weight control, regular exercise as directed, reduced fat intake, and salt avoidance. Patient voiced understanding of this and agrees to this plan. Mar, Screening for colon cancer (ICD-10 - Z12.11) Patient due for screening colonoscopy, but would rather have cologuard. No personal history or family history of colon cancer. Cologuard ordered today. Mar, Encounter for screening mammogram for malignant neoplasm of breast (ICD-10 - Z12.31) Patient is due for her routine yearly screening mammogram. Screening mammogram ordered today. Mar, Screening for osteoporosis (ICD-10 - Z13.820) Patient is postmenopausal and therefore at risk for osteoporosis. Risks and benefits of DEXA scan discussed with patient today. She is due for DEXA scan. Patient is interested in getting a DEXA scan today. DEXA scan ordered today. Mar, Post-menopausal (ICD-10 - Z78.0) Patient is postmenopausal and therefore at risk for osteoporosis. Risks and benefits of DEXA scan discussed with patient today. She is due for DEXA scan. Patient is interested in getting a DEXA scan today. DEXA scan ordered today. [employer] Other 02-02-2023 Evaluation note* Encounter Date Diagnosis Assessment Notes Treatment Notes Treatment Clinical Notes Mar, Essential (primary) hypertension (ICD-10 - I10) Mar, Mixed hyperlipidemia (ICD-10 - E78.2) Mar, Prediabetes (ICD-10 - R73.09) [employer] Other 01-17-2022 Evaluation note* Encounter Date Diagnosis Assessment Notes Treatment Notes Treatment Clinical Notes Feb, Essential (primary) hypertension (ICD-10 - I10) Blood pressure well controlled. Lab results reviewed with patient. Will continue current treatment plan. Continue Lisinopril/HCTZ 20/25 mg daily and Coreg 25 mg BID. Refills sent today. , Take medication as prescribed, keep follow up appointments, get any testing that's been ordered done in a timely fashion. Do not smoke. Call if any questions or problems. For Hypertension: Patient is advised to work on healthy diet choices and appropriate servings, weight control, regular exercise as directed, and salt avoidance. Monitor blood pressures at home and call if above target. Feb, Well adult exam (ICD-10 - Z00.00) Routine lab work was just completed. This was reviewed with patient today. Continue to follow with Dr. Menendez for pap/pelvics, mammograms and DEXAs (although both of these were ordered today). Follows with the eye doctor and dentist routinely (overdue, she will schedule). Cologuard order sent. Patient is advised to work on healthy diet choices and appropriate servings, weight control, regular exercise as directed, reduced fat intake, and salt avoidance. Patient voiced understanding of this and agrees to this plan. Feb, Mixed hyperlipidemia (ICD-10 - E78.2) Lab work reviewed with patient. Refills sent today. Continue Lipitor 20 mg daily. Will continue current treatment plan. , Take medication as prescribed, keep follow up appointments, get any testing that's been ordered done in a timely fashion. Do not smoke. Call if any questions or problems. For Cholesterol: Patient is advised to work on healthy diet choices and appropriate servings, weight control, regular exercise as directed, and reduce fat intake. Feb, Prediabetes (ICD-10 - R73.09) Hgba1c shows good control of prediabetes. Patient is advised to work on healthy diet choices and appropriate servings, weight control, regular exercise as directed, and reduce fat intake. 17 Lazaro, 2022 BMI 33.0-33.9,adult (ICD-10 - Z68.33) Patient is advised to work on healthy diet choices and appropriate servings, weight control, regular exercise as directed, reduced fat intake, and salt avoidance. Patient voiced understanding of this and agrees to this plan. Feb, Elevated bilirubin (ICD-10 - R17) Recent lab work showed mild elevation in bilirubin. Will recheck this. Feb, Screening for colon cancer (ICD-10 - Z12.11) Patient due for screening colonoscopy, but would rather have cologuard. No personal history or family history of colon cancer. Cologuard ordered today. Feb, Encounter for screening mammogram for malignant neoplasm of breast (ICD-10 - Z12.31) Patient is due for her routine yearly screening mammogram. Screening mammogram ordered today. Feb, Screening for osteoporosis (ICD-10 - Z13.820) Patient is postmenopausal and therefore at risk for osteoporosis. Risks and benefits of DEXA scan discussed with patient today. She is due for DEXA scan. Patient is interested in getting a DEXA scan today. DEXA scan ordered today. Feb, Post-menopausal (ICD-10 - Z78.0) Patient is postmenopausal and therefore at risk for osteoporosis. Risks and benefits of DEXA scan discussed with patient today. She is due for DEXA scan. Patient is interested in getting a DEXA scan today. DEXA scan ordered today. [employer] Other Discharge summary Author Stephane Juárez [facility] April 20, 2022 3:32pm Note Date/Time April 20, 2022 3:29 pm [facility] [address] [place] [address] Discharge Summary Signed Patient: Phan Kessler MR#: [id number] : 1955 Acct:[id number] Age/Sex: 66 / F Adm Date: 3 Loc: 3T Room: [address] [place] [address]: Stephane Juárez DO Copies to: GEORGE Higgins, ~ Providers Date of Admission: 04/17/22 Date of Discharge: 04/19/22 Discharging Provider: Stephnae Juárez Primary Care Provider: Becky Holder Discharge Diagnosis (1) Acute hyponatremia: (2) Hypokalemia: (3) Elevated bilirubin: (4) Resistant hypertension: (5) Long QT interval: Final Diagnosis Final Discharge Diagnosis: As above Summary Hospital Course Hospital course: Miss Kessler was admitted to hospital the afternoon of April 17 with a chief complaint of hypertension and headache, she has had issues with hypertension on and off throughout her whole life and most recent with her headache came to hospital. Of note her PCP did recently increase her amlodipine from 5 mg to 10 mg daily, she was on carvedilol 20 mg twice daily as well as HCTZ/lisinopril combination pill. In the ED her blood pressure was 195/90 initially, on chart review she has numerous other blood pressures in the 190 and a Couple above 210. She was admitted to hospital for work-up. Echocardiogram was essentially normal with a EF 55 to 60%, LV ventricle was normal, no wall motion abnormalities and there is only mild diastolic dysfunction seen. Initially her potassium was low at three-point 3 repeat was 3.0 twice, she did have a normal magnesium. She received oral supplementation of potassium and IV magnesium. While she was admitted she also had low sodium in the ED which was attributed tohigh water intake and low salt intake and attempt to lose weight, due to this though her HCTZ was held. Lecture lites normalized while she was admitted, reading and aldosterone levels were sent to rule out secondary hypertension. Total cortisol level was normal. The patient's blood pressure normalized as mentioned, her lisinopril was continued at discharge at 20 mg daily, Coreg 25 mgtwice daily as well as amlodipine 10 mg daily, I did continue to hold her HCTZ upon discharge electrolyte abnormalities. She did receive prescription for magnesium 400 mg daily. Of note, her initial EKG showed prolonged QT of 490, the peak QT C interval was 515, the morning of discharge it was 478. I did review this with her and the patient was already in the process of arranging cardiology follow-up with a voice pathologist in [place] prior to her admission. I did encourage her to continue to pursue follow-up and she stated that she did have a prolonged QT with being on no QT prolongation medications. This was explained to her in layman's terms and she understood. Condition Condition at Discharge: Stable Time Spent with Patient Time spent providing/coordinating discharge services (# min): 25 Diagnostic Studies Completed and Pending Studies Pending studies at discharge: 04/18/22 05:36 Aldosterone IN AM Renin Activity IN AM Exam Physical Exam Vital Signs: Temp Pulse Resp BP Pulse Ox O2 Del Method 97.7 F 75 18 121/80 98 Room Air 04/19/22 08:00 04/19/22 08:00 04/19/22 08:00 04/19/22 08:00 04/19/22 08:00 04/19/22 08:00 Narrative: General: Awake alert, no acute distress HEENT: head atraumatic, normocephalic, moist mucous membranes Neck: supple no masses, no lymphadenopathy CVS: regular rate and rhythm, no murmurs or gallops Respiratory: clear to auscultation bilaterally, no wheezing or crackles, symmetric expansion GI: soft, nondistended, nontender, positive bowel sounds with no organomegaly Extremity: moves all extremities, no restrictions of movements, no calf tenderness, no edema Neuro: AOx3, CN II-VII intact. Moves all extremities in all planes of motion. Skin: dry, intact no rashes or lesions Discharge Plan Discharge Plan Patient Disposition: Home Activity: No Activity Restriction Diet: Low-Sodium and Low-Cholesterol Additional Instructions: Current medications - Lisinopril 20mg daily - Amlodipine 10mg daily - Coreg 25mg BID - Magnesium oxide 400mg daily Have repeat blood work done on SaturdayApril 23. Please see Becky larios f/u on Renin and Aldosterone blood tests performed in the hospital. Please call and schedule an appointment with your established [employer] Department Supervisor. Instructions: DASH Diet, Lisinopril, Magnesium Oxide, Long QT Syndrome Prescriptions: New magnesium oxide 400 mg (241.3 mg magnesium) tablet 400 mg PO DAILY Qty: 90 0RF lisinopril 20 mg tablet 20 mg PO DAILY Qty: 90 0RF Continued carvedilol 25 mg tablet 25 mg PO BID atorvastatin 20 mg tablet 20 mg PO DAILY Changed amlodipine 5 mg tablet 10 mg PO HS Qty: 90 0RF Patient Comments: TAKE 1 TABLET BY MOUTH AT NIGHT Discontinued lisinopril-hydrochlorothiazide 20-25 mg tablet 1 tab PO DAILY Other Ambulatory Orders: Basic Metabolic Panel (Routine) Timeframe: [id number] Location: Determined by Patient Ordered By: Stephane Juárez Follow Up: Becky Holder DNP [Primary Care Provider] - 04/20/22 9:00 am (You have been scheduled for a follow up appointment for the following date and time, please call to reschedule if needed.) Documented By: Stephane Juárez DO 04/20/22 1527 Signed By: <Electronically signed by Stephane Juárez, > 04/20/22 1532 [facility] Work Phone: Evaluation noteNo assessment information available [facility] Work Phone: evaluation note* Diagnosis Onset Date Resolution Status Acute hyponatremia acute Elevated bilirubin acute Hypertension acute Hypokalemia acute Resistant hypertension acute [facility] Work Phone: evaluation note* Diagnosis Onset Date Resolution Status Acute hyponatremia acute Elevated bilirubin acute Hypertension acute Hypokalemia acute Long QT interval acute Resistant hypertension acute [facility] Work Phone: Evaluation noteNo [employer] Other History and physical note Author Selma Almendarez [facility] April 17, 2022 11:50pm Note Date/Time April 17, 2022 11:28pm [facility] [address] [place] [address] Hospitalist H&P Signed Patient: Phan Kessler MR#: [id number] : 1955 Acct:[id number] Age/Sex: 66 / F Adm Date: 3 Loc: Room: [address] [place] [address] Type: ADM INOo Attending Dr: Selma Almendarez MD Copies to: GEORGE Higgins MD~ HPI DATE OF EXAMINATION: 04/17/22 CHIEF COMPLAINT: Elevated blood pressure and headache. HISTORY OF PRESENT ILLNESS: Patient is a pleasant 66-year-old female with past medical history of hypertension diagnosed around 42 years ago and hyperlipidemia. Patient presented to ER with complaint of uncontrolled hypertension and headache. She has been in her normal state of health and had wellbeing checkup a week ago and was noted to have elevated blood pressure. Since then she has been checking herblood pressure at home and noticed to be on the higher range. She went to see anurse practitioner and amlodipine was added and continues to have elevated bloodpressure. She is also modified her diet and has been avoiding salt altogether and trying to lose weight. Due to elevated blood pressure she presented to the emergency room. In the ER noted to have blood pressure in 180s systolic and herlabs showed sodium of 123, potassium 3.3 which were normal on 04/07/2022. He wasseen in the emergency room on 04/07 for elevated blood pressure and was discharged home. Patient denies recent infection, fever, chills, chest pain, shortness of breath, cough, visual disturbance or numbness/weakness in extremities. Mentioned having mild headache today. She did mention having stress at home as her has been diagnosed with cancer for a year now. Denies change in medications or taking any new supplement. She has been on carvedilol, atorvastatin and lisinopril/hydrochlorothiazide for long period of time. She has moderate intake of coffee but denies smoking or drinking alcohol or any other recreational drug. She did mention father of [place] at the age of39 and blood pressure runs in the family. During my evaluation she was sitting comfortably and complaining of mild headache. Her EKG from 04/10/2022 showed left bundle branch block with no prior EKG to compare. She denies any known history of heart disease. Review of Systems Review of Systems All other systems reviewed & are negative unless noted below or in HPI PMFSH Vaccinated for COVID-19?: Yes Medical History (Updated 04/17/22 @ 23:43 by Selma Almendarez MD) Hypertension Surgical History History of Family History Father Heart disease Other Hypertension Social History Smoking Status: Never smoker Substance Use Type: None Meds Medications and Allergies Allergies No Known Allergies Allergy (Verified 04/17/22 18:54) Home Medications atorvastatin 20 mg tablet 20 mg PO DAILY 04/10/22 [History Confirmed 04/17/22] carvedilol 25 mg tablet 25 mg PO BID 04/10/22 [History Confirmed 04/17/22] lisinopril 20 mg-hydrochlorothiazide 25 mg tablet 1 tab PO DAILY 04/10/22 [History Confirmed 04/17/22] amlodipine 5 mg tablet 5 mg PO HS 04/17/22 [History Confirmed 04/17/22] Exam Physical Exam Vital Signs: Temp Pulse Resp BP Pulse Ox O2 Del Method 98.3 F 70 18 183/75 H 99 Room Air 04/17/22 18:59 04/17/22 22:22 04/17/22 22:14 04/17/22 22:14 04/17/22 22:14 04/17/22 22:14 Const General: cooperative Orientation: alert, awake and oriented x3 HEENT Head: normal to inspection, no palpable skull fracture, normocephalic and atraumatic Ears: hearing grossly normal bilaterally Nose: external nose normal Face and sinus: normal facial exam Eyes Pupils: PERRL EOM: EOM intact bilaterally and No nystagmus Neck Neck: normal visual inspection and full ROM Resp Effort & Inspection: normal respiratory effort and able to speak in complete sentences Auscultation: no rales, no rhonchi and no wheezes Cardio Rate: regular rate Rhythm: regular rhythm Heart Sounds: S1 normal and S2 normal GI Palpation: soft, not firm, no guarding and nontender Auscultation: normal bowel sounds Musc Cervical Spine: normal cervical lordosis and cervical ROM normal Neuro General: patient alert, patient awake, patient oriented x3, moves all extremities and no focal motor deficits Cranial Nerves: CN's II-XII intact bilaterally Cognition: normal cognition Speech: speech normal Motor: muscle tone normal throughout and strength 5/5 throughout Sensory Exam: no sensory deficits noted Extrem General: no clubbing, cyanosis or edema and no calf tenderness Psych Appearance: grossly normal Results Lab Results Labs: Laboratory Last Values Corrected WBC 7.5 X10E3/uL (3.8-11.6) 04/17/22 21:26 Uncorrected WBC Count 7.5 x10E3/uL (3.8-11.6) 04/17/22 21: RBC 4.91 X10E6/uL (3.60-5.00) 04/17/22 21:26 Hgb 15.2 g/dL (11.8-15.4) 04/17/22 21:26 Hct 45.0 % (34.0-46.4) 04/17/22 21: MCV 91.6 fl (80-100) 04/17/22 21: MCH 30.9 pg (24.7-34.3) 04/17/22: MCHC 33.8 g/dL (32.0-35.0) 04/17/22: RDW 12.2 % (11.9-15.3) 04/17/22: Plt Count 242 x10E3/uL (150-450) 04/17/22 21: MPV 8.2 fl (6.3-10.7) 04/17/22: Neut % (Auto) 70.0 % (.) 04/17/22: Lymph % (Auto) 18.4 % (.) 04/17/22: Z[place] % (Auto) 10.8 % (.) 04/17/22: Eos % (Auto) 0.4 % (.) 04/17/22: Baso % (Auto) 0.4 % (.) 04/17/22: Nucleat RBC Rel Count 0.1 /100 WBC (0-0.5) 04/17/22: Neut # (Auto) 5.3 x10E3/uL (1.8-7.7) 04/17/22: Lymph # (Auto) 1.4 x10E3/uL (1.00-4.8) 04/17/22: [place] # (Auto) 0.8 x10E3/uL (0.0-0.8) 04/17/22: Eos # (Auto) 0.0 x10E3/uL (0.0-0.45) 04/17/22: Baso # (Auto) 0.0 x10E3/uL (0.0-0.2) 04/17/22: Monocyte Dist Width 20.03 % (0.00-20.00) H 04/17/22 21: PHA Creatinine Clear 70.81 04/17/22 21: Sodium 123 mmol/L (136-146) L* 04/17/22 21: Potassium 3.3 mmol/L (3.5-5.1) L 04/17/22 21:26 Chloride 80 mmol/L (95-114) L 04/17/22 21:26 Carbon Dioxide 25.5 mmol/L (22.0-30.0) 04/17/22 21: Anion Gap 20.8 mEq/L (6.0-15.0) H 04/17/22 21:26 BUN 11 mg/dL (9-23) 04/17/22 21: Creatinine 0.64 mg/dL (0.44-1.03) 04/17/22 21:26 Est GFR ( Amer) > 60 mL/Min 04/17/22 21:26 Est GFR (Non-Af Amer) > 60 mL/Min 04/17/22 21: Glucose 107 mg/dL (70-100) H 04/17/22 21: Calcium 9.3 mg/dL (8.2-10.2) 04/17/22 21: Total Bilirubin 1.9 mg/dL (0.3-1.2) H 04/17/22 21:26 AST 22 U/L (10-42) 04/17/22 21:26 ALT 29 U/L (10-60) 04/17/22 21: Alkaline Phosphatase 66 U/L (32-92) 04/17/22 21:26 Troponin I High Sens 8 pg/mL (0-15) 04/17/22 21: Total Protein 7.2 gm/dL (6.1-7.9) 04/17/22 21: Albumin 4.2 gm/dL (3.2-5.5) 04/17/22 21: Globulin 3.0 gm/dL 04/17/22 21:26 Albumin/Globulin Ratio 1.4 04/17/22 21:26 A&P - Hospitalist Assessment/Plan (1) Acute hyponatremia: (2) Hypokalemia: (3) Elevated bilirubin: (4) Resistant hypertension: Plan Patient with history of resistant hypertension has developed uncontrolled hypertension for last 1 week. Amlodipine was added on last Saturday without much improvement. Patient presented to ER for accelerated hypertension along with mild headache. In the ER her labs showed hyponatremia and hypokalemia. Her labs from previous ER visit on 04/07/2022 showed normal sodium and potassium level. Concern for hyperaldosteronism is low since her labs were normal previously and did not have hypokalemia in the past. List of medication does include hydrochlorothiazide which can likely contribute to hyponatremia and hypokalemia. Patient also has changed her diet and has been avoiding salt and increase water intake likely causing hyponatremia. She did mention having stress with her being diagnosed with cancer for a year now. Given recently accelerated hypertension will send for aldosterone renin level in the morning and need to be followed by her primary care provider. She might requirefurther work-up for secondary hypertension if remains uncontrolled. Replace potassium. She received normal saline in the ER and will recheck sodium level. Avoid rapid correction since she is not symptomatic. Check urine sodium and osmolality. Check cortisol level. TSH was normal 10 days ago. Devious EKG showing left bundle branch block and will obtain echocardiogram to assess LV function and wall motion given her uncontrolled hypertension. Will increase dose of amlodipine to 10 mg and continue carvedilol and lisinopril. Hold hydrochlorothiazide. Continue statin. Her labs also showing elevated total bilirubin which has been chronically elevated. Suspecting Gilbert syndrome. Wewill check total and direct bilirubin in morning labs. She denies abdominal pain. She might benefit from ambulatory BP monitoring while at home to accurately measure blood pressure. DVT prophylaxis. At this time she will require less than 2 midnights of hospital stay as expecting her sodium and potassium level to improve and since she has chronic hypertension. She will be kept under observation. Documented By: Selma Almendarez MD 04/17/22 2321 Signed By: <Electronically signed by Selma Almendarez MD> 04/17/22 5741 [facility] Work Phone: History general Narrative - Reported* Type Description Date Medical History Hyperlipidemia Medical History Hypertension Medical History Prediabetes Surgical History C SECTION X 2 Surgical History tonsillectomy Hospitalization History childbirth [employer] Other History general Narrative - Reported* Type Description Date Medical History Hyperlipidemia Medical History Hypertension Medical History Prediabetes Surgical History C SECTION X 2 Surgical History tonsillectomy Hospitalization History childbirth Hospitalization History HYPERTENSION 03/2022 [employer] Other Hospital Discharge instructions Additional Instructions Current medications - Lisinopril 20mg daily - Amlodipine 10mg daily - Coreg 25mg BID - Magnesium oxide 400mg daily Have repeat blood work done on SaturdayApril 23. Please see Becky larios f/u on Renin and Aldosterone blood tests performed in the hospital. Please call and schedule an appointment with your established [employer] Department Supervisor. [facility] Work Phone: Progress note Author Stephane Juárez [facility] April 18, 2022 4:00pm Note Date/Time April 18, 2022 4:00 pm [facility] [address] [place] [address] Hospitalist Progress Note Signed Patient: Phan Kessler MR#: [id number] : 1955 Acct:[id number] Age/Sex: 66 / F Adm Date: 3 Loc: Room: [address] [place] [address] Type: ADM INOo Attending Dr: Stephane Juárez DO Copies to: ~ Date of Service: 04/18/2022 Subjective Subjective Narrative: Seen and evaluated at bedside, states she has had elevated blood pressure on andoff for most of her life, most recently the amlodipine 10mg was added to her medications. HCTZ held as noted. Her QTc was prolonged on initial and repeat EKG, >500 and 488 later on today. Exam Physical Exam Vital Signs: Temp Pulse Resp BP Pulse Ox O2 Del Method 97.2 F L 75 16 137/83 98 Room Air 04/18/22 00:30 04/18/22 11:12 04/18/22 11:12 04/18/22 11:12 04/18/22 11:12 04/18/22 11:12 Narrative: General: Awake alert, no acute distress HEENT: head atraumatic, normocephalic, moist mucous membranes Neck: supple no masses, no lymphadenopathy CVS: regular rate and rhythm, no murmurs or gallops Respiratory: clear to auscultation bilaterally, no wheezing or crackles, symmetric expansion GI: soft, nondistended, nontender, positive bowel sounds with no organomegaly Extremity: moves all extremities, no restrictions of movements, no calf tenderness, no edema Neuro: AOx3, CN II-VII intact. Moves all extremities in all planes of motion. Skin: dry, intact no rashes or lesions Objective Lab Results 04/17/22 21:26 04/18/22 05:36 Meds Allergies and Active Meds Allergies No Known Allergies Allergy (Verified 04/17/22 18:54) Active Meds: Active Medications Generic Name Dose Route Start Last Admin Trade Name Sloanq PRN Reason Stop Dose Admin Acetaminophen 650 mg 04/17/22 23:50 04/18/22 01:59 Acetaminophen 325 Mg Tablet PO 04/17/23 23:49 650 mg Q6HR PRN Administration Pain Scale 1 - 3 or fever Amlodipine Besylate 10 mg 04/18/22 22:00 Amlodipine 10 Mg Tablet PO 04/18/23 08:59 QHS JUMA Atorvastatin Calcium 20 mg 04/18/22 21:00 Atorvastatin 20 Mg Tablet PO 04/18/23 20:59 QPM JUMA Carvedilol 25 mg 04/18/22 08:00 04/18/22 08:14 Carvedilol 25 Mg Tablet PO 04/18/23 07:59 25 mg BID.WITH.MEALS JUMA Administration Enoxaparin Sodium 40 mg 04/18/22 10:00 04/18/22 10:51 Enoxaparin 40 Mg/0.4 Ml Syringe SUBCUT 04/18/23 09:59 40 mg DAILY@10 JUMA Administration Hydralazine HCl 10 mg 04/17/22 23:50 Hydralazine 20 Mg/Ml Vial IV-PUSH 04/17/23 23:49 Q4H PRN Hypertension Labetalol HCl 5 mg 04/17/22 23:50 Labetalol 100 Mg/20 Ml Vial IV-PUSH 04/17/23 23:49 Q4H PRN Hypertension Lisinopril 20 mg 04/18/22 09:00 04/18/22 08:14 Lisinopril 20 Mg Tablet PO 04/18/23 08:59 20 mg BID JUMA Administration Potassium Chloride 40 meq 04/18/22 09:00 04/18/22 08:14 Potassium Chloride Er 20 Meq Tab.Er.Prt PO 04/18/23 08:59 40 meq DAILY JUMA Administration A&P - Hospitalist Assessment/Plan (1) Acute hyponatremia: Plan: ? Likely secondary to increase fluid intake with decrease salt intake recently and attempt to lose weight and control blood pressure ? I have been normal previously (2) Hypokalemia: Plan: Replenish as needed ? Checking magnesium, morning BMP ?Plan to discharge with p.o. magnesium and potassium (3) Elevated bilirubin: (4) Resistant hypertension: Plan: Continue amlodipine, lisinopril, Coreg as needed ? Discussed with patient likely be giving her clonidine to use on a as needed basis as she checks her blood pressure often at home ?Renal and aldosterone levels pending ? Total cortisol normal (5) Long QT interval: Plan: Elevated, first EKG on was 490 ? EKG on admission last night showed TC of 515 ? Repeat EKG today shows QTc of 488 ? Checking electrolytes in the morning, she is not on any QT prolonging drugs ? Morning EKG ? We will likely refer to cardiology in the outpatient for further management. Plan Patient with history of resistant hypertension has developed uncontrolled hypertension for last 1 week. Amlodipine was added on last Saturday without much improvement. Patient presented to ER for accelerated hypertension along with mild headache. In the ER her labs showed hyponatremia and hypokalemia. Her labs from previous ER visit on 04/07/2022 showed normal sodium and potassium level. Concern for hyperaldosteronism is low since her labs were normal previously and did not have hypokalemia in the past. List of medication does include hydrochlorothiazide which can likely contribute to hyponatremia and hypokalemia. Patient also has changed her diet and has been avoiding salt and increase water intake likely causing hyponatremia. She did mention having stress with her being diagnosed with cancer for a year now. Given recently accelerated hypertension will send for aldosterone renin level in the morning and need to be followed by her primary care provider. She might requirefurther work-up for secondary hypertension if remains uncontrolled. Replace potassium. She received normal saline in the ER and will recheck sodium level. Avoid rapid correction since she is not symptomatic. Check urine sodium and osmolality. Check cortisol level. TSH was normal 10 days ago. Devious EKG showing left bundle branch block and will obtain echocardiogram to assess LV function and wall motion given her uncontrolled hypertension. Will increase dose of amlodipine to 10 mg and continue carvedilol and lisinopril. Hold hydrochlorothiazide. Continue statin. Her labs also showing elevated total bilirubin which has been chronically elevated. Suspecting Gilbert syndrome. Wewill check total and direct bilirubin in morning labs. She denies abdominal pain. She might benefit from ambulatory BP monitoring while at home to accurately measure blood pressure. DVT prophylaxis. At this time she will require less than 2 midnights of hospital stay as expecting her sodium and potassium level to improve and since she has chronic hypertension. She will be kept under observation. Documented By: Stephane Juárez DO 04/18/22 1554 Signed By: <Electronically signed by Stephane Juárez DO> 04/18/22 1600 [facility] Work Phone: Progress note Author Stephane Juárez [facility] April 21, 2022 4:10pm Note Date/Time April 21, 2022 4:10 pm [facility] [address] [place] [address] Hospitalist Progress Note Signed Patient: Phan Kessler MR#: [id number] : 1955 Acct:[id number] Age/Sex: 66 / F Adm Date: 3 Loc: Room: [address] [place] [address] Type: DIS INOo Attending Dr: Stephane Juárez DO Copies to: ~ Date of Service: 04/19/2022 Subjective Subjective Narrative: Seen and evaluated at bedside, states she has had elevated blood pressure on andoff for most of her life, most recently the amlodipine 10mg was added to her medications. HCTZ held as noted. Her QTc was prolonged on initial and repeat EKG, >500 and 488 later on today. Patient has no complaints at this point time. States her headaches have gone away and her blood pressure has been fairly wellcontrolled today. She does have some concerns about going home today, she does already have the process started to have cardiology follow-up for her blood pressure in [place]. He follows closely with her provider Becky Jones. Exam Physical Exam Vital Signs: Temp Pulse Resp BP Pulse Ox O2 Del Method 97.7 F 75 18 121/80 98 Room Air 04/19/22 08:00 04/19/22 08:00 04/19/22 08:00 04/19/22 08:00 04/19/22 08:00 04/19/22 08:00 Narrative: General: Awake alert, no acute distress HEENT: head atraumatic, normocephalic, moist mucous membranes Neck: supple no masses, no lymphadenopathy CVS: regular rate and rhythm, no murmurs or gallops Respiratory: clear to auscultation bilaterally, no wheezing or crackles, symmetric expansion GI: soft, nondistended, nontender, positive bowel sounds with no organomegaly Extremity: moves all extremities, no restrictions of movements, no calf tenderness, no edema Neuro: AOx3, CN II-VII intact. Moves all extremities in all planes of motion. Skin: dry, intact no rashes or lesions Objective Lab Results 04/17/22 21:26 04/19/22 05:49 Meds Allergies and Active Meds Allergies No Known Allergies Allergy (Verified 04/17/22 18:54) A&P - Hospitalist Assessment/Plan (1) Acute hyponatremia: Plan: ? Likely secondary to increase fluid intake with decrease salt intake recently and attempt to lose weight and control blood pressure ? Monitor, no intervention indicated this point time. Asymptomatic (2) Hypokalemia: Plan: Replenish as needed ? Checking magnesium, morning BMP ?Plan to discharge with p.o. magnesium (3) Elevated bilirubin: Plan: Chronic (4) Resistant hypertension: Plan: Continue amlodipine, lisinopril, Coreg as needed ? Renal and aldosterone levels pending ? Total cortisol normal (5) Long QT interval: Plan: Elevated, first EKG on febrile was 490 ? EKG on admission last night showed TC of 515 ? Repeat EKG today shows QTc of 488 ? Checking electrolytes in the morning, she is not on any QT prolonging drugs ? Morning EKG ? We will likely refer to cardiology in the outpatient for further management. Documented By: Stephane Juárez DO 04/21/22 1606 Signed By: <Electronically signed by Stephane Juárez DO> 04/21/22 1610 [facility] Work Phone: Chief Complaint and Reason for Visit Chief Complaint I10 E78.2 R73.09 Chief Complaint I10 E78.2 R73.09 high bp Chief Complaint I10 E78.2 R73.09 high bp high bp Reason for Visit Acute hyponatremia Elevated bilirubin Hypertension Hypokalemia Resistant hypertension Chief Complaint I10 E78.2 R73.09 high bp high bp Reason for Visit Acute hyponatremia Elevated bilirubin Hypertension Hypokalemia Long QT interval Resistant hypertension Chief Complaint I10 E78.2 R73.09 high bp high bp E87.6 Reason for Visit Acute hyponatremia Elevated bilirubin Hypertension Hypokalemia Long QT interval Resistant hypertension Chief Complaint I10 E78.2 R73.09 high bp high bp E87.6 I10 E87.1 E87.6 Reason for Visit Acute hyponatremia Elevated bilirubin Hypertension Hypokalemia Long QT interval Resistant hypertension Chief Complaint I10 E78.2 R73.09 high bp high bp E87.6 I10 E87.1 E87.6 i10 Reason for Visit Acute hyponatremia Elevated bilirubin Hypertension Hypokalemia Long QT interval Resistant hypertension Chief Complaint I10 E78.2 R73.09 high bp high bp E87.6 I10 E87.1 E87.6 i10 I10 Reason for Visit Acute hyponatremia Elevated bilirubin Hypertension Hypokalemia Long QT interval Resistant hypertension Chief Complaint i10 Advance Directives No Advanced Directives Records Found Advance Directive Response Recorded Date/ Time Advance Directives No November 28, 2017 3:42pm Advance Directive Response Recorded Date/ Time Advance Directives No November 28, 2017 4:42pm Family History No Family History Records Found Relationship Condition Age at Onset Recorded Date/T tika Not Specified Hypertension Unknown father Heart disease Unknown Summary Purpose Additional Source Comments REASON FOR VISIT (unrecogniz ed section and content) AWV, [id number]/RE NEE, [id number] today2 WEEK FOLLOW UP/hospital follow upblood pressureslab results4 WEEK FOLLOW UPHTN and HIGH RENIN LEVELSNephrology Office Notesmed refill4 month Follow up, [id number] Care Teams (unrecognized sec tion and content) Team Status: Inactive Member Role Status Dates Becky Holder DNP Primary Care Provider, Attending Provider Active Team Status: Active Member Role Status Dates Becky Holder DNP Primary Care Provider Active Team Status: Inactive Member Role Status Dates Becky Hloder DNP Primary Care Provider Active Sylvie Merritt MD Emergency Provider Active Team Status: Active Member Role Status Dates Becky Holder DNP Primary Care Provider Active Jessica Chawla Jr, MD Emergency Provider Active Selma Almendarez MD Admit Provider, Attending Provider Active Team Status: Inactive Member Role Status Dates Becky Holder DNP Primary Care Provider Active Jessica Chawla Jr, MD Emergency Provider Active Selma Almendarez MD Admit Provider Active Stephane Juárez DO Attending Provider Active Team Status: Inactive Member Role Status Dates Becky Holder DNP Primary Care Provider Active Stephane Juárez DO Attending Provider Active Team Status: Inactive Member Role Status Dates Becky Holder DNP Primary Care Provider Active Henrik Shafer MD Attending Provider Active Goals (unrecognized section and content) Goals may be documented in a n alternate section INFORMATION SOURCE (unrecogn ized section and content) DATE CREATED AUTHOR 11/07/2022 [facility] DATE CREATED AUTHOR AUTHOR'S NUBIA RICHARDS 08/02/2023 [facility] FOR RECORDS PERTAINING TO PATIENTS WHO ARE OR HAVE BEEN ENROLLED IN A CHEMICAL DEPENDENCY/SUBSTANCEABUSE PROGRAM, SOME INFORMATION MAY BE OMITTED. This clinical summary was aggregated from multiple sources. Caution should be exercised in using it in the provision of clinical care. This summary normalizes information from multiple sources, and as a consequence, information in this document may materially change the coding, format and clinical context of patient data. In addition, data may be omitted in some cases. CLINICAL DECISIONS SHOULD BE BASED ON THE PRIMARY CLINICAL RECORDS. [employer] provides no warranty or guarantee of the accuracy or completeness of information in this document.
[2024-02-01 07:47] LABS: Alanine Aminotransferase 30 U/L (14-59); Albumin Globulin Ratio 1.2; Albumin Level 3.6 g/dL (3.4-5.0); Alkaline Phosphatase 48 U/L (46-116); Aspartate Amino Transferase 18 U/L (15-37); Bilirubin Direct 0.2 mg/dL (0.0-0.2); Bilirubin Total 1.2 mg/dL (0.2-1.0); Chol HDL Ratio 2.6; Cholesterol 162 mg/dL (<=200); Globulin 2.9 g/dL; HDL Cholesterol 62 mg/dL (40-60); Total Protein 6.5 g/dL (6.4-8.2); Triglycerides 57 mg/dL (<=150); VLDL CHOLESTEROL 11.4 mg/dL
== END 2024-02-01 07:07 | disposition home or self-care (01) ==
LOC: LAB 07:08
PROVIDERS: PCP Nurse Practitioner Family; Visit Provider Nurse Practitioner Family
DX: E78.2 Mixed hyperlipidemia (principal)
CPT/HCPCS: 36415; 80061; 80076